=== PATIENT | male | born 1955 | race Caucasian/White ===

== ENCOUNTER 2017-07-28 18:31 | Emergency (ER) | payer MEDICAID, OTHER ==
[~2017-07-28] VITALS: Ht 174 cm; Wt 97.2 kg
[~2017-07-28 18:31] MED LIST: FERR325T28 PO; FOLI0.4T2 PO; FURO-150 PO; LACT10SO PO; MULT-933 PO; PANT40TA4 PO; SPIR25TA3 PO
[2017-07-28 21:56] LABS: ALANINE AMINOTRANSFERASE 31 U/L (12-78); ALBUMIN 1.7 G/DL (3.4-5.0); ALBUMIN/GLOBULIN RATIO 0.4 (1.1-1.5); ALKALINE PHOSPHATASE 235 IU/L (46-116); ANION GAP 11 (8-16); ASPARTATE AMINO TRANSFERASE 36 U/L (10-37); BILIRUBIN,TOTAL 0.7 MG/DL (0.1-1.0); BLOOD UREA NITROGEN 26 MG/DL (7-18); BUN/CREATININE RATIO 17.9 (5.4-32.0); CALCIUM 7.3 MG/DL (8.5-10.1); CHLORIDE 108 MMOL/L (99-107); CREATININE 1.45 MG/DL (0.60-1.10); GLUCOSE 114 MG/DL (70-104); POTASSIUM 3.1 MMOL/L (3.5-5.1); SODIUM 139 MMOL/L (135-145); TOTAL CARBON DIOXIDE 20.2 MMOL/L (24-32); TOTAL PROTEIN 6.5 G/DL (6.4-8.2); eGFR 49 ML/MIN
[2017-07-28 22:06] LABS: BASOPHILS % (AUTO) 0.3 % (0-1); EOSINOPHILS # (AUTO) 0.3 X10'3 (0-0.9); EOSINOPHILS % (AUTO) 3.7 % (0-6); HEMATOCRIT 24.4 % (42.0-52.0); HEMOGLOBIN 8.4 g/dl (14.0-17.9); LYMPHOCYTES # (AUTO) 0.7 X10'3 (1.1-4.8); LYMPHOCYTES % (AUTO) 7.2 % (21-51); MEAN CORPUSCULAR HEMOGLOBIN 30.6 PG (27.0-31.0); MEAN CORPUSCULAR HGB CONC 34.5 % (33.0-36.5); MEAN CORPUSCULAR VOLUME 88.5 FL (78-98); MEAN PLATELET VOLUME 6.6 FL (7.4-10.4); MONOCYTES # (AUTO) 0.8 X10'3 (0-0.9); MONOCYTES % (AUTO) 8.8 % (2-12); NEUTROPHILS # (AUTO) 7.2 X10'3 (1.8-7.7); PLATELET COUNT 120 X10'3 (140-440); RED BLOOD COUNT 2.76 X10'6 (4.70-6.10); RED CELL DISTRIBUTION WIDTH 19.5 % (11.5-14.5)
[2017-07-28 23:23] LABS: BFCOLOR RED
[2017-07-28 23:24] LABS: BF MESOTHELIAL CELLS FEW; BF RBC COUNT 51500 /CU MM; BF WBC COUNT 325 /CU MM (0-1000); BFVOLUME 7 ML; LYMPHOCYTES,BODY FLUID 10 %; MONOCYTES,BODY FLUID 8 %; NEUTROPHILS,BODY FLUID 82 %
[2017-07-28 23:25] LABS: BFAPPEAR BLOODY
[2017-07-29 00:10] VITALS: BP 138/77
== END 2017-07-28 23:58 | disposition home or self-care (01) ==
LOC: UNMERGE 18:32 → ER 18:32 → MERGE 18:32 → ER 23:58
DX: R18.8 Other ascites (principal); I50.9 Heart failure, unspecified; M06.9 Rheumatoid arthritis, unspecified; Z56.0 Unemployment, unspecified; Z60.2 Problems related to living alone; Z79.899 Other long term (current) drug therapy
CPT/HCPCS: 36415; 49082; 80053; 85025; 89051; 99285; A6257

== ENCOUNTER 2017-07-29 20:48 | Inpatient (IN) | payer MEDICAID, OTHER ==
[~2017-07-29] VITALS: Ht 175.3 cm; Wt 87.0 kg
[2017-07-29] MEDS ORDERED: normal saline 1000ML IV soln IVB ONE (22:15)
[2017-07-29 22:52] LABS: BASOPHILS % (AUTO) 0 % (0-1); EOSINOPHILS % (AUTO) 0.1 % (0-6); HEMATOCRIT 28.2 % (42.0-52.0); HEMOGLOBIN 9.5 g/dl (14.0-17.9); LYMPHOCYTES # (AUTO) 0.5 X10'3 (1.1-4.8); LYMPHOCYTES % (AUTO) 2.8 % (21-51); MEAN CORPUSCULAR HEMOGLOBIN 29.5 PG (27.0-31.0); MEAN CORPUSCULAR HGB CONC 33.7 % (33.0-36.5); MEAN CORPUSCULAR VOLUME 87.5 FL (78-98); MEAN PLATELET VOLUME 6.1 FL (7.4-10.4); MONOCYTES # (AUTO) 1.4 X10'3 (0-0.9); MONOCYTES % (AUTO) 7.1 % (2-12); NEUTROPHILS # (AUTO) 17.4 X10'3 (1.8-7.7); PLATELET COUNT 169 X10'3 (140-440); RED BLOOD COUNT 3.22 X10'6 (4.70-6.10); RED CELL DISTRIBUTION WIDTH 20.7 % (11.5-14.5); WHITE BLOOD COUNT 19.4 X10'3 (4.5-11.0)
[2017-07-29 23:03] LABS: INR 1.2 INR; PARTIAL THROMBOPLASTIN TIME 31 SECONDS (22-32)
[2017-07-29 23:11] LABS: LACTIC SEPSIS 1.4 MMOL/L (0.4-2.0)
[2017-07-29 23:18] LABS: ALANINE AMINOTRANSFERASE 35 U/L (12-78); ALBUMIN 1.8 G/DL (3.4-5.0); ALBUMIN/GLOBULIN RATIO 0.3 (1.1-1.5); ALKALINE PHOSPHATASE 255 IU/L (46-116); ANION GAP 11 (8-16); ASPARTATE AMINO TRANSFERASE 38 U/L (10-37); BILIRUBIN,TOTAL 0.8 MG/DL (0.1-1.0); BLOOD UREA NITROGEN 25 MG/DL (7-18); BUN/CREATININE RATIO 16.8 (5.4-32.0); CALCIUM 7.4 MG/DL (8.5-10.1); CHLORIDE 107 MMOL/L (99-107); CREATININE 1.49 MG/DL (0.60-1.10); ETHANOL < 0.010 GM/DL (0.0-0.010); GLUCOSE 119 MG/DL (70-104); SODIUM 138 MMOL/L (135-145); TOTAL CARBON DIOXIDE 19.9 MMOL/L (24-32); TOTAL PROTEIN 7.1 G/DL (6.4-8.2); eGFR 48 ML/MIN
[2017-07-30] MEDS ORDERED: lactulose 20gm/30ml cup PO ONE (00:05)
[2017-07-30] MEDS ORDERED: piperacillin/tazo 3.375gm/50ml 50 ML IV ONE ×2 (00:30→03:07)
[2017-07-30] MEDS ORDERED: magnesium 4gm in 100ml NS 100 ML IV PRN (00:45)
[2017-07-30] MEDS ORDERED: magnesium 2GM in 50ml NS 50 ML IV PRN (00:45)
[2017-07-30] MEDS ORDERED: ondansetron/PF 4mg/2ml inj IV PRN (00:45)
[2017-07-30] MEDS ORDERED: magnesium Cl slow-release 64mg tablet PO PRN (00:45)
[2017-07-30] MEDS ORDERED: potassium Cl 20 mEq SR tablet PO PRN (00:45)
[2017-07-30] MEDS ORDERED: mag hydrox/Alum hydrox/simeth 30ml oral suspension PO PRN (00:45)
[2017-07-30] MEDS ORDERED: albuterol 2.5 MG/3 ML nebule NEB PRN (00:45)
[2017-07-30] MEDS ORDERED: potassium Cl 40MEQ/NS 500ml 500 ML IV PRN ×2 (00:45)
[2017-07-30] MEDS ORDERED: HYDROmorphone inj. 0.5 MG/0.5 ML DISP.SYRIN IV PRN ×2 (00:45)
[2017-07-30] MEDS ORDERED: magnesium hydroxide 30ml (MOM) UD suspension PO PRN (00:45)
[2017-07-30 01:05] LABS: URINE AMPHETAMINE SCREEN POSITIVE (Neg); URINE BARBITUATE SCREEN NEGATIVE (Neg); URINE BENZODIAZEPINES SCREEN NEGATIVE (Neg); URINE CANNABINOID SCREEN NEGATIVE (Neg); URINE COCAINE SCREEN NEGATIVE (Neg); URINE METHADONE SCREEN NEGATIVE (Neg); URINE OPIATE SCREEN POSITIVE (Neg); URINE PHENCYCLIDINE SCREEN NEGATIVE (Neg)
[2017-07-30 02:15] VITALS: BP 115/81
[2017-07-30] MEDS: normal saline 1000ml 1,000 ML IV SCH ×2 (02:27→12:49)
[2017-07-30] MEDS: K and/or MAG REPLACEMENT MC SCH (08:00)
[2017-07-30] MEDS: piperacillin/tazo 4.5gm/100ml 100 ML IV SCH ×2 (08:37→14:50)
[2017-07-30] MEDS: heparin, porcine 5000 units/ml vial SQ SCH ×2 (08:41→20:42)
[2017-07-30 08:59] VITALS: BP 112/65
[2017-07-30 10:40] LABS: ALBUMIN 1.6 G/DL (3.4-5.0); ANION GAP 10 (8-16); BLOOD UREA NITROGEN 27 MG/DL (7-18); BUN/CREATININE RATIO 17.5 (5.4-32.0); CALCIUM 7.8 MG/DL (8.5-10.1); CHLORIDE 110 MMOL/L (99-107); CREATININE 1.54 MG/DL (0.60-1.10); GLUCOSE 74 MG/DL (70-104); POTASSIUM 4.1 MMOL/L (3.5-5.1); SODIUM 140 MMOL/L (135-145); eGFR 46 ML/MIN
[2017-07-30] MEDS ORDERED: PANT40TA4 PO (11:49)
[2017-07-30] MEDS ORDERED: MULT-933 PO (11:49)
[2017-07-30] MEDS ORDERED: FURO20TA4 PO (11:49)
[2017-07-30] MEDS ORDERED: POTA10TA15 PO (11:49)
[2017-07-30 15:12] VITALS: BP 114/68
[2017-07-30 16:00] VITALS: BP 95/69
[2017-07-30] MEDS ORDERED: ibuprofen 200mg tablet PO PRN (20:45)
[2017-07-30] MEDS ORDERED: temazepam 15mg capsule PO PRN (21:00)
[2017-07-30 22:00] VITALS: BP 99/64
[2017-07-30] MEDS ORDERED: furosemide 40mg/4ml inj IV ONE (23:20)
[2017-07-30] MEDS ORDERED: LORazepam 0.5 MG tablet PO PRN (23:20)
[2017-07-31] VITALS (9 sets, daily range): BP systolic 100–122; BP diastolic 62–76
[2017-07-31] MEDS: piperacillin/tazo 4.5gm/100ml 100 ML IV SCH ×4 (00:30→23:59)
[2017-07-31] MEDS: lactulose 20gm/30ml cup PO SCH ×4 (01:50→20:10)
[2017-07-31 05:56] LABS: BASOPHILS % (AUTO) 0.3 % (0-1); EOSINOPHILS # (AUTO) 0.3 X10'3 (0-0.9); EOSINOPHILS % (AUTO) 4.5 % (0-6); HEMOGLOBIN 7.3 g/dl (14.0-17.9); LYMPHOCYTES # (AUTO) 0.5 X10'3 (1.1-4.8); LYMPHOCYTES % (AUTO) 7.2 % (21-51); MEAN CORPUSCULAR HGB CONC 34.7 % (33.0-36.5); MEAN CORPUSCULAR VOLUME 86.6 FL (78-98); MEAN PLATELET VOLUME 6.6 FL (7.4-10.4); MONOCYTES # (AUTO) 0.6 X10'3 (0-0.9); MONOCYTES % (AUTO) 7.5 % (2-12); NEUTROPHILS # (AUTO) 6.1 X10'3 (1.8-7.7); NEUTROPHILS % (AUTO) 80.5 % (42-75); PLATELET COUNT 101 X10'3 (140-440); RED BLOOD COUNT 2.43 X10'6 (4.70-6.10); RED CELL DISTRIBUTION WIDTH 19.8 % (11.5-14.5); WHITE BLOOD COUNT 7.6 X10'3 (4.5-11.0)
[2017-07-31 06:07] LABS: HEMATOCRIT 21.1 % (42.0-52.0)
[2017-07-31 06:36] LABS: ALANINE AMINOTRANSFERASE 34 U/L (12-78); ALBUMIN 1.5 G/DL (3.4-5.0); ALBUMIN/GLOBULIN RATIO 0.3 (1.1-1.5); ALKALINE PHOSPHATASE 201 IU/L (46-116); ANION GAP 10 (8-16); ASPARTATE AMINO TRANSFERASE 40 U/L (10-37); BILIRUBIN,TOTAL 0.7 MG/DL (0.1-1.0); BLOOD UREA NITROGEN 28 MG/DL (7-18); BUN/CREATININE RATIO 16.5 (5.4-32.0); CHLORIDE 110 MMOL/L (99-107); GLUCOSE 103 MG/DL (70-104); MAGNESIUM 1.9 MG/DL (1.5-2.4); POTASSIUM 3.7 MMOL/L (3.5-5.1); SODIUM 139 MMOL/L (135-145); TOTAL CARBON DIOXIDE 19.4 MMOL/L (24-32); TOTAL PROTEIN 5.8 G/DL (6.4-8.2); eGFR 41 ML/MIN
[2017-07-31] MEDS: heparin, porcine 5000 units/ml vial SQ SCH ×2 (07:29→21:52)
[2017-07-31] MEDS: furosemide 40mg/4ml inj IV SCH (07:29)
[2017-07-31] MEDS: K and/or MAG REPLACEMENT MC SCH (08:00)
[2017-07-31] MEDS ORDERED: acetaminophen 325mg tablet PO ONE (10:15)
[2017-07-31] MEDS ORDERED: diphenhydrAMINE 50 mg/ml inj IV ONE (10:15)
[2017-07-31] MEDS ORDERED: furosemide 40mg/4ml inj IV ONE (12:15)
[2017-07-31] MEDS: lactobacillus rhamnosus 10,000 MMU CELLS/CAPSULE PO SCH (20:10)
[2017-08-01] VITALS (9 sets, daily range): BP systolic 99–117; BP diastolic 63–76
[2017-08-01] MEDS: lactulose 20gm/30ml cup PO SCH ×4 (02:00→19:21)
[2017-08-01 05:54] LABS: BASOPHILS % (AUTO) 0.5 % (0-1); EOSINOPHILS # (AUTO) 0.4 X10'3 (0-0.9); EOSINOPHILS % (AUTO) 5.8 % (0-6); HEMOGLOBIN 7.6 g/dl (14.0-17.9); LYMPHOCYTES # (AUTO) 0.5 X10'3 (1.1-4.8); LYMPHOCYTES % (AUTO) 7.7 % (21-51); MEAN CORPUSCULAR HEMOGLOBIN 29.8 PG (27.0-31.0); MEAN CORPUSCULAR HGB CONC 34.9 % (33.0-36.5); MEAN CORPUSCULAR VOLUME 85.5 FL (78-98); MEAN PLATELET VOLUME 6.1 FL (7.4-10.4); MONOCYTES # (AUTO) 0.6 X10'3 (0-0.9); MONOCYTES % (AUTO) 8.9 % (2-12); NEUTROPHILS # (AUTO) 5.2 X10'3 (1.8-7.7); NEUTROPHILS % (AUTO) 77.1 % (42-75); PLATELET COUNT 110 X10'3 (140-440); RED BLOOD COUNT 2.55 X10'6 (4.70-6.10); RED CELL DISTRIBUTION WIDTH 18.9 % (11.5-14.5); WHITE BLOOD COUNT 6.8 X10'3 (4.5-11.0)
[2017-08-01 06:10] LABS: ALANINE AMINOTRANSFERASE 33 U/L (12-78); ALBUMIN 1.4 G/DL (3.4-5.0); ALBUMIN/GLOBULIN RATIO 0.3 (1.1-1.5); ALKALINE PHOSPHATASE 189 IU/L (46-116); ANION GAP 11 (8-16); ASPARTATE AMINO TRANSFERASE 35 U/L (10-37); BLOOD UREA NITROGEN 23 MG/DL (7-18); BUN/CREATININE RATIO 13.9 (5.4-32.0); CHLORIDE 110 MMOL/L (99-107); CREATININE 1.66 MG/DL (0.60-1.10); GLUCOSE 94 MG/DL (70-104); MAGNESIUM 1.7 MG/DL (1.5-2.4); POTASSIUM 3.4 MMOL/L (3.5-5.1); SODIUM 140 MMOL/L (135-145); TOTAL CARBON DIOXIDE 19.2 MMOL/L (24-32); TOTAL PROTEIN 5.9 G/DL (6.4-8.2); eGFR 42 ML/MIN
[2017-08-01 06:15] LABS: HEMATOCRIT 21.8 % (42.0-52.0)
[2017-08-01] MEDS: K and/or MAG REPLACEMENT MC SCH (08:00)
[2017-08-01] MEDS: furosemide 40mg/4ml inj IV SCH (08:00)
[2017-08-01] MEDS: heparin, porcine 5000 units/ml vial SQ SCH ×2 (08:00→19:32)
[2017-08-01] MEDS: spironolactone 25 MG tablet PO SCH (08:30)
[2017-08-01] MEDS: lactobacillus rhamnosus 10,000 MMU CELLS/CAPSULE PO SCH ×2 (08:49→19:21)
[2017-08-01] MEDS: piperacillin/tazo 4.5gm/100ml 100 ML IV SCH ×3 (08:50→23:53)
[2017-08-01] MEDS: potassium Cl 20 mEq SR tablet PO PRN ×3 (08:50→19:21)
[2017-08-01] MEDS ORDERED: albumin (human) 25% 100 ML IV solution IV ONE (11:50)
[2017-08-01 12:52] LABS: LDH,BODY FLUID 44 U/L
[2017-08-01 12:54] LABS: BFAPPEAR BLOODY; BFCOLOR RED; BFVOLUME 48 ML
[2017-08-01 15:33] LABS: BF RBC COUNT 20325 /CU MM; BF WBC COUNT 158 /CU MM (0-1000)
[2017-08-01 15:38] LABS: LYMPHOCYTES,BODY FLUID 53 %; MONOCYTES,BODY FLUID 23 %; NEUTROPHILS,BODY FLUID 24 %
[2017-08-01] MEDS ORDERED: diphenhydrAMINE 50 mg/ml inj IV ONE (17:05)
[2017-08-01] MEDS ORDERED: acetaminophen 325mg tablet PO ONE (17:05)
[2017-08-01] MEDS ORDERED: furosemide 40mg/4ml inj IV ONE (19:05)
[2017-08-02] MEDS: lactulose 20gm/30ml cup PO SCH ×2 (02:00→08:00)
[2017-08-02] MEDS ORDERED: octreotide inj. 1,250 MCG in normal saline 250ml IV soln 243.75 ML IV SCH (04:05)
[2017-08-02] MEDS ORDERED: octreotide 200mcg/ml 5ml vial ONE (04:20)
[2017-08-02 06:00] VITALS: BP 106/69
[2017-08-02 06:07] LABS: BASOPHILS % (AUTO) 0.4 % (0-1); EOSINOPHILS # (AUTO) 0.3 X10'3 (0-0.9); EOSINOPHILS % (AUTO) 4.1 % (0-6); HEMATOCRIT 26.5 % (42.0-52.0); HEMOGLOBIN 9.3 g/dl (14.0-17.9); LYMPHOCYTES # (AUTO) 0.6 X10'3 (1.1-4.8); LYMPHOCYTES % (AUTO) 9.1 % (21-51); MEAN CORPUSCULAR HEMOGLOBIN 29.4 PG (27.0-31.0); MEAN CORPUSCULAR VOLUME 83.9 FL (78-98); MEAN PLATELET VOLUME 6.3 FL (7.4-10.4); MONOCYTES # (AUTO) 0.4 X10'3 (0-0.9); MONOCYTES % (AUTO) 6.7 % (2-12); NEUTROPHILS # (AUTO) 5.1 X10'3 (1.8-7.7); NEUTROPHILS % (AUTO) 79.7 % (42-75); PLATELET COUNT 113 X10'3 (140-440); RED BLOOD COUNT 3.16 X10'6 (4.70-6.10); RED CELL DISTRIBUTION WIDTH 19.8 % (11.5-14.5); WHITE BLOOD COUNT 6.4 X10'3 (4.5-11.0)
[2017-08-02 06:25] LABS: ALANINE AMINOTRANSFERASE 30 U/L (12-78); ALBUMIN/GLOBULIN RATIO 0.4 (1.1-1.5); ALKALINE PHOSPHATASE 174 IU/L (46-116); ANION GAP 13 (8-16); ASPARTATE AMINO TRANSFERASE 29 U/L (10-37); BILIRUBIN,TOTAL 1.8 MG/DL (0.1-1.0); BLOOD UREA NITROGEN 21 MG/DL (7-18); BUN/CREATININE RATIO 13.2 (5.4-32.0); CALCIUM 7.4 MG/DL (8.5-10.1); CHLORIDE 110 MMOL/L (99-107); CREATININE 1.59 MG/DL (0.60-1.10); GLUCOSE 81 MG/DL (70-104); MAGNESIUM 1.9 MG/DL (1.5-2.4); POTASSIUM 3.2 MMOL/L (3.5-5.1); SODIUM 142 MMOL/L (135-145); TOTAL CARBON DIOXIDE 18.8 MMOL/L (24-32); TOTAL PROTEIN 6.6 G/DL (6.4-8.2); eGFR 44 ML/MIN
[2017-08-02] MEDS: heparin, porcine 5000 units/ml vial SQ SCH (08:00)
[2017-08-02] MEDS: K and/or MAG REPLACEMENT MC SCH (08:00)
[2017-08-02] MEDS ORDERED: pantoprazole 40 MG vial IV SCH (08:00)
[2017-08-02] MEDS: spironolactone 25 MG tablet PO SCH (08:18)
[2017-08-02] MEDS: furosemide 40mg/4ml inj IV SCH (08:22)
[2017-08-02] MEDS: piperacillin/tazo 4.5gm/100ml 100 ML IV SCH (08:23)
[2017-08-02] MEDS: lactobacillus rhamnosus 10,000 MMU CELLS/CAPSULE PO SCH (08:30)
[2017-08-02] MEDS ORDERED: potassium Cl 20 mEq SR tablet PO STA (11:39)
[2017-08-02 13:24] LABS: HBSAG SCREEN Negative (Negative); HEP A AB, IGM Negative (Negative); HEPATITIS C ANTIBODY 0.1 s/co ratio (0.0-0.9)
[2017-08-02] MEDS ORDERED: piperacillin/tazobactam inj. 3.375 GM in normal saline 100ml IV SCH (14:00)
[2017-08-03] MEDS ORDERED: potassium Cl 20 mEq SR tablet PO SCH (08:00)
== END 2017-08-02 14:30 | disposition home or self-care (01) | DRG 279 ==
LOC: ER 20:48 → EDBD 20:48 → ED HOLD 07-30 00:41 → ORTHO 4S 07-30 01:50
PROVIDERS: ADMIT Internal Medicine; ATTEND Internal Medicine
PROC: 30233N1 Transfusion of Nonautologous Red Blood Cells into Peripheral Vein, Percutaneous Approach (ICD-10-PCS; 2017-07-31)
PROC: 0W9G3ZZ Drainage of Peritoneal Cavity, Percutaneous Approach (ICD-10-PCS; principal; 2017-08-01)
DX: K72.00 Acute and subacute hepatic failure without coma (principal); R65.11 Systemic inflammatory response syndrome (SIRS) of non-infectious origin with acute organ dysfunction; G93.41 Metabolic encephalopathy; N17.9 Acute kidney failure, unspecified; R18.8 Other ascites; K74.60 Unspecified cirrhosis of liver; E87.0 Hyperosmolality and hypernatremia; D69.59 Other secondary thrombocytopenia; K76.6 Portal hypertension; D63.8 Anemia in other chronic diseases classified elsewhere; F11.10 Opioid abuse, uncomplicated; F15.10 Other stimulant abuse, uncomplicated
CPT/HCPCS: 36415; 49083; 70450; 71045; 80048; 80053; 80305; 80320; 82140; 83605; 83615; 83735; 84443; 85025; 85610; 85730; 86709; 86803; 86885; 86900; 86901; 86920; 87040; 87070; 87075; 87340; 89051; 93005; 94760; 99285; C9113; J1200; J1644; J1940; J2354; J2543; J7030; P9016; P9047

== ENCOUNTER 2017-08-25 00:42 | Inpatient (IN) | payer MEDICAID ==
[2017-08-25] VITALS (11 sets, daily range): BP systolic 110–128; BP diastolic 67–85
[~2017-08-25] VITALS: Ht 175.3 cm; Wt 100.0 kg
[~2017-08-25 00:42] MED LIST changes: +FURO20TA4 PO; +MYCOL15CR TOP; +POTA10TA15 PO
[2017-08-25 02:19] LABS: BASOPHILS % (AUTO) 0 % (0-1); EOSINOPHILS # (AUTO) 0.2 X10'3 (0-0.9); EOSINOPHILS % (AUTO) 1.7 % (0-6); LYMPHOCYTES # (AUTO) 0.5 X10'3 (1.1-4.8); LYMPHOCYTES % (AUTO) 4.9 % (21-51); MEAN CORPUSCULAR HEMOGLOBIN 28.3 PG (27.0-31.0); MEAN CORPUSCULAR HGB CONC 33.8 % (33.0-36.5); MEAN CORPUSCULAR VOLUME 83.9 FL (78-98); MEAN PLATELET VOLUME 6.4 FL (7.4-10.4); MONOCYTES # (AUTO) 0.4 X10'3 (0-0.9); NEUTROPHILS # (AUTO) 8.5 X10'3 (1.8-7.7); NEUTROPHILS % (AUTO) 89.4 % (42-75); PLATELET COUNT 141 X10'3 (140-440); RED BLOOD COUNT 2.48 X10'6 (4.70-6.10); RED CELL DISTRIBUTION WIDTH 16.1 % (11.5-14.5); WHITE BLOOD COUNT 9.6 X10'3 (4.5-11.0)
[2017-08-25] MEDS ORDERED: morphine 4 MG/ML inj SYRINge IV ONE (02:20)
[2017-08-25 02:22] LABS: HEMATOCRIT 20.8 % (42.0-52.0)
[2017-08-25 02:23] LABS: INR 1.3 INR; PARTIAL THROMBOPLASTIN TIME 32 SECONDS (22-32); PROTHROMBIN TIME 13.4 SECONDS (9.0-12.0)
[2017-08-25 02:26] LABS: ALANINE AMINOTRANSFERASE 21 U/L (12-78); ALBUMIN 1.5 G/DL (3.4-5.0); ALBUMIN/GLOBULIN RATIO 0.3 (1.1-1.5); ALKALINE PHOSPHATASE 188 IU/L (46-116); ANION GAP 13 (8-16); ASPARTATE AMINO TRANSFERASE 23 U/L (10-37); BILIRUBIN,TOTAL 0.7 MG/DL (0.1-1.0); BLOOD UREA NITROGEN 25 MG/DL (7-18); BUN/CREATININE RATIO 12.6 (5.4-32.0); CALCIUM 7.5 MG/DL (8.5-10.1); CHLORIDE 109 MMOL/L (99-107); CREATINE KINASE 73 U/L (39-308); CREATININE 1.99 MG/DL (0.60-1.10); GLUCOSE 142 MG/DL (70-104); MAGNESIUM 1.7 MG/DL (1.5-2.4); SODIUM 141 MMOL/L (135-145); TOTAL CARBON DIOXIDE 19.2 MMOL/L (24-32); TOTAL PROTEIN 6.6 G/DL (6.4-8.2); eGFR 34 ML/MIN
[2017-08-25 02:32] LABS: POTASSIUM 2.9 MMOL/L (3.5-5.1)
[2017-08-25 02:33] LABS: ETHANOL < 0.010 GM/DL (0.0-0.010)
[2017-08-25] MEDS ORDERED: potassium chloride 10mEq CAPSULE.SA PO ONE (02:46)
[2017-08-25] MEDS ORDERED: potassium Cl 20 mEq/100mL bag IV ONE (02:50)
[2017-08-25 03:52] LABS: PLATELET ESTIMATE NORMAL; TOTAL CELLS COUNTED 100
[2017-08-25 03:53] LABS: ANISOCYTOSIS 1+; POIKILOCYTOSIS FEW
[2017-08-25 03:54] LABS: TOXIC GRANULATION 1+; TOXIC VACUOLATION 1+
[2017-08-25] MEDS ORDERED: potassium Cl 20 mEq SR tablet PO ONE (04:52)
[2017-08-25 05:33] LABS: CLARITY,URINE CLOUDY (Clear); COLOR,URINE YELLOW (Yellow); GLUCOSE, URINE NEGATIVE (Neg); KETONES,URINE NEGATIVE (Neg); LEUKOCYTE ESTERASE ,URINE SMALL (Neg); NITRITES, URINE NEGATIVE (Neg); OCCULT BLOOD,URINE LARGE (Neg); PROTEIN,URINE 30 mg/dl (Neg); UROBILINOGEN,URINE 0.2 E.U/dL (0.2-1.0)
[2017-08-25 05:44] LABS: UA COLLECTION TYPE CLN CATCH MIDSTREAM
[2017-08-25 05:51] LABS: URINE AMPHETAMINE SCREEN POSITIVE (Neg); URINE BARBITUATE SCREEN NEGATIVE (Neg); URINE BENZODIAZEPINES SCREEN NEGATIVE (Neg); URINE CANNABINOID SCREEN NEGATIVE (Neg); URINE COCAINE SCREEN NEGATIVE (Neg); URINE METHADONE SCREEN NEGATIVE (Neg); URINE OPIATE SCREEN POSITIVE (Neg); URINE PHENCYCLIDINE SCREEN NEGATIVE (Neg)
[2017-08-25 06:40] LABS: BACTERIA,URINE 4+ /HPF (Neg); MUCUS STRANDS FEW /LPF (Neg); RBC,URINE 20-50 /HPF (0-2); SQUAMOUS EPITHELIAL CELL,UR NONE SEEN /LPF (FEW); WBC,URINE 50-100 /HPF (0-4)
[2017-08-25 06:42] LABS: HYALINE CASTS 0-3 /LPF (NEGATIVE)
[2017-08-25] MEDS ORDERED: CefTRIAXone 2gm/D5W 50ml 50 ML IV ONE (07:25)
[2017-08-25] MEDS ORDERED: potassium Cl 40MEQ/NS 500ml 500 ML IV PRN ×2 (09:05)
[2017-08-25] MEDS ORDERED: ondansetron/PF 4mg/2ml inj IV PRN (09:05)
[2017-08-25] MEDS: K and/or MAG REPLACEMENT MC SCH (09:05)
[2017-08-25] MEDS ORDERED: HYDROcodone/acetaminophen 5mg/325mg tablet PO PRN (09:05)
[2017-08-25] MEDS ORDERED: mag hydrox/Alum hydrox/simeth 30ml oral suspension PO PRN (09:05)
[2017-08-25] MEDS ORDERED: magnesium 4gm in 100ml NS 100 ML IV PRN (09:05)
[2017-08-25] MEDS ORDERED: potassium Cl 20 mEq SR tablet PO PRN (09:05)
[2017-08-25] MEDS ORDERED: magnesium hydroxide 30ml (MOM) UD suspension PO PRN (09:05)
[2017-08-25] MEDS ORDERED: acetaminophen 650mg rectal suppository RC PRN (09:05)
[2017-08-25] MEDS ORDERED: morphine 4 MG/ML inj SYRINge IV PRN (09:05)
[2017-08-25] MEDS ORDERED: diphenhydrAMINE 50 mg/ml inj IV PRN (09:05)
[2017-08-25] MEDS ORDERED: magnesium 2GM in 50ml NS 50 ML IV PRN (09:05)
[2017-08-25] MEDS: CefTRIAXone/D5W-Rocephin 1gm 50 ML IV SCH (09:05)
[2017-08-25] MEDS ORDERED: acetaminophen 325mg tablet PO PRN ×2 (09:05)
[2017-08-25] MEDS ORDERED: LIDOcaine 2% 10ml TOPICAL JELLY (Urojet) MM ONE (10:30)
[2017-08-25] MEDS: octreotide inj. 1,250 MCG in normal saline 250ml IV soln 243.75 ML IV SCH (12:48)
[2017-08-25] MEDS: sodium bicarbonate 650mg tablet PO SCH ×2 (13:00→20:57)
[2017-08-25] MEDS ORDERED: LIDOcaine 1%/PF (10mg/ml) 5ml vial ONE (13:43)
[2017-08-25] MEDS: normal saline 1000ml 1,000 ML IV SCH (13:53)
[2017-08-25] MEDS: pantoprazole 40MG/NS 100ML BAG 100 ML IV SCH ×3 (13:53→20:58)
[2017-08-25 14:48] LABS: ALBUMIN,BODY FLUID < 0.6 G/DL
[2017-08-25 15:21] LABS: LYMPHOCYTES,BODY FLUID 36 %; MONOCYTES,BODY FLUID 31 %; NEUTROPHILS,BODY FLUID 33 %
[2017-08-25 15:27] LABS: BF RBC COUNT 195 /CU MM; BF WBC COUNT 110 /CU MM (0-1000); BFAPPEAR HAZY; BFCOLOR YELLOW; BFVOLUME 60 ML
[2017-08-25 15:28] LABS: BF MESOTHELIAL CELLS FEW
[2017-08-25] MEDS: vancomycin inj 1,250 MG in normal saline 250ml IV soln 250 ML IV SCH (16:09)
[2017-08-25] MEDS: lactulose 20gm/30ml cup PO SCH (16:51)
[2017-08-25] MEDS: furosemide 10 MG/1 ML 10ml inj IV SCH ×2 (16:51→20:57)
[2017-08-25] MEDS: lactobacillus rhamnosus 10,000 MMU CELLS/CAPSULE PO SCH (20:57)
[2017-08-25] MEDS: heparin, porcine 5000 units/ml vial SQ SCH (20:58)
[2017-08-25] MEDS: potassium Cl 20 mEq SR tablet PO PRN (21:57)
[2017-08-25] MEDS: HYDROcodone/acetaminophen 10/325mg tab PO PRN (22:24)
[2017-08-26] VITALS (17 sets, daily range): BP systolic 104–136; BP diastolic 67–88
[2017-08-26] MEDS: lactulose 20gm/30ml cup PO SCH ×3 (00:19→16:00)
[2017-08-26] MEDS: pantoprazole 40MG/NS 100ML BAG 100 ML IV SCH ×5 (01:29→20:53)
[2017-08-26 05:34] LABS: BASOPHILS % (AUTO) 0.1 % (0-1); EOSINOPHILS # (AUTO) 0.3 X10'3 (0-0.9); EOSINOPHILS % (AUTO) 4.1 % (0-6); HEMOGLOBIN 8.5 g/dl (14.0-17.9); LYMPHOCYTES # (AUTO) 0.5 X10'3 (1.1-4.8); LYMPHOCYTES % (AUTO) 7.6 % (21-51); MEAN CORPUSCULAR HEMOGLOBIN 28.4 PG (27.0-31.0); MEAN CORPUSCULAR VOLUME 83.5 FL (78-98); MEAN PLATELET VOLUME 5.9 FL (7.4-10.4); MONOCYTES # (AUTO) 0.3 X10'3 (0-0.9); MONOCYTES % (AUTO) 4.2 % (2-12); PLATELET COUNT 107 X10'3 (140-440); RED CELL DISTRIBUTION WIDTH 16.4 % (11.5-14.5); WHITE BLOOD COUNT 7.2 X10'3 (4.5-11.0)
[2017-08-26 06:07] LABS: ALANINE AMINOTRANSFERASE 20 U/L (12-78); ALBUMIN 1.3 G/DL (3.4-5.0); ALBUMIN/GLOBULIN RATIO 0.3 (1.1-1.5); ALKALINE PHOSPHATASE 143 IU/L (46-116); ANION GAP 11 (8-16); ASPARTATE AMINO TRANSFERASE 19 U/L (10-37); BILIRUBIN,TOTAL 0.9 MG/DL (0.1-1.0); BLOOD UREA NITROGEN 26 MG/DL (7-18); BUN/CREATININE RATIO 13.1 (5.4-32.0); CALCIUM 7.4 MG/DL (8.5-10.1); CHLORIDE 110 MMOL/L (99-107); CREATININE 1.98 MG/DL (0.60-1.10); GLUCOSE 91 MG/DL (70-104); MAGNESIUM 1.6 MG/DL (1.5-2.4); PHOSPHORUS 4.1 MG/DL (2.3-4.5); POTASSIUM 3.7 MMOL/L (3.5-5.1); SODIUM 142 MMOL/L (135-145); TOTAL CARBON DIOXIDE 21.3 MMOL/L (24-32); TOTAL PROTEIN 6.2 G/DL (6.4-8.2); eGFR 35 ML/MIN
[2017-08-26] MEDS: CefTRIAXone/D5W-Rocephin 1gm 50 ML IV SCH (07:16)
[2017-08-26] MEDS: heparin, porcine 5000 units/ml vial SQ SCH ×2 (08:00→20:56)
[2017-08-26] MEDS: K and/or MAG REPLACEMENT MC SCH (08:00)
[2017-08-26] MEDS: furosemide 10 MG/1 ML 10ml inj IV SCH ×2 (08:34→20:56)
[2017-08-26] MEDS: pantoprazole 40mg Tablet.DR PO SCH (08:35)
[2017-08-26] MEDS: ferrous sulfate 325mg tablet PO SCH (08:35)
[2017-08-26] MEDS: folic acid 0.4mg tablet PO SCH (08:35)
[2017-08-26] MEDS: lactobacillus rhamnosus 10,000 MMU CELLS/CAPSULE PO SCH ×2 (08:35→20:56)
[2017-08-26] MEDS: sodium bicarbonate 650mg tablet PO SCH ×3 (08:35→20:56)
[2017-08-26] MEDS: vancomycin inj 1,250 MG in normal saline 250ml IV soln 250 ML IV SCH (08:38)
[2017-08-26] MEDS: spironolactone 25 MG tablet PO SCH (09:29)
[2017-08-26] MEDS: rifaximin 550mg tablet PO SCH ×2 (10:33→20:56)
[2017-08-26] MEDS: HYDROcodone/acetaminophen 10/325mg tab PO PRN ×2 (10:47→21:12)
[2017-08-26] MEDS: octreotide inj. 1,250 MCG in normal saline 250ml IV soln 243.75 ML IV SCH (12:59)
[2017-08-26] MEDS ORDERED: MIDAZolam 5mg/5ml vial ONE (13:36)
[2017-08-26] MEDS ORDERED: fentaNYL/PF 50MCG/1 ML 2ML syringe ONE (13:36)
[2017-08-26] MEDS ORDERED: LIDOcaine Viscous 15ml cup ONE (13:37)
[2017-08-26] MEDS ORDERED: fluconazole 100mg tablet PO ONE (15:00)
[2017-08-26] MEDS: emollient combination-Eucerin 250 ML LOTION TP SCH (20:54)
[2017-08-27] MEDS: lactulose 20gm/30ml cup PO SCH ×5 (00:42→20:31)
[2017-08-27] MEDS: pantoprazole 40MG/NS 100ML BAG 100 ML IV SCH ×3 (00:42→13:13)
[2017-08-27 02:00] VITALS: BP 115/80
[2017-08-27 06:00] VITALS: BP 112/70
[2017-08-27 06:01] LABS: BASOPHILS % (AUTO) 0.3 % (0-1); EOSINOPHILS # (AUTO) 0.3 X10'3 (0-0.9); EOSINOPHILS % (AUTO) 3.5 % (0-6); HEMATOCRIT 26.4 % (42.0-52.0); LYMPHOCYTES # (AUTO) 0.5 X10'3 (1.1-4.8); LYMPHOCYTES % (AUTO) 6.3 % (21-51); MEAN CORPUSCULAR HEMOGLOBIN 28.4 PG (27.0-31.0); MEAN CORPUSCULAR VOLUME 83.6 FL (78-98); MONOCYTES # (AUTO) 0.5 X10'3 (0-0.9); MONOCYTES % (AUTO) 5.8 % (2-12); NEUTROPHILS % (AUTO) 84.1 % (42-75); PLATELET COUNT 116 X10'3 (140-440); RED BLOOD COUNT 3.17 X10'6 (4.70-6.10); RED CELL DISTRIBUTION WIDTH 16.8 % (11.5-14.5); WHITE BLOOD COUNT 8.3 X10'3 (4.5-11.0)
[2017-08-27 06:17] LABS: ALANINE AMINOTRANSFERASE 19 U/L (12-78); ALBUMIN 1.3 G/DL (3.4-5.0); ALBUMIN/GLOBULIN RATIO 0.3 (1.1-1.5); ALKALINE PHOSPHATASE 135 IU/L (46-116); ANION GAP 11 (8-16); ASPARTATE AMINO TRANSFERASE 19 U/L (10-37); BILIRUBIN,TOTAL 0.6 MG/DL (0.1-1.0); BLOOD UREA NITROGEN 26 MG/DL (7-18); BUN/CREATININE RATIO 12.3 (5.4-32.0); CALCIUM 7.4 MG/DL (8.5-10.1); CHLORIDE 109 MMOL/L (99-107); CREATININE 2.12 MG/DL (0.60-1.10); GLUCOSE 126 MG/DL (70-104); MAGNESIUM 1.4 MG/DL (1.5-2.4); PHOSPHORUS 4.5 MG/DL (2.3-4.5); POTASSIUM 3.4 MMOL/L (3.5-5.1); SODIUM 142 MMOL/L (135-145); TOTAL CARBON DIOXIDE 22.4 MMOL/L (24-32); TOTAL PROTEIN 6.3 G/DL (6.4-8.2); eGFR 32 ML/MIN
[2017-08-27] MEDS: K and/or MAG REPLACEMENT MC SCH (08:00)
[2017-08-27] MEDS ORDERED: atenolol 25mg tablet PO SCH (08:00)
[2017-08-27] MEDS: magnesium Cl slow-release 64mg tablet PO PRN ×2 (08:25→17:53)
[2017-08-27] MEDS: fluconazole 100mg tablet PO SCH (08:25)
[2017-08-27] MEDS: heparin, porcine 5000 units/ml vial SQ SCH (08:25)
[2017-08-27] MEDS: folic acid 0.4mg tablet PO SCH (08:26)
[2017-08-27] MEDS: rifaximin 550mg tablet PO SCH ×2 (08:26→20:32)
[2017-08-27] MEDS: potassium Cl 20 mEq SR tablet PO PRN ×3 (08:26→17:53)
[2017-08-27] MEDS: sodium bicarbonate 650mg tablet PO SCH ×3 (08:26→20:32)
[2017-08-27] MEDS: lactobacillus rhamnosus 10,000 MMU CELLS/CAPSULE PO SCH ×2 (08:26→20:32)
[2017-08-27] MEDS: spironolactone 25 MG tablet PO SCH (08:26)
[2017-08-27] MEDS: pantoprazole 40mg Tablet.DR PO SCH (08:26)
[2017-08-27] MEDS: emollient combination-Eucerin 250 ML LOTION TP SCH ×2 (08:26→20:33)
[2017-08-27] MEDS: ferrous sulfate 325mg tablet PO SCH (08:26)
[2017-08-27] MEDS: furosemide 10 MG/1 ML 10ml inj IV SCH ×2 (08:26→20:33)
[2017-08-27] MEDS: CefTRIAXone/D5W-Rocephin 1gm 50 ML IV SCH (08:27)
[2017-08-27] MEDS: HYDROcodone/acetaminophen 10/325mg tab PO PRN ×2 (10:02→19:27)
[2017-08-27] MEDS: vancomycin inj 1,250 MG in normal saline 250ml IV soln 250 ML IV SCH (10:03)
[2017-08-27] MEDS: normal saline 1000ml 1,000 ML IV SCH (10:03)
[2017-08-27 10:27] LABS: OCCULT BLOOD STOOL NEGATIVE (Neg)
[2017-08-27 11:00] VITALS: BP 109/71
[2017-08-27] MEDS: propranolol 10mg tablet PO SCH ×2 (13:12→20:33)
[2017-08-27] MEDS: octreotide inj. 1,250 MCG in normal saline 250ml IV soln 243.75 ML IV SCH (13:13)
[2017-08-27 19:00] VITALS: BP 98/71
[2017-08-27 23:00] VITALS: BP 110/66
[2017-08-28 03:00] VITALS: BP 105/63
[2017-08-28] MEDS: lactulose 20gm/30ml cup PO SCH ×4 (04:00→23:55)
[2017-08-28 06:25] LABS: BASOPHILS % (AUTO) 0.2 % (0-1); EOSINOPHILS # (AUTO) 0.4 X10'3 (0-0.9); EOSINOPHILS % (AUTO) 4.9 % (0-6); HEMATOCRIT 27.9 % (42.0-52.0); HEMOGLOBIN 9.5 g/dl (14.0-17.9); LYMPHOCYTES # (AUTO) 0.7 X10'3 (1.1-4.8); LYMPHOCYTES % (AUTO) 8.4 % (21-51); MEAN CORPUSCULAR HEMOGLOBIN 28.6 PG (27.0-31.0); MEAN CORPUSCULAR HGB CONC 34.1 % (33.0-36.5); MONOCYTES # (AUTO) 0.5 X10'3 (0-0.9); MONOCYTES % (AUTO) 6.1 % (2-12); NEUTROPHILS # (AUTO) 6.9 X10'3 (1.8-7.7); NEUTROPHILS % (AUTO) 80.4 % (42-75); PLATELET COUNT 106 X10'3 (140-440); RED BLOOD COUNT 3.33 X10'6 (4.70-6.10); RED CELL DISTRIBUTION WIDTH 16.4 % (11.5-14.5); WHITE BLOOD COUNT 8.6 X10'3 (4.5-11.0)
[2017-08-28 06:35] VITALS: BP 96/64
[2017-08-28 06:50] LABS: ALANINE AMINOTRANSFERASE 19 U/L (12-78); ALBUMIN 1.3 G/DL (3.4-5.0); ALBUMIN/GLOBULIN RATIO 0.3 (1.1-1.5); ALKALINE PHOSPHATASE 118 IU/L (46-116); ANION GAP 13 (8-16); ASPARTATE AMINO TRANSFERASE 16 U/L (10-37); BILIRUBIN,TOTAL 0.7 MG/DL (0.1-1.0); BLOOD UREA NITROGEN 29 MG/DL (7-18); BUN/CREATININE RATIO 13.1 (5.4-32.0); CALCIUM 7.6 MG/DL (8.5-10.1); CHLORIDE 109 MMOL/L (99-107); CREATININE 2.21 MG/DL (0.60-1.10); GLUCOSE 85 MG/DL (70-104); MAGNESIUM 1.5 MG/DL (1.5-2.4); PHOSPHORUS 4.3 MG/DL (2.3-4.5); POTASSIUM 3.4 MMOL/L (3.5-5.1); SODIUM 144 MMOL/L (135-145); TOTAL CARBON DIOXIDE 21.7 MMOL/L (24-32); TOTAL PROTEIN 6.1 G/DL (6.4-8.2); eGFR 30 ML/MIN
[2017-08-28] MEDS: pantoprazole 40mg Tablet.DR PO SCH (07:30)
[2017-08-28] MEDS: furosemide 10 MG/1 ML 10ml inj IV SCH ×2 (08:00→20:00)
[2017-08-28] MEDS: propranolol 10mg tablet PO SCH ×3 (08:00→21:30)
[2017-08-28] MEDS: spironolactone 25 MG tablet PO SCH (08:00)
[2017-08-28] MEDS: K and/or MAG REPLACEMENT MC SCH (08:38)
[2017-08-28] MEDS: CefTRIAXone/D5W-Rocephin 1gm 50 ML IV SCH (08:45)
[2017-08-28] MEDS: ferrous sulfate 325mg tablet PO SCH (08:54)
[2017-08-28] MEDS: folic acid 0.4mg tablet PO SCH (08:54)
[2017-08-28] MEDS: rifaximin 550mg tablet PO SCH ×2 (08:54→21:31)
[2017-08-28] MEDS: sodium bicarbonate 650mg tablet PO SCH ×3 (08:54→21:30)
[2017-08-28] MEDS: potassium Cl 20 mEq SR tablet PO PRN (08:54)
[2017-08-28] MEDS: fluconazole 100mg tablet PO SCH (08:55)
[2017-08-28] MEDS: emollient combination-Eucerin 250 ML LOTION TP SCH ×2 (08:55→21:31)
[2017-08-28] MEDS: lactobacillus rhamnosus 10,000 MMU CELLS/CAPSULE PO SCH ×2 (08:55→21:31)
[2017-08-28] MEDS ORDERED: vancomycin/NS 1 GM ADD-VANTAGE 250 ML IV SCH ×2 (09:00→12:00)
[2017-08-28 11:00] VITALS: BP 97/62
[2017-08-28] MEDS ORDERED: VANCOMYCIN LEVEL IV ONE (11:30)
[2017-08-28] MEDS: HYDROcodone/acetaminophen 10/325mg tab PO PRN ×2 (13:26→21:50)
[2017-08-28 15:00] VITALS: BP 107/69
[2017-08-28 19:00] VITALS: BP 100/66
[2017-08-28 23:00] VITALS: BP 96/61
[2017-08-29] MEDS: lactulose 20gm/30ml cup PO SCH ×4 (00:05→08:06)
[2017-08-29 03:00] VITALS: BP 108/68
[2017-08-29 05:11] LABS: BASOPHILS % (AUTO) 0.4 % (0-1); EOSINOPHILS # (AUTO) 0.5 X10'3 (0-0.9); HEMATOCRIT 28.8 % (42.0-52.0); HEMOGLOBIN 9.7 g/dl (14.0-17.9); LYMPHOCYTES % (AUTO) 10.9 % (21-51); MEAN CORPUSCULAR HEMOGLOBIN 28.4 PG (27.0-31.0); MEAN CORPUSCULAR HGB CONC 33.6 % (33.0-36.5); MEAN CORPUSCULAR VOLUME 84.5 FL (78-98); MEAN PLATELET VOLUME 6.3 FL (7.4-10.4); MONOCYTES # (AUTO) 0.7 X10'3 (0-0.9); MONOCYTES % (AUTO) 7.5 % (2-12); NEUTROPHILS % (AUTO) 76.2 % (42-75); PLATELET COUNT 110 X10'3 (140-440); RED BLOOD COUNT 3.41 X10'6 (4.70-6.10); RED CELL DISTRIBUTION WIDTH 16.5 % (11.5-14.5); WHITE BLOOD COUNT 9.2 X10'3 (4.5-11.0)
[2017-08-29 05:29] LABS: ALANINE AMINOTRANSFERASE 16 U/L (12-78); ALBUMIN 1.5 G/DL (3.4-5.0); ALBUMIN/GLOBULIN RATIO 0.3 (1.1-1.5); ALKALINE PHOSPHATASE 124 IU/L (46-116); ANION GAP 7 (8-16); ASPARTATE AMINO TRANSFERASE 18 U/L (10-37); BILIRUBIN,TOTAL 0.7 MG/DL (0.1-1.0); BLOOD UREA NITROGEN 30 MG/DL (7-18); BUN/CREATININE RATIO 14.2 (5.4-32.0); CALCIUM 7.7 MG/DL (8.5-10.1); CHLORIDE 109 MMOL/L (99-107); CREATININE 2.12 MG/DL (0.60-1.10); MAGNESIUM 1.7 MG/DL (1.5-2.4); POTASSIUM 3.7 MMOL/L (3.5-5.1); SODIUM 141 MMOL/L (135-145); TOTAL CARBON DIOXIDE 24.8 MMOL/L (24-32); TOTAL PROTEIN 6.5 G/DL (6.4-8.2); eGFR 32 ML/MIN
[2017-08-29 05:30] LABS: GLUCOSE 106 MG/DL (70-104)
[2017-08-29 07:00] VITALS: BP 121/68
[2017-08-29] MEDS: K and/or MAG REPLACEMENT MC SCH (08:00)
[2017-08-29] MEDS: rifaximin 550mg tablet PO SCH (08:03)
[2017-08-29] MEDS: folic acid 0.4mg tablet PO SCH (08:03)
[2017-08-29] MEDS: spironolactone 25 MG tablet PO SCH (08:03)
[2017-08-29] MEDS: ferrous sulfate 325mg tablet PO SCH (08:03)
[2017-08-29] MEDS: fluconazole 100mg tablet PO SCH (08:03)
[2017-08-29] MEDS: pantoprazole 40mg Tablet.DR PO SCH (08:03)
[2017-08-29] MEDS: lactobacillus rhamnosus 10,000 MMU CELLS/CAPSULE PO SCH (08:03)
[2017-08-29] MEDS: sodium bicarbonate 650mg tablet PO SCH (08:03)
[2017-08-29] MEDS: propranolol 10mg tablet PO SCH (08:03)
[2017-08-29] MEDS: CefTRIAXone/D5W-Rocephin 1gm 50 ML IV SCH (08:04)
[2017-08-29] MEDS: furosemide 10 MG/1 ML 10ml inj IV SCH (08:05)
[2017-08-29] MEDS: emollient combination-Eucerin 250 ML LOTION TP SCH (08:06)
[2017-08-29 11:00] VITALS: BP 105/60
[2017-08-29] MEDS ORDERED: PROP10TA10 PO (11:29)
[2017-08-29] MEDS ORDERED: EMOL200L TP (11:29)
[2017-08-29] MEDS ORDERED: FLUC100T9 PO (11:29)
[2017-08-29] MEDS ORDERED: RIFA550T PO (11:29)
[2017-08-29] MEDS ORDERED: LACT1CAP26 PO (11:29)
[2017-08-29] MEDS ORDERED: SODI650T29 PO (11:29)
[2017-08-29] MEDS ORDERED: THI100T PO (11:29)
[2017-08-29] MEDS ORDERED: CEPH500C5 PO (11:29)
[2017-08-31] MEDS ORDERED: VANCOMYCIN LEVEL IV ONE (11:30)
== END 2017-08-29 12:40 | disposition home or self-care (01) | DRG 280 ==
LOC: ER 00:43 → ED HOLD 09:03 → EDBEDREQ 17:19 → PCU 3S 18:40
PROVIDERS: ADMIT Family Medicine; ATTEND Family Medicine
PROC: 0W9G3ZZ Drainage of Peritoneal Cavity, Percutaneous Approach (ICD-10-PCS; 2017-08-25)
PROC: 30233N1 Transfusion of Nonautologous Red Blood Cells into Peripheral Vein, Percutaneous Approach (ICD-10-PCS; 2017-08-25)
PROC: 06L38CZ Occlusion of Esophageal Vein with Extraluminal Device, Via Natural or Artificial Opening Endoscopic (ICD-10-PCS; principal; 2017-08-26)
DX: K70.31 Alcoholic cirrhosis of liver with ascites (principal); K70.40 Alcoholic hepatic failure without coma; R65.11 Systemic inflammatory response syndrome (SIRS) of non-infectious origin with acute organ dysfunction; K76.7 Hepatorenal syndrome; E43 Unspecified severe protein-calorie malnutrition; R64 Cachexia; B37.81 Candidal esophagitis; E72.20 Disorder of urea cycle metabolism, unspecified; I85.00 Esophageal varices without bleeding; E87.2 Acidosis; K76.6 Portal hypertension; I50.9 Heart failure, unspecified; L03.115 Cellulitis of right lower limb; L03.116 Cellulitis of left lower limb; D64.9 Anemia, unspecified; N50.89 Other specified disorders of the male genital organs; E87.6 Hypokalemia; N39.0 Urinary tract infection, site not specified; E83.42 Hypomagnesemia; I87.2 Venous insufficiency (chronic) (peripheral); B96.20 Unspecified Escherichia coli [E. coli] as the cause of diseases classified elsewhere; K31.89 Other diseases of stomach and duodenum; K92.2 Gastrointestinal hemorrhage, unspecified; N49.2 Inflammatory disorders of scrotum; F11.10 Opioid abuse, uncomplicated; F15.10 Other stimulant abuse, uncomplicated; Z51.5 Encounter for palliative care; Z59.0 Homelessness; Z91.14 Patient's other noncompliance with medication regimen; Z79.899 Other long term (current) drug therapy; Z68.32 Body mass index [BMI] 32.0-32.9, adult
CPT/HCPCS: 36415; 43244; 49083; 71045; 76870; 80053; 80202; 80305; 80320; 81001; 82042; 82140; 82272; 82550; 83605; 83735; 84100; 84132; 84484; 85025; 85610; 85730; 86885; 86900; 86901; 86920; 87040; 87070; 87077; 87088; 87186; 89051; 93005; 96374; 96375; 97116; 97162; 97530; 99285; A4315; A4620; A6212; A6258; C9113; G0500; J0696; J1644; J1940; J2001; J2250; J2270; J2354; J3010; J3370; J3480; J7030; P9016

== ENCOUNTER 2017-09-23 09:12 | Emergency (ER) | payer MEDICAID ==
[~2017-09-23] VITALS: Ht 175.3 cm; Wt 105.6 kg
[~2017-09-23 09:12] MED LIST changes: +CEPH500C5 PO; +EMOL200L TP; +FLUC100T9 PO; -FURO20TA4 PO; +LACT1CAP26 PO; -MULT-933 PO; -MYCOL15CR TOP; +PROP10TA10 PO; +RIFA550T PO; +SODI650T29 PO; +THI100T PO
[2017-09-23] MEDS ORDERED: LIDOcaine 1%/PF (10mg/ml) 5ml vial ONE (11:30)
[2017-09-23 11:35] VITALS: BP 120/77
[2017-09-23] MEDS ORDERED: albumin (human) 25% 100 ML IV solution IV ONE (11:35)
[2017-09-23 12:03] VITALS: BP 121/72
== END 2017-09-23 13:30 | disposition home or self-care (01) ==
LOC: ER 09:12
DX: K74.60 Unspecified cirrhosis of liver (principal); R18.8 Other ascites; F15.10 Other stimulant abuse, uncomplicated; F11.10 Opioid abuse, uncomplicated; Z95.1 Presence of aortocoronary bypass graft; Z59.0 Homelessness; Z79.899 Other long term (current) drug therapy
CPT/HCPCS: 49083; 93005; 96374; 99285; A6257; A6449; J2001; P9047

== ENCOUNTER 2017-10-12 07:16 | Emergency (ER) | payer MEDICAID, OTHER ==
[~2017-10-12] VITALS: Ht 175.3 cm; Wt 93.0 kg
[~2017-10-12 07:16] MED LIST changes: -SPIR25TA3 PO; +SPIR25TA5 PO
[2017-10-12 07:48] LABS: BASOPHILS % (AUTO) 0.5 % (0-1); EOSINOPHILS # (AUTO) 0.3 X10'3 (0-0.9); EOSINOPHILS % (AUTO) 6.2 % (0-6); HEMATOCRIT 27.5 % (42.0-52.0); HEMOGLOBIN 9.2 g/dl (14.0-17.9); LYMPHOCYTES # (AUTO) 0.4 X10'3 (1.1-4.8); LYMPHOCYTES % (AUTO) 8.8 % (21-51); MEAN CORPUSCULAR HEMOGLOBIN 29.3 PG (27.0-31.0); MEAN CORPUSCULAR HGB CONC 33.4 % (33.0-36.5); MEAN CORPUSCULAR VOLUME 87.6 FL (78-98); MEAN PLATELET VOLUME 6.5 FL (7.4-10.4); MONOCYTES # (AUTO) 0.4 X10'3 (0-0.9); NEUTROPHILS # (AUTO) 3.8 X10'3 (1.8-7.7); NEUTROPHILS % (AUTO) 75.5 % (42-75); PLATELET COUNT 123 X10'3 (140-440); RED BLOOD COUNT 3.14 X10'6 (4.70-6.10); RED CELL DISTRIBUTION WIDTH 17.6 % (11.5-14.5)
[2017-10-12 08:02] LABS: ALANINE AMINOTRANSFERASE 26 U/L (12-78); ALBUMIN/GLOBULIN RATIO 0.4 (1.1-1.5); ALKALINE PHOSPHATASE 270 IU/L (46-116); ANION GAP 9 (8-16); ASPARTATE AMINO TRANSFERASE 31 U/L (10-37); BILIRUBIN,TOTAL 0.7 MG/DL (0.1-1.0); BLOOD UREA NITROGEN 16 MG/DL (7-18); BUN/CREATININE RATIO 11.9 (5.4-32.0); CALCIUM 8.2 MG/DL (8.5-10.1); CHLORIDE 111 MMOL/L (99-107); CREATININE 1.34 MG/DL (0.60-1.10); GLUCOSE 93 MG/DL (70-104); POTASSIUM 3.9 MMOL/L (3.5-5.1); SODIUM 143 MMOL/L (135-145); TOTAL CARBON DIOXIDE 22.8 MMOL/L (24-32); TOTAL PROTEIN 7.5 G/DL (6.4-8.2); eGFR 54 ML/MIN
[2017-10-12 08:12] LABS: INR 1.2 INR; PARTIAL THROMBOPLASTIN TIME 31 SECONDS (22-32)
[2017-10-12 08:23] LABS: COLOR,URINE YELLOW (Yellow); GLUCOSE, URINE NEGATIVE (Neg); KETONES,URINE NEGATIVE (Neg); LEUKOCYTE ESTERASE ,URINE NEGATIVE (Neg); NITRITES, URINE NEGATIVE (Neg); OCCULT BLOOD,URINE LARGE (Neg); PH,URINE 6.5 (4.8-8.0); PROTEIN,URINE NEGATIVE (Neg); UROBILINOGEN,URINE 0.2 E.U/dL (0.2-1.0)
[2017-10-12 08:31] LABS: UA COLLECTION TYPE VOIDED
[2017-10-12 08:32] LABS: CLARITY,URINE SLIGHTLY CLOUDY (Clear)
[2017-10-12 08:36] LABS: WBC,URINE 0-4 /HPF (0-4)
[2017-10-12 08:37] LABS: BACTERIA,URINE NONE SEEN /HPF (Neg); RBC,URINE 20-50 /HPF (0-2); SQUAMOUS EPITHELIAL CELL,UR FEW /LPF (FEW)
[2017-10-12 10:18] VITALS: BP 110/71
[2017-10-12 11:10] VITALS: BP 102/65
[2017-10-12] MEDS ORDERED: albumin (Human) 5% 250 ML IV solution IV STA (11:13)
[2017-10-12 14:22] VITALS: BP 123/59
== END 2017-10-12 14:24 | disposition home or self-care (01) ==
LOC: ER 07:17
DX: R18.8 Other ascites (principal); K74.60 Unspecified cirrhosis of liver; F11.90 Opioid use, unspecified, uncomplicated; F15.90 Other stimulant use, unspecified, uncomplicated; Z59.0 Homelessness; Z79.899 Other long term (current) drug therapy; Z79.2 Long term (current) use of antibiotics
CPT/HCPCS: 36415; 49083; 80053; 81001; 85025; 85610; 85730; 99285; P9045

== ENCOUNTER 2017-10-28 12:59 | Emergency (ER) | payer MEDICAID, OTHER ==
[~2017-10-28] VITALS: Ht 175.3 cm; Wt 96.0 kg
[2017-10-28 14:30] LABS: BASOPHILS % (AUTO) 0.1 % (0-1); EOSINOPHILS # (AUTO) 0.2 X10'3 (0-0.9); EOSINOPHILS % (AUTO) 4.5 % (0-6); HEMATOCRIT 26.9 % (42.0-52.0); HEMOGLOBIN 9.2 g/dl (14.0-17.9); LYMPHOCYTES # (AUTO) 0.4 X10'3 (1.1-4.8); LYMPHOCYTES % (AUTO) 8.7 % (21-51); MEAN CORPUSCULAR HEMOGLOBIN 29.5 PG (27.0-31.0); MEAN CORPUSCULAR HGB CONC 34.1 % (33.0-36.5); MEAN CORPUSCULAR VOLUME 86.4 FL (78-98); MEAN PLATELET VOLUME 5.9 FL (7.4-10.4); MONOCYTES # (AUTO) 0.4 X10'3 (0-0.9); MONOCYTES % (AUTO) 8.1 % (2-12); NEUTROPHILS # (AUTO) 3.6 X10'3 (1.8-7.7); NEUTROPHILS % (AUTO) 78.6 % (42-75); PLATELET COUNT 79 X10'3 (140-440); RED BLOOD COUNT 3.11 X10'6 (4.70-6.10); RED CELL DISTRIBUTION WIDTH 15.7 % (11.5-14.5); WHITE BLOOD COUNT 4.5 X10'3 (4.5-11.0)
[2017-10-28 14:45] LABS: ALANINE AMINOTRANSFERASE 28 U/L (12-78); ALBUMIN/GLOBULIN RATIO 0.4 (1.1-1.5); ALKALINE PHOSPHATASE 286 IU/L (46-116); ANION GAP 8 (8-16); ASPARTATE AMINO TRANSFERASE 34 U/L (10-37); BILIRUBIN,TOTAL 0.8 MG/DL (0.1-1.0); BLOOD UREA NITROGEN 14 MG/DL (7-18); BUN/CREATININE RATIO 12.7 (5.4-32.0); CALCIUM 7.6 MG/DL (8.5-10.1); CHLORIDE 107 MMOL/L (99-107); LIPASE 139 U/L (73-393); POTASSIUM 3.5 MMOL/L (3.5-5.1); SODIUM 141 MMOL/L (135-145); TOTAL CARBON DIOXIDE 26.5 MMOL/L (24-32); TOTAL PROTEIN 6.9 G/DL (6.4-8.2); eGFR 68 ML/MIN
[2017-10-28 14:46] LABS: GLUCOSE 86 MG/DL (70-104)
[2017-10-28 15:51] VITALS: BP 123/78
== END 2017-10-28 16:04 | disposition home or self-care (01) ==
LOC: ER 12:59
DX: R18.8 Other ascites (principal); F15.90 Other stimulant use, unspecified, uncomplicated; F11.90 Opioid use, unspecified, uncomplicated; Z59.0 Homelessness; Z79.899 Other long term (current) drug therapy
CPT/HCPCS: 36415; 49083; 80053; 83690; 85025; 99285; A6449

== ENCOUNTER 2017-10-30 16:27 | Emergency (ER) | payer MEDICAID, OTHER ==
[~2017-10-30] VITALS: Ht 175.3 cm; Wt 91.0 kg
[2017-10-30 16:32] VITALS: BP 134/88
[2017-10-30] MEDS ORDERED: glycopyrrolate 0.2mg/ml inj IV ONE (16:55)
[2017-10-30] MEDS ORDERED: normal saline 1000ML IV soln IVB ONE (16:55)
[2017-10-30 17:53] LABS: BASOPHILS % (AUTO) 0.2 % (0-1); EOSINOPHILS # (AUTO) 0.1 X10'3 (0-0.9); EOSINOPHILS % (AUTO) 1.5 % (0-6); HEMATOCRIT 29.2 % (42.0-52.0); LYMPHOCYTES # (AUTO) 0.3 X10'3 (1.1-4.8); LYMPHOCYTES % (AUTO) 3.8 % (21-51); MEAN CORPUSCULAR HEMOGLOBIN 29.6 PG (27.0-31.0); MEAN CORPUSCULAR HGB CONC 34.1 % (33.0-36.5); MEAN CORPUSCULAR VOLUME 86.7 FL (78-98); MEAN PLATELET VOLUME 6.3 FL (7.4-10.4); MONOCYTES # (AUTO) 0.4 X10'3 (0-0.9); MONOCYTES % (AUTO) 5.5 % (2-12); NEUTROPHILS # (AUTO) 6.8 X10'3 (1.8-7.7); PLATELET COUNT 90 X10'3 (140-440); RED BLOOD COUNT 3.37 X10'6 (4.70-6.10); RED CELL DISTRIBUTION WIDTH 15.6 % (11.5-14.5); WHITE BLOOD COUNT 7.6 X10'3 (4.5-11.0)
[2017-10-30 18:06] LABS: ALANINE AMINOTRANSFERASE 31 U/L (12-78); ALBUMIN/GLOBULIN RATIO 0.4 (1.1-1.5); ALKALINE PHOSPHATASE 302 IU/L (46-116); ANION GAP 6 (8-16); ASPARTATE AMINO TRANSFERASE 40 U/L (10-37); BILIRUBIN,TOTAL 1.1 MG/DL (0.1-1.0); BLOOD UREA NITROGEN 13 MG/DL (7-18); BUN/CREATININE RATIO 10.2 (5.4-32.0); CALCIUM 8.2 MG/DL (8.5-10.1); CHLORIDE 104 MMOL/L (99-107); CREATININE 1.27 MG/DL (0.60-1.10); GLUCOSE 100 MG/DL (70-104); LIPASE 177 U/L (73-393); POTASSIUM 3.5 MMOL/L (3.5-5.1); SODIUM 135 MMOL/L (135-145); TOTAL CARBON DIOXIDE 24.6 MMOL/L (24-32); TOTAL PROTEIN 7.3 G/DL (6.4-8.2); eGFR 58 ML/MIN
[2017-10-30] MEDS ORDERED: DICY10CA88 PO (18:16)
== END 2017-10-30 18:58 | disposition home or self-care (01) ==
LOC: ER 16:28
DX: R10.33 Periumbilical pain (principal); R19.7 Diarrhea, unspecified; F15.90 Other stimulant use, unspecified, uncomplicated; F11.90 Opioid use, unspecified, uncomplicated; Z59.0 Homelessness; Z79.899 Other long term (current) drug therapy
CPT/HCPCS: 36415; 80053; 83690; 85025; 96361; 96374; 99284; J3490; J7030

== ENCOUNTER 2017-12-08 17:55 | Emergency (ER) | payer OTHER ==
[~2017-12-08] VITALS: Ht 167.6 cm; Wt 104.1 kg
[2017-12-08 18:44] LABS: BASOPHILS % (AUTO) 0.4 % (0-1); EOSINOPHILS # (AUTO) 0.2 X10'3 (0-0.9); EOSINOPHILS % (AUTO) 5.1 % (0-6); HEMOGLOBIN 8.2 g/dl (14.0-17.9); LYMPHOCYTES # (AUTO) 0.4 X10'3 (1.1-4.8); LYMPHOCYTES % (AUTO) 10.9 % (21-51); MEAN CORPUSCULAR HEMOGLOBIN 29.1 PG (27.0-31.0); MEAN CORPUSCULAR HGB CONC 34.1 % (33.0-36.5); MEAN CORPUSCULAR VOLUME 85.5 FL (78-98); MEAN PLATELET VOLUME 6.2 FL (7.4-10.4); MONOCYTES # (AUTO) 0.4 X10'3 (0-0.9); MONOCYTES % (AUTO) 9.2 % (2-12); NEUTROPHILS # (AUTO) 2.9 X10'3 (1.8-7.7); NEUTROPHILS % (AUTO) 74.4 % (42-75); PLATELET COUNT 94 X10'3 (140-440); RED BLOOD COUNT 2.81 X10'6 (4.70-6.10); WHITE BLOOD COUNT 3.9 X10'3 (4.5-11.0)
[2017-12-08 18:51] LABS: INR 1.2 INR; PARTIAL THROMBOPLASTIN TIME 33 SECONDS (22-32); PROTHROMBIN TIME 12.5 SECONDS (9.0-12.0)
[2017-12-08 18:56] LABS: ALANINE AMINOTRANSFERASE 28 U/L (12-78); ALBUMIN 1.7 G/DL (3.4-5.0); ALBUMIN/GLOBULIN RATIO 0.3 (1.1-1.5); ALKALINE PHOSPHATASE 190 IU/L (46-116); ANION GAP 8 (8-16); ASPARTATE AMINO TRANSFERASE 30 U/L (10-37); BILIRUBIN,TOTAL 0.7 MG/DL (0.1-1.0); BLOOD UREA NITROGEN 12 MG/DL (7-18); CALCIUM 7.7 MG/DL (8.5-10.1); CHLORIDE 110 MMOL/L (99-107); GLUCOSE 111 MG/DL (70-104); POTASSIUM 3.3 MMOL/L (3.5-5.1); SODIUM 141 MMOL/L (135-145); TOTAL CARBON DIOXIDE 22.6 MMOL/L (24-32); TOTAL PROTEIN 6.6 G/DL (6.4-8.2); eGFR 61 ML/MIN
[2017-12-08] MEDS ORDERED: albumin (human) 25% 100 ML IV solution IV ONE (20:25)
[2017-12-08 23:02] VITALS: BP 126/77
== END 2017-12-08 23:04 | disposition home or self-care (01) ==
LOC: ER 17:55
DX: R18.8 Other ascites (principal); F15.90 Other stimulant use, unspecified, uncomplicated; F11.90 Opioid use, unspecified, uncomplicated; Z79.899 Other long term (current) drug therapy; Z59.0 Homelessness; Z60.2 Problems related to living alone
CPT/HCPCS: 36415; 49082; 71045; 80053; 84484; 85025; 85610; 85730; 93005; 96365; 99285; P9047; 96374

== ENCOUNTER 2017-12-27 13:18 | Inpatient (IN) | payer OTHER ==
[~2017-12-27] VITALS: Ht 175.3 cm; Wt 91.8 kg
[2017-12-27] MEDS ORDERED: morphine 4 MG/ML inj SYRINge IV ONE (15:15)
[2017-12-27 15:24] LABS: BASOPHILS % (AUTO) 0.1 % (0-1); EOSINOPHILS # (AUTO) 0.1 X10'3 (0-0.9); EOSINOPHILS % (AUTO) 1.9 % (0-6); LYMPHOCYTES # (AUTO) 0.4 X10'3 (1.1-4.8); LYMPHOCYTES % (AUTO) 5.2 % (21-51); MEAN CORPUSCULAR HEMOGLOBIN 28.9 PG (27.0-31.0); MEAN CORPUSCULAR HGB CONC 33.9 % (33.0-36.5); MEAN CORPUSCULAR VOLUME 85.4 FL (78-98); MEAN PLATELET VOLUME 6.1 FL (7.4-10.4); MONOCYTES # (AUTO) 0.5 X10'3 (0-0.9); MONOCYTES % (AUTO) 6.1 % (2-12); NEUTROPHILS # (AUTO) 6.4 X10'3 (1.8-7.7); NEUTROPHILS % (AUTO) 86.7 % (42-75); PLATELET COUNT 93 X10'3 (140-440); RED BLOOD COUNT 2.43 X10'6 (4.70-6.10); RED CELL DISTRIBUTION WIDTH 15.3 % (11.5-14.5); WHITE BLOOD COUNT 7.4 X10'3 (4.5-11.0)
[2017-12-27 15:31] LABS: HEMATOCRIT 20.8 % (42.0-52.0)
[2017-12-27 15:34] LABS: INR 1.3 INR; PARTIAL THROMBOPLASTIN TIME 33 SECONDS (22-32); PROTHROMBIN TIME 13.3 SECONDS (9.0-12.0)
[2017-12-27 15:49] LABS: ALANINE AMINOTRANSFERASE 22 U/L (12-78); ALBUMIN 1.5 G/DL (3.4-5.0); ALBUMIN/GLOBULIN RATIO 0.4 (1.1-1.5); ALKALINE PHOSPHATASE 133 IU/L (46-116); ANION GAP 8 (8-16); ASPARTATE AMINO TRANSFERASE 28 U/L (10-37); BILIRUBIN,TOTAL 1.1 MG/DL (0.1-1.0); BLOOD UREA NITROGEN 12 MG/DL (7-18); BUN/CREATININE RATIO 9.4 (5.4-32.0); CALCIUM 7.4 MG/DL (8.5-10.1); CHLORIDE 109 MMOL/L (99-107); CREATININE 1.27 MG/DL (0.60-1.10); GLUCOSE 123 MG/DL (70-104); POTASSIUM 3.2 MMOL/L (3.5-5.1); SODIUM 138 MMOL/L (135-145); TOTAL CARBON DIOXIDE 20.8 MMOL/L (24-32); TOTAL PROTEIN 5.5 G/DL (6.4-8.2); eGFR 57 ML/MIN
[2017-12-27] MEDS ORDERED: piperacillin/tazo 3.375gm/50ml 50 ML IV ONE (16:20)
[2017-12-27] MEDS ORDERED: lactulose 20gm/30ml cup PO ONE (16:20)
[2017-12-27 17:10] LABS: BFAPPEAR CLEAR
[2017-12-27 17:21] LABS: BFCOLOR STRAW
[2017-12-27 17:22] LABS: BFVOLUME 18 ML
[2017-12-27 17:24] LABS: BF RBC COUNT 405 /CU MM; BF WBC COUNT 69 /CU MM (0-1000)
[2017-12-27 17:27] LABS: LYMPHOCYTES,BODY FLUID 26 %; MONOCYTES,BODY FLUID 11 %; NEUTROPHILS,BODY FLUID 63 %
[2017-12-27] MEDS ORDERED: ondansetron/PF 4mg/2ml inj IV PRN (17:35)
[2017-12-27] MEDS ORDERED: magnesium hydroxide 30ml (MOM) UD suspension PO PRN (17:35)
[2017-12-27] MEDS ORDERED: acetaminophen 325mg tablet PO PRN (17:35)
[2017-12-27] MEDS ORDERED: mag hydrox/Alum hydrox/simeth 30ml oral suspension PO PRN (17:35)
[2017-12-27 17:44] LABS: OTHER CELLS,BODY FLUID MACROPHAGES
[2017-12-27 18:40] VITALS: BP 122/74
[2017-12-27] MEDS ORDERED: furosemide 20 MG/2 ML vial IV ONE ×2 (18:40)
[2017-12-27 18:59] VITALS: BP 144/99
[2017-12-27 20:00] VITALS: BP 119/81
[2017-12-27] MEDS: lactulose 20gm/30ml cup PO SCH (20:12)
[2017-12-27] MEDS: rifaximin 550mg tablet PO SCH (20:17)
[2017-12-27 20:55] LABS: CLARITY,URINE CLEAR (Clear); COLOR,URINE STRAW (Yellow); GLUCOSE, URINE NEGATIVE (Neg); KETONES,URINE NEGATIVE (Neg); OCCULT BLOOD,URINE MODERATE (Neg); PROTEIN,URINE NEGATIVE (Neg); UA COLLECTION TYPE CLN CATCH MIDSTREAM
[2017-12-27 20:56] LABS: LEUKOCYTE ESTERASE ,URINE NEGATIVE (Neg); NITRITES, URINE NEGATIVE (Neg); UROBILINOGEN,URINE 0.2 E.U/dL (0.2-1.0)
[2017-12-27 20:57] LABS: BACTERIA,URINE NONE SEEN /HPF (Neg); SQUAMOUS EPITHELIAL CELL,UR NONE SEEN /LPF (FEW); WBC,URINE NONE SEEN /HPF (0-4)
[2017-12-27 21:15] VITALS: BP 126/83
[2017-12-27] MEDS: pantoprazole 40MG/NS 100ML BAG 100 ML IV SCH (23:00)
[2017-12-28] VITALS: BP 112/82
[2017-12-28] MEDS: lactulose 20gm/30ml cup PO SCH ×4 (03:05→20:33)
[2017-12-28] MEDS: pantoprazole 40MG/NS 100ML BAG 100 ML IV SCH ×5 (03:06→20:33)
[2017-12-28 05:15] LABS: BASOPHILS % (AUTO) 0.3 % (0-1); EOSINOPHILS # (AUTO) 0.3 X10'3 (0-0.9); EOSINOPHILS % (AUTO) 4.3 % (0-6); HEMATOCRIT 23.9 % (42.0-52.0); HEMOGLOBIN 8.1 g/dl (14.0-17.9); LYMPHOCYTES # (AUTO) 0.6 X10'3 (1.1-4.8); LYMPHOCYTES % (AUTO) 8.1 % (21-51); MEAN CORPUSCULAR HEMOGLOBIN 29.1 PG (27.0-31.0); MEAN CORPUSCULAR HGB CONC 33.9 % (33.0-36.5); MEAN PLATELET VOLUME 6.1 FL (7.4-10.4); MONOCYTES # (AUTO) 0.5 X10'3 (0-0.9); MONOCYTES % (AUTO) 6.9 % (2-12); NEUTROPHILS # (AUTO) 5.8 X10'3 (1.8-7.7); NEUTROPHILS % (AUTO) 80.4 % (42-75); PLATELET COUNT 98 X10'3 (140-440); RED BLOOD COUNT 2.78 X10'6 (4.70-6.10); RED CELL DISTRIBUTION WIDTH 15.6 % (11.5-14.5); WHITE BLOOD COUNT 7.2 X10'3 (4.5-11.0)
[2017-12-28 05:21] LABS: INR 1.3 INR; PROTHROMBIN TIME 13.2 SECONDS (9.0-12.0)
[2017-12-28 05:33] LABS: ALANINE AMINOTRANSFERASE 19 U/L (12-78); ALBUMIN 1.6 G/DL (3.4-5.0); ALBUMIN/GLOBULIN RATIO 0.4 (1.1-1.5); ALKALINE PHOSPHATASE 129 IU/L (46-116); ANION GAP 8 (8-16); ASPARTATE AMINO TRANSFERASE 27 U/L (10-37); BILIRUBIN,TOTAL 1.9 MG/DL (0.1-1.0); BLOOD UREA NITROGEN 13 MG/DL (7-18); BUN/CREATININE RATIO 11.1 (5.4-32.0); CALCIUM 7.6 MG/DL (8.5-10.1); CHLORIDE 110 MMOL/L (99-107); CREATININE 1.17 MG/DL (0.60-1.10); GLUCOSE 86 MG/DL (70-104); POTASSIUM 3.1 MMOL/L (3.5-5.1); SODIUM 140 MMOL/L (135-145); TOTAL CARBON DIOXIDE 22.3 MMOL/L (24-32); TOTAL PROTEIN 5.8 G/DL (6.4-8.2); eGFR 63 ML/MIN
[2017-12-28 06:31] LABS: PLATELET ESTIMATE DECREASED
[2017-12-28 06:32] LABS: SCHISTOCYTES 1+
[2017-12-28 07:27] VITALS: BP 137/65
[2017-12-28] MEDS: furosemide 40mg/4ml inj IV SCH (08:05)
[2017-12-28] MEDS: rifaximin 550mg tablet PO SCH ×2 (08:05→20:33)
[2017-12-28] MEDS: spironolactone 25 MG tablet PO SCH (08:06)
[2017-12-28] MEDS: CefTRIAXone 2gm/D5W 50ml 50 ML IV SCH (08:07)
[2017-12-28 08:57] LABS: OCCULT BLOOD STOOL NEGATIVE (Neg)
[2017-12-28] MEDS ORDERED: LIDOcaine 1%/PF 5ML 10 MG/ML VIAL ONE (10:22)
[2017-12-28 11:32] VITALS: BP 110/81
[2017-12-28 11:53] VITALS: BP 130/82
[2017-12-28 12:03] VITALS: BP 103/68
[2017-12-28] MEDS ORDERED: albumin (human) 25% 100 ML IV solution IV ONE ×2 (12:15→13:00)
[2017-12-28] MEDS ORDERED: potassium Cl 20 mEq SR tablet PO SCH (13:30)
[2017-12-28] MEDS ORDERED: ASCO500T20 PO (14:36)
[2017-12-28] MEDS ORDERED: LACT1CAP65 PO (14:39)
[2017-12-28] MEDS ORDERED: THI100T PO (14:39)
[2017-12-28] MEDS ORDERED: LACT10SO PO (14:39)
[2017-12-28] MEDS ORDERED: SPIR25TA5 PO (14:39)
[2017-12-28 19:00] VITALS: BP 108/68
[2017-12-29 00:07] VITALS: BP 115/76
[2017-12-29] MEDS: pantoprazole 40MG/NS 100ML BAG 100 ML IV SCH ×3 (01:47→11:00)
[2017-12-29] MEDS: lactulose 20gm/30ml cup PO SCH ×2 (01:47→07:58)
[2017-12-29 05:39] LABS: BASOPHILS % (AUTO) 0.3 % (0-1); EOSINOPHILS # (AUTO) 0.2 X10'3 (0-0.9); EOSINOPHILS % (AUTO) 3.4 % (0-6); HEMATOCRIT 24.5 % (42.0-52.0); HEMOGLOBIN 8.3 g/dl (14.0-17.9); LYMPHOCYTES # (AUTO) 0.4 X10'3 (1.1-4.8); LYMPHOCYTES % (AUTO) 5.6 % (21-51); MEAN CORPUSCULAR HEMOGLOBIN 29.2 PG (27.0-31.0); MEAN CORPUSCULAR HGB CONC 33.7 % (33.0-36.5); MEAN CORPUSCULAR VOLUME 86.6 FL (78-98); MEAN PLATELET VOLUME 6.3 FL (7.4-10.4); MONOCYTES # (AUTO) 0.4 X10'3 (0-0.9); MONOCYTES % (AUTO) 6.5 % (2-12); NEUTROPHILS # (AUTO) 5.6 X10'3 (1.8-7.7); NEUTROPHILS % (AUTO) 84.2 % (42-75); PLATELET COUNT 85 X10'3 (140-440); RED BLOOD COUNT 2.83 X10'6 (4.70-6.10); RED CELL DISTRIBUTION WIDTH 15.6 % (11.5-14.5); WHITE BLOOD COUNT 6.7 X10'3 (4.5-11.0)
[2017-12-29 05:48] LABS: INR 1.4 INR; PROTHROMBIN TIME 13.9 SECONDS (9.0-12.0)
[2017-12-29 06:02] LABS: ALANINE AMINOTRANSFERASE 12 U/L (12-78); ALBUMIN 2.3 G/DL (3.4-5.0); ALBUMIN/GLOBULIN RATIO 0.7 (1.1-1.5); ALKALINE PHOSPHATASE 118 IU/L (46-116); ANION GAP 11 (8-16); ASPARTATE AMINO TRANSFERASE 17 U/L (10-37); BILIRUBIN,TOTAL 1.1 MG/DL (0.1-1.0); BLOOD UREA NITROGEN 13 MG/DL (7-18); BUN/CREATININE RATIO 10.7 (5.4-32.0); CALCIUM 7.3 MG/DL (8.5-10.1); CHLORIDE 109 MMOL/L (99-107); CREATININE 1.22 MG/DL (0.60-1.10); GLUCOSE 120 MG/DL (70-104); SODIUM 140 MMOL/L (135-145); TOTAL CARBON DIOXIDE 20.4 MMOL/L (24-32); TOTAL PROTEIN 5.6 G/DL (6.4-8.2); eGFR 60 ML/MIN
[2017-12-29] MEDS ORDERED: potassium Cl oral solution 20 MEQ/15 ML PO SCH (06:54)
[2017-12-29 07:08] VITALS: BP 106/61
[2017-12-29] MEDS: rifaximin 550mg tablet PO SCH (07:58)
[2017-12-29] MEDS: spironolactone 25 MG tablet PO SCH (07:58)
[2017-12-29] MEDS: CefTRIAXone 2gm/D5W 50ml 50 ML IV SCH (07:58)
[2017-12-29] MEDS: furosemide 40mg/4ml inj IV SCH (08:00)
[2017-12-29] MEDS ORDERED: potassium Cl 20 mEq SR tablet PO STA (11:05)
[2017-12-29 11:40] VITALS: BP 120/76
== END 2017-12-29 14:08 | disposition home or self-care (01) | DRG 433 ==
LOC: ER 13:18 → CANBEDREQ 16:31 → ED HOLD 17:31 → EDBEDREQ 20:58 → SUR 3N 21:36
PROVIDERS: ADMIT Family Medicine; ATTEND Family Medicine
PROC: 0W9G3ZZ Drainage of Peritoneal Cavity, Percutaneous Approach (ICD-10-PCS; principal; 2017-12-27)
PROC: 30233N1 Transfusion of Nonautologous Red Blood Cells into Peripheral Vein, Percutaneous Approach (ICD-10-PCS; 2017-12-27)
PROC: 0W9G3ZZ Drainage of Peritoneal Cavity, Percutaneous Approach (ICD-10-PCS; 2017-12-28)
DX: K70.40 Alcoholic hepatic failure without coma (principal); K76.6 Portal hypertension; L03.116 Cellulitis of left lower limb; L03.115 Cellulitis of right lower limb; D64.9 Anemia, unspecified; F10.20 Alcohol dependence, uncomplicated; I87.2 Venous insufficiency (chronic) (peripheral); K70.31 Alcoholic cirrhosis of liver with ascites; Z91.14 Patient's other noncompliance with medication regimen; F11.10 Opioid abuse, uncomplicated; Z59.0 Homelessness; Z82.49 Family history of ischemic heart disease and other diseases of the circulatory system; E87.6 Hypokalemia
CPT/HCPCS: 36415; 49083; 71045; 80053; 81001; 82140; 82272; 83605; 84145; 84484; 85025; 85610; 85730; 86885; 86900; 86901; 86920; 87040; 87070; 89051; 93005; 99291; 99292; A6212; A6213; C9113; J0696; J1940; J2001; J2270; J2543; J7030; P9016; P9047

== ENCOUNTER 2018-01-01 21:49 | Emergency (ER) | payer OTHER ==
[~2018-01-01] VITALS: Ht 175.3 cm; Wt 98.0 kg
[~2018-01-01 21:49] MED LIST changes: +ASCO500T20 PO; -CEPH500C5 PO; -EMOL200L TP; -FLUC100T9 PO; -LACT1CAP26 PO; +LACT1CAP65 PO; -PROP10TA10 PO; -RIFA550T PO; -SODI650T29 PO
[2018-01-01 23:35] LABS: BASOPHILS % (AUTO) 0 % (0-1); EOSINOPHILS # (AUTO) 0.4 X10'3 (0-0.9); EOSINOPHILS % (AUTO) 5.9 % (0-6); HEMATOCRIT 23.7 % (42.0-52.0); HEMOGLOBIN 8.1 g/dl (14.0-17.9); LYMPHOCYTES # (AUTO) 0.5 X10'3 (1.1-4.8); LYMPHOCYTES % (AUTO) 7.6 % (21-51); MEAN CORPUSCULAR HEMOGLOBIN 29.4 PG (27.0-31.0); MEAN CORPUSCULAR VOLUME 86.6 FL (78-98); MONOCYTES # (AUTO) 0.4 X10'3 (0-0.9); MONOCYTES % (AUTO) 7.1 % (2-12); NEUTROPHILS % (AUTO) 79.4 % (42-75); PLATELET COUNT 100 X10'3 (140-440); RED BLOOD COUNT 2.74 X10'6 (4.70-6.10); RED CELL DISTRIBUTION WIDTH 17.2 % (11.5-14.5); WHITE BLOOD COUNT 6.3 X10'3 (4.5-11.0)
[2018-01-01 23:47] LABS: INR 1.3 INR; PARTIAL THROMBOPLASTIN TIME 31 SECONDS (22-32)
[2018-01-01 23:50] LABS: ALANINE AMINOTRANSFERASE 22 U/L (12-78); ALBUMIN 2.1 G/DL (3.4-5.0); ALBUMIN/GLOBULIN RATIO 0.6 (1.1-1.5); ALKALINE PHOSPHATASE 153 IU/L (46-116); ANION GAP 9 (8-16); ASPARTATE AMINO TRANSFERASE 28 U/L (10-37); BILIRUBIN,TOTAL 0.7 MG/DL (0.1-1.0); BLOOD UREA NITROGEN 13 MG/DL (7-18); BUN/CREATININE RATIO 10.3 (5.4-32.0); CALCIUM 7.2 MG/DL (8.5-10.1); CHLORIDE 110 MMOL/L (99-107); CREATININE 1.26 MG/DL (0.60-1.10); GLUCOSE 118 MG/DL (70-104); POTASSIUM 3.4 MMOL/L (3.5-5.1); SODIUM 139 MMOL/L (135-145); TOTAL CARBON DIOXIDE 19.7 MMOL/L (24-32); TOTAL PROTEIN 5.8 G/DL (6.4-8.2); eGFR 58 ML/MIN
[2018-01-02 00:46] VITALS: BP 120/85
[2018-01-02 01:08] LABS: CLARITY,URINE CLEAR (Clear); COLOR,URINE YELLOW (Yellow); GLUCOSE, URINE NEGATIVE (Neg); KETONES,URINE NEGATIVE (Neg); LEUKOCYTE ESTERASE ,URINE NEGATIVE (Neg); NITRITES, URINE NEGATIVE (Neg); OCCULT BLOOD,URINE LARGE (Neg); PROTEIN,URINE 30 mg/dl (Neg); UROBILINOGEN,URINE 0.2 E.U/dL (0.2-1.0)
[2018-01-02 01:21] LABS: UA COLLECTION TYPE CLN CATCH MIDSTREAM
[2018-01-02 01:31] LABS: WBC,URINE 0-4 /HPF (0-4)
[2018-01-02 01:32] LABS: BACTERIA,URINE NONE SEEN /HPF (Neg); MUCUS STRANDS NONE SEEN /LPF (Neg); SQUAMOUS EPITHELIAL CELL,UR FEW /LPF (FEW)
[2018-01-02 08:20] LABS: OCCULT BLOOD STOOL POSITIVE (Neg)
== END 2018-01-02 00:47 | disposition home or self-care (01) ==
LOC: ER 21:51
DX: S30.812A Abrasion of penis, initial encounter (principal); K62.5 Hemorrhage of anus and rectum; D64.9 Anemia, unspecified; R18.8 Other ascites; N18.9 Chronic kidney disease, unspecified; F15.90 Other stimulant use, unspecified, uncomplicated; F11.90 Opioid use, unspecified, uncomplicated; Z79.899 Other long term (current) drug therapy; Z59.0 Homelessness; Z60.2 Problems related to living alone; X58.XXXA Exposure to other specified factors, initial encounter; Y93.89 Activity, other specified; Y92.89 Other specified places as the place of occurrence of the external cause; Y99.8 Other external cause status
CPT/HCPCS: 36415; 71045; 80053; 81001; 81003; 82140; 82272; 85025; 85610; 85730; 86885; 86900; 86901; 93005; 99285

== ENCOUNTER 2018-01-30 16:42 | Inpatient (IN) | payer MEDICAID ==
[~2018-01-30] VITALS: Ht 175.3 cm; Wt 113.0 kg
[2018-01-30] MEDS ORDERED: morphine 4 MG/ML inj SYRINge IV ONE (17:00)
[2018-01-30 18:51] LABS: BASOPHILS % (AUTO) 0.2 % (0-1); EOSINOPHILS # (AUTO) 0.1 X10'3 (0-0.9); EOSINOPHILS % (AUTO) 1.5 % (0-6); HEMATOCRIT 23.2 % (42.0-52.0); HEMOGLOBIN 7.6 g/dl (14.0-17.9); LYMPHOCYTES # (AUTO) 0.5 X10'3 (1.1-4.8); LYMPHOCYTES % (AUTO) 5.6 % (21-51); MEAN CORPUSCULAR HEMOGLOBIN 27.7 PG (27.0-31.0); MEAN CORPUSCULAR HGB CONC 32.7 % (33.0-36.5); MEAN CORPUSCULAR VOLUME 84.7 FL (78-98); MEAN PLATELET VOLUME 6.2 FL (7.4-10.4); MONOCYTES # (AUTO) 0.6 X10'3 (0-0.9); MONOCYTES % (AUTO) 6.2 % (2-12); NEUTROPHILS # (AUTO) 7.9 X10'3 (1.8-7.7); NEUTROPHILS % (AUTO) 86.5 % (42-75); PLATELET COUNT 98 X10'3 (140-440); RED BLOOD COUNT 2.74 X10'6 (4.70-6.10); RED CELL DISTRIBUTION WIDTH 17.3 % (11.5-14.5); WHITE BLOOD COUNT 9.1 X10'3 (4.5-11.0)
[2018-01-30 19:08] LABS: ALANINE AMINOTRANSFERASE 28 U/L (12-78); ALBUMIN 1.8 G/DL (3.4-5.0); ALBUMIN/GLOBULIN RATIO 0.4 (1.1-1.5); ALKALINE PHOSPHATASE 130 IU/L (46-116); ANION GAP 9 (8-16); ASPARTATE AMINO TRANSFERASE 40 U/L (10-37); BILIRUBIN,TOTAL 2.1 MG/DL (0.1-1.0); BLOOD UREA NITROGEN 18 MG/DL (7-18); BUN/CREATININE RATIO 15.4 (5.4-32.0); CALCIUM 7.8 MG/DL (8.5-10.1); CHLORIDE 109 MMOL/L (99-107); CREATININE 1.17 MG/DL (0.60-1.10); GLUCOSE 99 MG/DL (70-104); POTASSIUM 3.5 MMOL/L (3.5-5.1); SODIUM 139 MMOL/L (135-145); TOTAL CARBON DIOXIDE 21.3 MMOL/L (24-32); TOTAL PROTEIN 6.2 G/DL (6.4-8.2); eGFR 63 ML/MIN
[2018-01-30] MEDS ORDERED: lactulose 20gm/30ml cup PO ONE (19:10)
[2018-01-30] MEDS ORDERED: temazepam 15mg capsule PO PRN (21:00)
[2018-01-30] MEDS: K and/or MAG REPLACEMENT MC SCH (21:10)
[2018-01-30] MEDS ORDERED: ondansetron/PF 4mg/2ml inj IV PRN (21:10)
[2018-01-30] MEDS ORDERED: diphenhydrAMINE 25mg capsule PO PRN (21:10)
[2018-01-30] MEDS ORDERED: HYDROcodone/acetaminophen 5mg/325mg tablet PO PRN (21:10)
[2018-01-30] MEDS ORDERED: mag hydrox/Alum hydrox/simeth 30ml oral suspension PO PRN (21:10)
[2018-01-30] MEDS ORDERED: bisacodyl 10mg suppository rectal RC PRN (21:10)
[2018-01-30] MEDS ORDERED: potassium Cl 20 mEq SR tablet PO PRN (21:10)
[2018-01-30] MEDS ORDERED: acetaminophen 650mg rectal suppository RC PRN (21:10)
[2018-01-30] MEDS ORDERED: magnesium hydroxide 30ml (MOM) UD suspension PO PRN (21:10)
[2018-01-30] MEDS ORDERED: potassium Cl 40MEQ/NS 500ml 500 ML IV PRN ×2 (21:10)
[2018-01-30] MEDS ORDERED: acetaminophen 325mg tablet PO PRN (21:10)
[2018-01-30] MEDS ORDERED: morphine 2 MG/ML inj. syringe IV PRN ×2 (21:10)
[2018-01-30] MEDS ORDERED: hydrALAZINE 20mg/ml inj. IV PRN (21:15)
[2018-01-30 22:13] LABS: INR 1.5 INR; MAGNESIUM 2.1 MG/DL (1.5-2.4); PARTIAL THROMBOPLASTIN TIME 39 SECONDS (22-32); PHOSPHORUS 3.3 MG/DL (2.3-4.5); PROTHROMBIN TIME 15.2 SECONDS (9.0-12.0)
[2018-01-31] VITALS: BP 124/83
[2018-01-31 05:38] LABS: BASOPHILS % (AUTO) 0.5 % (0-1); EOSINOPHILS # (AUTO) 0.4 X10'3 (0-0.9); EOSINOPHILS % (AUTO) 4.3 % (0-6); HEMATOCRIT 22.8 % (42.0-52.0); HEMOGLOBIN 7.6 g/dl (14.0-17.9); LYMPHOCYTES # (AUTO) 0.8 X10'3 (1.1-4.8); MEAN CORPUSCULAR HEMOGLOBIN 28.2 PG (27.0-31.0); MEAN CORPUSCULAR HGB CONC 33.4 % (33.0-36.5); MEAN CORPUSCULAR VOLUME 84.5 FL (78-98); MONOCYTES # (AUTO) 0.8 X10'3 (0-0.9); MONOCYTES % (AUTO) 7.9 % (2-12); NEUTROPHILS # (AUTO) 7.8 X10'3 (1.8-7.7); NEUTROPHILS % (AUTO) 79.3 % (42-75); PLATELET COUNT 110 X10'3 (140-440); RED CELL DISTRIBUTION WIDTH 17.1 % (11.5-14.5); WHITE BLOOD COUNT 9.8 X10'3 (4.5-11.0)
[2018-01-31 06:00] VITALS: BP 110/77
[2018-01-31 06:18] LABS: ALANINE AMINOTRANSFERASE 28 U/L (12-78); ALBUMIN 1.7 G/DL (3.4-5.0); ALBUMIN/GLOBULIN RATIO 0.4 (1.1-1.5); ALKALINE PHOSPHATASE 125 IU/L (46-116); ANION GAP 11 (8-16); ASPARTATE AMINO TRANSFERASE 33 U/L (10-37); BILIRUBIN,TOTAL 1.8 MG/DL (0.1-1.0); BLOOD UREA NITROGEN 18 MG/DL (7-18); BUN/CREATININE RATIO 15.4 (5.4-32.0); CALCIUM 7.7 MG/DL (8.5-10.1); CHLORIDE 109 MMOL/L (99-107); CREATININE 1.17 MG/DL (0.60-1.10); GLUCOSE 84 MG/DL (70-104); POTASSIUM 3.4 MMOL/L (3.5-5.1); SODIUM 141 MMOL/L (135-145); TOTAL CARBON DIOXIDE 21.1 MMOL/L (24-32); TOTAL PROTEIN 6.2 G/DL (6.4-8.2); eGFR 63 ML/MIN
[2018-01-31] MEDS: pantoprazole 40 MG vial IV SCH (07:40)
[2018-01-31] MEDS: potassium Cl 20 mEq SR tablet PO PRN ×2 (07:41→13:24)
[2018-01-31] MEDS: HYDROcodone/acetaminophen 10/325mg tab PO PRN ×3 (07:41→20:40)
[2018-01-31] MEDS: docusate sod 100mg capsule PO SCH ×2 (08:00→20:00)
[2018-01-31] MEDS ORDERED: furosemide 10 MG/1 ML 10ml inj IV SCH (08:00)
[2018-01-31] MEDS: K and/or MAG REPLACEMENT MC SCH (08:00)
[2018-01-31] MEDS: rifaximin 550mg tablet PO SCH ×2 (08:24→20:37)
[2018-01-31 10:00] VITALS: BP 114/75
[2018-01-31] MEDS: potassium Cl 20 mEq SR tablet PO SCH (17:37)
[2018-01-31] MEDS: spironolactone 25 MG tablet PO SCH (17:37)
[2018-01-31 17:50] VITALS: BP 128/79
[2018-01-31] MEDS: emollient combination-Eucerin 250 ML LOTION TP SCH (20:37)
[2018-01-31] MEDS: lactulose 20gm/30ml cup PO SCH (20:39)
[2018-01-31 22:00] VITALS: BP 109/76
[2018-02-01] VITALS (8 sets, daily range): BP systolic 107–120; BP diastolic 65–77
[2018-02-01] MEDS: furosemide 10 MG/1 ML 10ml inj IV SCH ×2 (00:08→07:36)
[2018-02-01] MEDS: lactulose 20gm/30ml cup PO SCH ×4 (02:00→20:14)
[2018-02-01 06:14] LABS: BASOPHILS % (AUTO) 0.6 % (0-1); EOSINOPHILS # (AUTO) 0.5 X10'3 (0-0.9); EOSINOPHILS % (AUTO) 6.3 % (0-6); HEMATOCRIT 23.2 % (42.0-52.0); HEMOGLOBIN 7.6 g/dl (14.0-17.9); LYMPHOCYTES # (AUTO) 0.7 X10'3 (1.1-4.8); LYMPHOCYTES % (AUTO) 9.7 % (21-51); MEAN CORPUSCULAR HGB CONC 32.7 % (33.0-36.5); MEAN CORPUSCULAR VOLUME 85.8 FL (78-98); MEAN PLATELET VOLUME 6.1 FL (7.4-10.4); MONOCYTES # (AUTO) 0.6 X10'3 (0-0.9); MONOCYTES % (AUTO) 8.2 % (2-12); NEUTROPHILS # (AUTO) 5.5 X10'3 (1.8-7.7); NEUTROPHILS % (AUTO) 75.2 % (42-75); PLATELET COUNT 96 X10'3 (140-440); RED CELL DISTRIBUTION WIDTH 16.6 % (11.5-14.5); WHITE BLOOD COUNT 7.3 X10'3 (4.5-11.0)
[2018-02-01 06:37] LABS: ALANINE AMINOTRANSFERASE 26 U/L (12-78); ALBUMIN 1.7 G/DL (3.4-5.0); ALBUMIN/GLOBULIN RATIO 0.4 (1.1-1.5); ALKALINE PHOSPHATASE 131 IU/L (46-116); ANION GAP 11 (8-16); ASPARTATE AMINO TRANSFERASE 34 U/L (10-37); BILIRUBIN,TOTAL 1.3 MG/DL (0.1-1.0); BLOOD UREA NITROGEN 19 MG/DL (7-18); BUN/CREATININE RATIO 13.6 (5.4-32.0); CALCIUM 7.5 MG/DL (8.5-10.1); CHLORIDE 108 MMOL/L (99-107); GLUCOSE 115 MG/DL (70-104); POTASSIUM 3.2 MMOL/L (3.5-5.1); SODIUM 141 MMOL/L (135-145); TOTAL CARBON DIOXIDE 22.2 MMOL/L (24-32); TOTAL PROTEIN 6.5 G/DL (6.4-8.2); eGFR 51 ML/MIN
[2018-02-01] MEDS: docusate sod 100mg capsule PO SCH ×2 (07:21→20:00)
[2018-02-01] MEDS: potassium Cl 20 mEq SR tablet PO SCH ×3 (07:36→20:14)
[2018-02-01] MEDS: rifaximin 550mg tablet PO SCH ×2 (07:36→20:15)
[2018-02-01] MEDS: pantoprazole 40 MG vial IV SCH (07:36)
[2018-02-01] MEDS: spironolactone 25 MG tablet PO SCH ×2 (07:36→20:15)
[2018-02-01] MEDS: emollient combination-Eucerin 250 ML LOTION TP SCH ×2 (07:42→20:15)
[2018-02-01] MEDS ORDERED: LIDOcaine 0.5% (5mg/ml) 50ml vial ONE (09:20)
[2018-02-01] MEDS ORDERED: albumin (human) 25% 100 ML IV solution IV ONE (09:35)
[2018-02-01] MEDS: furosemide 20 MG/2 ML vial IV SCH ×2 (16:33→23:36)
[2018-02-01] MEDS: HYDROcodone/acetaminophen 10/325mg tab PO PRN ×2 (16:39→23:36)
[2018-02-02] VITALS (11 sets, daily range): BP systolic 117–140; BP diastolic 75–85
[2018-02-02] MEDS: lactulose 20gm/30ml cup PO SCH ×4 (02:00→20:00)
[2018-02-02] MEDS: HYDROcodone/acetaminophen 10/325mg tab PO PRN ×2 (05:22→10:57)
[2018-02-02 06:27] LABS: BASOPHILS % (AUTO) 0.1 % (0-1); EOSINOPHILS # (AUTO) 0.2 X10'3 (0-0.9); EOSINOPHILS % (AUTO) 2.7 % (0-6); HEMATOCRIT 25.7 % (42.0-52.0); HEMOGLOBIN 8.4 g/dl (14.0-17.9); LYMPHOCYTES # (AUTO) 0.6 X10'3 (1.1-4.8); LYMPHOCYTES % (AUTO) 7.9 % (21-51); MEAN CORPUSCULAR HGB CONC 32.6 % (33.0-36.5); MEAN PLATELET VOLUME 5.9 FL (7.4-10.4); MONOCYTES # (AUTO) 0.5 X10'3 (0-0.9); MONOCYTES % (AUTO) 6.8 % (2-12); NEUTROPHILS % (AUTO) 82.5 % (42-75); PLATELET COUNT 103 X10'3 (140-440); RED BLOOD COUNT 2.98 X10'6 (4.70-6.10); RED CELL DISTRIBUTION WIDTH 16.5 % (11.5-14.5); WHITE BLOOD COUNT 7.3 X10'3 (4.5-11.0)
[2018-02-02 06:51] LABS: ALANINE AMINOTRANSFERASE 28 U/L (12-78); ALBUMIN 2.3 G/DL (3.4-5.0); ALBUMIN/GLOBULIN RATIO 0.6 (1.1-1.5); ALKALINE PHOSPHATASE 108 IU/L (46-116); ANION GAP 8 (8-16); ASPARTATE AMINO TRANSFERASE 24 U/L (10-37); BILIRUBIN,TOTAL 1.6 MG/DL (0.1-1.0); BLOOD UREA NITROGEN 16 MG/DL (7-18); BUN/CREATININE RATIO 10.6 (5.4-32.0); CALCIUM 7.8 MG/DL (8.5-10.1); CHLORIDE 106 MMOL/L (99-107); CREATININE 1.51 MG/DL (0.60-1.10); GLUCOSE 102 MG/DL (70-104); POTASSIUM 3.2 MMOL/L (3.5-5.1); SODIUM 140 MMOL/L (135-145); TOTAL CARBON DIOXIDE 25.9 MMOL/L (24-32); TOTAL PROTEIN 6.3 G/DL (6.4-8.2); eGFR 47 ML/MIN
[2018-02-02] MEDS: potassium Cl 20 mEq SR tablet PO SCH ×3 (07:42→20:32)
[2018-02-02] MEDS: pantoprazole 40mg Tablet.DR PO SCH (07:43)
[2018-02-02] MEDS: spironolactone 25 MG tablet PO SCH ×2 (07:44→20:00)
[2018-02-02] MEDS: docusate sod 100mg capsule PO SCH ×2 (07:45→20:00)
[2018-02-02] MEDS: rifaximin 550mg tablet PO SCH ×2 (07:45→20:00)
[2018-02-02] MEDS: furosemide 20 MG/2 ML vial IV SCH ×2 (07:46→15:46)
[2018-02-02] MEDS: emollient combination-Eucerin 250 ML LOTION TP SCH ×2 (08:00→20:00)
[2018-02-02] MEDS: metoclopramide 5 mg/ml inj IV PRN ×2 (11:00→23:49)
[2018-02-02] MEDS ORDERED: potassium Cl 20 mEq SR tablet PO PRN ×2 (11:35)
[2018-02-02] MEDS ORDERED: potassium Cl 40MEQ/250ML bag 250 ML IV PRN ×2 (11:35)
[2018-02-02] MEDS ORDERED: magnesium Cl slow-release 64mg tablet PO PRN (11:35)
[2018-02-02] MEDS ORDERED: potassium Cl 40MEQ/NS 500ml 500 ML IV PRN ×2 (11:35)
[2018-02-02] MEDS ORDERED: LIDOcaine 1% 30ml vial 5 ML in potassium Cl 40MEQ/NS 500ml 500 ML IV ONE (12:05)
[2018-02-02] MEDS ORDERED: aspirin 81mg tab.chew PO ONE (23:20)
[2018-02-02 23:49] LABS: BASOPHILS % (AUTO) 0 % (0-1); EOSINOPHILS # (AUTO) 0.3 X10'3 (0-0.9); EOSINOPHILS % (AUTO) 1.2 % (0-6); HEMATOCRIT 29.3 % (42.0-52.0); HEMOGLOBIN 9.6 g/dl (14.0-17.9); LYMPHOCYTES # (AUTO) 0.3 X10'3 (1.1-4.8); LYMPHOCYTES % (AUTO) 1.5 % (21-51); MEAN CORPUSCULAR HEMOGLOBIN 28.3 PG (27.0-31.0); MEAN CORPUSCULAR HGB CONC 32.8 % (33.0-36.5); MEAN CORPUSCULAR VOLUME 86.1 FL (78-98); MEAN PLATELET VOLUME 6.2 FL (7.4-10.4); MONOCYTES # (AUTO) 0.6 X10'3 (0-0.9); MONOCYTES % (AUTO) 2.5 % (2-12); NEUTROPHILS # (AUTO) 20.7 X10'3 (1.8-7.7); NEUTROPHILS % (AUTO) 94.8 % (42-75); PLATELET COUNT 108 X10'3 (140-440); RED CELL DISTRIBUTION WIDTH 16.5 % (11.5-14.5); WHITE BLOOD COUNT 21.9 X10'3 (4.5-11.0)
[2018-02-03] VITALS (9 sets, daily range): BP systolic 109–146; BP diastolic 51–91
[2018-02-03 00:13] LABS: ALBUMIN 2.3 G/DL (3.4-5.0); ANION GAP 12 (8-16); BLOOD UREA NITROGEN 19 MG/DL (7-18); BUN/CREATININE RATIO 11.7 (5.4-32.0); CHLORIDE 106 MMOL/L (99-107); CREATININE 1.62 MG/DL (0.60-1.10); GLUCOSE 102 MG/DL (70-104); MAGNESIUM 1.7 MG/DL (1.5-2.4); POTASSIUM 3.9 MMOL/L (3.5-5.1); SODIUM 142 MMOL/L (135-145); TOTAL CARBON DIOXIDE 24.5 MMOL/L (24-32); TROPONIN I < 0.04 NG/ML (0.0-0.05); eGFR 43 ML/MIN
[2018-02-03 00:34] LABS: TOTAL CELLS COUNTED 100
[2018-02-03 00:35] LABS: ANISOCYTOSIS 1+; PLATELET ESTIMATE DECREASED; POIKILOCYTOSIS FEW; POLYCHROMASIA FEW
[2018-02-03 00:45] LABS: PARTIAL THROMBOPLASTIN TIME 35 SECONDS (22-32)
[2018-02-03] MEDS: lactulose 20gm/30ml cup PO SCH ×4 (02:00→22:03)
[2018-02-03 06:07] LABS: BASOPHILS % (AUTO) 0 % (0-1); EOSINOPHILS # (AUTO) 0.2 X10'3 (0-0.9); EOSINOPHILS % (AUTO) 0.8 % (0-6); HEMATOCRIT 28.7 % (42.0-52.0); HEMOGLOBIN 9.4 g/dl (14.0-17.9); LYMPHOCYTES # (AUTO) 0.5 X10'3 (1.1-4.8); LYMPHOCYTES % (AUTO) 2.7 % (21-51); MEAN CORPUSCULAR HEMOGLOBIN 28.2 PG (27.0-31.0); MEAN CORPUSCULAR HGB CONC 32.7 % (33.0-36.5); MEAN CORPUSCULAR VOLUME 86.1 FL (78-98); MEAN PLATELET VOLUME 6.3 FL (7.4-10.4); MONOCYTES # (AUTO) 0.7 X10'3 (0-0.9); MONOCYTES % (AUTO) 3.4 % (2-12); NEUTROPHILS # (AUTO) 19.1 X10'3 (1.8-7.7); NEUTROPHILS % (AUTO) 93.1 % (42-75); PLATELET COUNT 104 X10'3 (140-440); RED BLOOD COUNT 3.34 X10'6 (4.70-6.10); RED CELL DISTRIBUTION WIDTH 17.1 % (11.5-14.5); WHITE BLOOD COUNT 20.5 X10'3 (4.5-11.0)
[2018-02-03 06:39] LABS: ALANINE AMINOTRANSFERASE 24 U/L (12-78); ALBUMIN 2.1 G/DL (3.4-5.0); ALBUMIN/GLOBULIN RATIO 0.5 (1.1-1.5); ALKALINE PHOSPHATASE 106 IU/L (46-116); ANION GAP 10 (8-16); ASPARTATE AMINO TRANSFERASE 23 U/L (10-37); BLOOD UREA NITROGEN 20 MG/DL (7-18); BUN/CREATININE RATIO 11.9 (5.4-32.0); CALCIUM 7.8 MG/DL (8.5-10.1); CHLORIDE 106 MMOL/L (99-107); CREATININE 1.68 MG/DL (0.60-1.10); GLUCOSE 103 MG/DL (70-104); MAGNESIUM 1.7 MG/DL (1.5-2.4); POTASSIUM 4.2 MMOL/L (3.5-5.1); SODIUM 141 MMOL/L (135-145); TOTAL CARBON DIOXIDE 24.7 MMOL/L (24-32); TOTAL PROTEIN 6.2 G/DL (6.4-8.2); eGFR 42 ML/MIN
[2018-02-03] MEDS: potassium Cl 20 mEq SR tablet PO SCH ×4 (08:00→22:03)
[2018-02-03] MEDS: K and/or MAG REPLACEMENT MC SCH (08:00)
[2018-02-03] MEDS: emollient combination-Eucerin 250 ML LOTION TP SCH ×2 (09:00→20:00)
[2018-02-03] MEDS: docusate sod 100mg capsule PO SCH ×2 (09:04→20:00)
[2018-02-03] MEDS: furosemide 20 MG/2 ML vial IV SCH ×3 (09:04→16:53)
[2018-02-03] MEDS: spironolactone 25 MG tablet PO SCH ×2 (09:05→22:03)
[2018-02-03] MEDS: pantoprazole 40mg Tablet.DR PO SCH (09:05)
[2018-02-03] MEDS: rifaximin 550mg tablet PO SCH ×2 (09:06→22:03)
[2018-02-03] MEDS: HYDROcodone/acetaminophen 10/325mg tab PO PRN ×3 (09:17→22:03)
[2018-02-03] MEDS: metoclopramide 5 mg/ml inj IV PRN (09:18)
[2018-02-03] MEDS: CefTRIAXone 2gm/D5W 50ml 50 ML IV SCH (13:20)
[2018-02-04] MEDS: furosemide 20 MG/2 ML vial IV SCH ×2 (00:37→07:36)
[2018-02-04] MEDS: lactulose 20gm/30ml cup PO SCH ×4 (03:05→21:15)
[2018-02-04] MEDS: HYDROcodone/acetaminophen 10/325mg tab PO PRN ×3 (03:06→21:16)
[2018-02-04 06:21] LABS: BASOPHILS % (AUTO) 0.2 % (0-1); EOSINOPHILS % (AUTO) 0.2 % (0-6); HEMATOCRIT 27.9 % (42.0-52.0); HEMOGLOBIN 9.1 g/dl (14.0-17.9); LYMPHOCYTES # (AUTO) 0.6 X10'3 (1.1-4.8); LYMPHOCYTES % (AUTO) 5.3 % (21-51); MEAN CORPUSCULAR HEMOGLOBIN 28.4 PG (27.0-31.0); MEAN CORPUSCULAR HGB CONC 32.8 % (33.0-36.5); MEAN CORPUSCULAR VOLUME 86.6 FL (78-98); MEAN PLATELET VOLUME 6.3 FL (7.4-10.4); MONOCYTES # (AUTO) 0.7 X10'3 (0-0.9); MONOCYTES % (AUTO) 6.4 % (2-12); NEUTROPHILS # (AUTO) 9.5 X10'3 (1.8-7.7); NEUTROPHILS % (AUTO) 87.9 % (42-75); PLATELET COUNT 96 X10'3 (140-440); RED BLOOD COUNT 3.22 X10'6 (4.70-6.10); RED CELL DISTRIBUTION WIDTH 18.4 % (11.5-14.5); WHITE BLOOD COUNT 10.8 X10'3 (4.5-11.0)
[2018-02-04 06:46] VITALS: BP 118/72
[2018-02-04 07:10] LABS: ALANINE AMINOTRANSFERASE 17 U/L (12-78); ALBUMIN/GLOBULIN RATIO 0.5 (1.1-1.5); ALKALINE PHOSPHATASE 107 IU/L (46-116); ANION GAP 12 (8-16); ASPARTATE AMINO TRANSFERASE 21 U/L (10-37); BILIRUBIN,TOTAL 1.3 MG/DL (0.1-1.0); BLOOD UREA NITROGEN 31 MG/DL (7-18); BUN/CREATININE RATIO 16.8 (5.4-32.0); CALCIUM 7.8 MG/DL (8.5-10.1); CHLORIDE 105 MMOL/L (99-107); CREATININE 1.84 MG/DL (0.60-1.10); GLUCOSE 98 MG/DL (70-104); MAGNESIUM 1.9 MG/DL (1.5-2.4); POTASSIUM 4.3 MMOL/L (3.5-5.1); SODIUM 140 MMOL/L (135-145); TOTAL CARBON DIOXIDE 23.3 MMOL/L (24-32); TOTAL PROTEIN 6.3 G/DL (6.4-8.2); eGFR 37 ML/MIN
[2018-02-04] MEDS: pantoprazole 40mg Tablet.DR PO SCH (07:30)
[2018-02-04] MEDS: CefTRIAXone 2gm/D5W 50ml 50 ML IV SCH (07:36)
[2018-02-04] MEDS: spironolactone 25 MG tablet PO SCH ×2 (07:36→21:16)
[2018-02-04] MEDS: rifaximin 550mg tablet PO SCH ×2 (07:37→21:16)
[2018-02-04] MEDS: potassium Cl 20 mEq SR tablet PO SCH ×3 (07:38→21:20)
[2018-02-04] MEDS: lactobacillus rhamnosus 10,000 MMU CELLS/CAPSULE PO SCH ×2 (07:41→21:16)
[2018-02-04] MEDS: docusate sod 100mg capsule PO SCH (08:00)
[2018-02-04] MEDS: emollient combination-Eucerin 250 ML LOTION TP SCH ×2 (08:00→20:00)
[2018-02-04] MEDS: K and/or MAG REPLACEMENT MC SCH (08:00)
[2018-02-04 09:55] VITALS: BP 122/72
[2018-02-04] MEDS: metoclopramide 5 mg/ml inj IV PRN (12:20)
[2018-02-04] MEDS: metoclopramide 5 mg/ml inj IV SCH (17:45)
[2018-02-04 18:00] VITALS: BP 105/69
[2018-02-04] MEDS: diatr meglu/diatrizoate 30ml oral sol.-(3 dose) bottle PO SCH (21:18)
[2018-02-04 22:00] VITALS: BP 116/77
[2018-02-05] MEDS: lactulose 20gm/30ml cup PO SCH ×3 (03:29→13:48)
[2018-02-05] MEDS: HYDROcodone/acetaminophen 10/325mg tab PO PRN (03:29)
[2018-02-05 04:40] LABS: ALANINE AMINOTRANSFERASE 16 U/L (12-78); ALBUMIN/GLOBULIN RATIO 0.5 (1.1-1.5); ALKALINE PHOSPHATASE 117 IU/L (46-116); ANION GAP 8 (8-16); ASPARTATE AMINO TRANSFERASE 19 U/L (10-37); BILIRUBIN,TOTAL 1.3 MG/DL (0.1-1.0); BLOOD UREA NITROGEN 36 MG/DL (7-18); BUN/CREATININE RATIO 21.2 (5.4-32.0); CALCIUM 7.5 MG/DL (8.5-10.1); CHLORIDE 105 MMOL/L (99-107); GLUCOSE 90 MG/DL (70-104); MAGNESIUM 1.9 MG/DL (1.5-2.4); POTASSIUM 3.6 MMOL/L (3.5-5.1); SODIUM 141 MMOL/L (135-145); TOTAL CARBON DIOXIDE 27.7 MMOL/L (24-32); TOTAL PROTEIN 6.4 G/DL (6.4-8.2); eGFR 41 ML/MIN
[2018-02-05 05:16] LABS: BASOPHILS % (AUTO) 0 % (0-1); EOSINOPHILS # (AUTO) 0.2 X10'3 (0-0.9); EOSINOPHILS % (AUTO) 2.1 % (0-6); HEMOGLOBIN 9.2 g/dl (14.0-17.9); LYMPHOCYTES # (AUTO) 0.5 X10'3 (1.1-4.8); MEAN CORPUSCULAR HEMOGLOBIN 28.6 PG (27.0-31.0); MEAN CORPUSCULAR HGB CONC 32.7 % (33.0-36.5); MEAN CORPUSCULAR VOLUME 87.3 FL (78-98); MEAN PLATELET VOLUME 6.3 FL (7.4-10.4); MONOCYTES # (AUTO) 0.4 X10'3 (0-0.9); MONOCYTES % (AUTO) 4.8 % (2-12); NEUTROPHILS # (AUTO) 7.9 X10'3 (1.8-7.7); NEUTROPHILS % (AUTO) 87.1 % (42-75); PLATELET COUNT 95 X10'3 (140-440); RED BLOOD COUNT 3.21 X10'6 (4.70-6.10); RED CELL DISTRIBUTION WIDTH 18.2 % (11.5-14.5); WHITE BLOOD COUNT 9.1 X10'3 (4.5-11.0)
[2018-02-05] MEDS: lactobacillus rhamnosus 10,000 MMU CELLS/CAPSULE PO SCH (08:00)
[2018-02-05] MEDS: potassium Cl 20 mEq SR tablet PO SCH ×2 (08:00→13:00)
[2018-02-05] MEDS: K and/or MAG REPLACEMENT MC SCH (08:00)
[2018-02-05] MEDS: emollient combination-Eucerin 250 ML LOTION TP SCH (08:00)
[2018-02-05] MEDS: diatr meglu/diatrizoate 30ml oral sol.-(3 dose) bottle PO SCH ×2 (08:04→09:36)
[2018-02-05] MEDS: spironolactone 25 MG tablet PO SCH (08:05)
[2018-02-05] MEDS: pantoprazole 40mg Tablet.DR PO SCH (08:05)
[2018-02-05] MEDS: rifaximin 550mg tablet PO SCH (08:06)
[2018-02-05] MEDS: metoclopramide 5 mg/ml inj IV SCH ×3 (08:06→17:00)
[2018-02-05] MEDS: CefTRIAXone 2gm/D5W 50ml 50 ML IV SCH (08:12)
[2018-02-05 10:00] VITALS: BP 116/73
== END 2018-02-05 17:30 | disposition left against medical advice (07) | DRG 342 ==
LOC: ER 16:42 → ED HOLD 21:07 → ORTHO 4S 23:36
PROVIDERS: ADMIT Family Medicine; ATTEND Internal Medicine
PROC: 0W9G3ZZ Drainage of Peritoneal Cavity, Percutaneous Approach (ICD-10-PCS; principal; 2018-02-01)
PROC: 0D9670Z Drainage of Stomach with Drainage Device, Via Natural or Artificial Opening (ICD-10-PCS; 2018-02-05)
DX: S42.211A Unspecified displaced fracture of surgical neck of right humerus, initial encounter for closed fracture (principal); N17.9 Acute kidney failure, unspecified; K56.600 Partial intestinal obstruction, unspecified as to cause; D69.6 Thrombocytopenia, unspecified; E88.09 Other disorders of plasma-protein metabolism, not elsewhere classified; K70.31 Alcoholic cirrhosis of liver with ascites; K72.90 Hepatic failure, unspecified without coma; D64.9 Anemia, unspecified; N18.9 Chronic kidney disease, unspecified; W01.0XXA Fall on same level from slipping, tripping and stumbling without subsequent striking against object, initial encounter; I87.2 Venous insufficiency (chronic) (peripheral); K42.9 Umbilical hernia without obstruction or gangrene; I12.9 Hypertensive chronic kidney disease with stage 1 through stage 4 chronic kidney disease, or unspecified chronic kidney disease; Z53.21 Procedure and treatment not carried out due to patient leaving prior to being seen by health care provider; F15.10 Other stimulant abuse, uncomplicated; F11.90 Opioid use, unspecified, uncomplicated; M19.019 Primary osteoarthritis, unspecified shoulder; E87.6 Hypokalemia; D72.829 Elevated white blood cell count, unspecified; R11.14 Bilious vomiting; Y93.89 Activity, other specified; Y92.098 Other place in other non-institutional residence as the place of occurrence of the external cause; Z71.51 Drug abuse counseling and surveillance of drug abuser; Y99.8 Other external cause status; Z82.49 Family history of ischemic heart disease and other diseases of the circulatory system; Z59.0 Homelessness; Z87.891 Personal history of nicotine dependence; Z95.1 Presence of aortocoronary bypass graft
CPT/HCPCS: 36415; 49083; 71045; 73030; 73200; 74176; 80048; 80053; 82140; 82948; 83605; 83735; 83880; 84100; 84484; 85025; 85610; 85730; 86885; 86900; 86901; 87040; 87070; 93005; 96374; 97110; 97116; 97162; 99285; A4315; A4565; A4649; A6212; A6250; A6258; C9113; J0696; J1940; J2001; J2270; J2405; J2765; J3480; J3490; J7030; P9047; Q9963

== ENCOUNTER 2018-02-11 00:06 | Emergency (ER) | payer MEDICAID ==
[~2018-02-11] VITALS: Ht 175.3 cm; Wt 113.0 kg
[2018-02-11] MEDS ORDERED: TRAM50TA2 PO (00:39)
[2018-02-11] MEDS ORDERED: traMADol 50MG tablet PO ONE (00:40)
[2018-02-11 01:38] VITALS: BP 158/88
== END 2018-02-11 02:18 | disposition home or self-care (01) ==
LOC: ER 00:06
DX: S42.291A Other displaced fracture of upper end of right humerus, initial encounter for closed fracture (principal); S42.391A Other fracture of shaft of right humerus, initial encounter for closed fracture; S50.01XA Contusion of right elbow, initial encounter; K70.31 Alcoholic cirrhosis of liver with ascites; N18.9 Chronic kidney disease, unspecified; F15.90 Other stimulant use, unspecified, uncomplicated; F11.90 Opioid use, unspecified, uncomplicated; Z60.2 Problems related to living alone; Z59.0 Homelessness; W01.0XXA Fall on same level from slipping, tripping and stumbling without subsequent striking against object, initial encounter; Y93.89 Activity, other specified; Y92.89 Other specified places as the place of occurrence of the external cause; Y99.8 Other external cause status
CPT/HCPCS: 99284; A4565

== ENCOUNTER 2018-02-20 10:50 | Inpatient (IN) | payer MEDICAID ==
[~2018-02-20] VITALS: Ht 175.3 cm; Wt 102.0 kg
[~2018-02-20 10:50] MED LIST changes: +TRAM50TA2 PO
[2018-02-20 11:29] LABS: BASOPHILS % (AUTO) 0.8 % (0-1); EOSINOPHILS # (AUTO) 0.2 X10'3 (0-0.9); EOSINOPHILS % (AUTO) 3.9 % (0-6); HEMATOCRIT 22.8 % (42.0-52.0); HEMOGLOBIN 7.7 g/dl (14.0-17.9); LYMPHOCYTES # (AUTO) 0.4 X10'3 (1.1-4.8); MEAN CORPUSCULAR HEMOGLOBIN 29.8 PG (27.0-31.0); MEAN CORPUSCULAR HGB CONC 33.7 % (33.0-36.5); MEAN CORPUSCULAR VOLUME 88.6 FL (78-98); MEAN PLATELET VOLUME 6.3 FL (7.4-10.4); MONOCYTES # (AUTO) 0.3 X10'3 (0-0.9); MONOCYTES % (AUTO) 8.8 % (2-12); NEUTROPHILS % (AUTO) 77.5 % (42-75); PLATELET COUNT 88 X10'3 (140-440); RED BLOOD COUNT 2.57 X10'6 (4.70-6.10); WHITE BLOOD COUNT 3.9 X10'3 (4.5-11.0)
[2018-02-20] MEDS ORDERED: dextrose ORAL solution 15 GM/59 ML bottle PO ONE (11:35)
[2018-02-20] MEDS ORDERED: ipratropium/albuterol 3ml nebule NEB ONE (11:35)
[2018-02-20 11:38] LABS: INR 1.3 INR; PARTIAL THROMBOPLASTIN TIME 35 SECONDS (22-32); PROTHROMBIN TIME 13.4 SECONDS (9.0-12.0)
[2018-02-20 11:42] LABS: ALANINE AMINOTRANSFERASE 29 U/L (12-78); ALBUMIN 1.7 G/DL (3.4-5.0); ALBUMIN/GLOBULIN RATIO 0.3 (1.1-1.5); ALKALINE PHOSPHATASE 172 IU/L (46-116); ANION GAP 10 (8-16); ASPARTATE AMINO TRANSFERASE 34 U/L (10-37); BILIRUBIN,TOTAL 1.1 MG/DL (0.1-1.0); BLOOD UREA NITROGEN 15 MG/DL (7-18); BUN/CREATININE RATIO 14.9 (5.4-32.0); CALCIUM 7.5 MG/DL (8.5-10.1); CHLORIDE 108 MMOL/L (99-107); CREATININE 1.01 MG/DL (0.60-1.10); GLUCOSE 89 MG/DL (70-104); POTASSIUM 3.6 MMOL/L (3.5-5.1); SODIUM 139 MMOL/L (135-145); TOTAL CARBON DIOXIDE 21.2 MMOL/L (24-32); TOTAL PROTEIN 6.7 G/DL (6.4-8.2); eGFR 75 ML/MIN
[2018-02-20 11:47] LABS: ETHANOL < 0.010 GM/DL (0.0-0.010); MAGNESIUM 1.6 MG/DL (1.5-2.4); PHOSPHORUS 3.2 MG/DL (2.3-4.5)
[2018-02-20 11:49] LABS: LACTIC SEPSIS 0.8 MMOL/L (0.4-2.0)
[2018-02-20] MEDS ORDERED: normal saline 1000ml 1,000 ML IV ONE (12:55)
[2018-02-20 14:42] LABS: CLARITY,URINE SLIGHTLY CLOUDY (Clear); COLOR,URINE YELLOW (Yellow); GLUCOSE, URINE NEGATIVE (Neg); KETONES,URINE NEGATIVE (Neg); LEUKOCYTE ESTERASE ,URINE NEGATIVE (Neg); NITRITES, URINE NEGATIVE (Neg); OCCULT BLOOD,URINE MODERATE (Neg); PROTEIN,URINE 30 mg/dl (Neg); URINE AMPHETAMINE SCREEN POSITIVE (Neg); URINE BARBITUATE SCREEN NEGATIVE (Neg); URINE BENZODIAZEPINES SCREEN POSITIVE (Neg); URINE CANNABINOID SCREEN NEGATIVE (Neg); URINE COCAINE SCREEN NEGATIVE (Neg); URINE METHADONE SCREEN NEGATIVE (Neg); URINE OPIATE SCREEN NEGATIVE (Neg); URINE PHENCYCLIDINE SCREEN NEGATIVE (Neg); UROBILINOGEN,URINE 0.2 E.U/dL (0.2-1.0)
[2018-02-20 14:59] LABS: BACTERIA,URINE FEW /HPF (Neg); CELLULAR CAST 0-4 /LPF (NEGATIVE); COARSE GRANULAR CAST 0-3 /LPF (NEGATIVE); MUCUS STRANDS FEW /LPF (Neg); SQUAMOUS EPITHELIAL CELL,UR FEW /LPF (FEW); UA COLLECTION TYPE CLN CATCH MIDSTREAM
[2018-02-20] MEDS ORDERED: ondansetron/PF 4mg/2ml inj IV PRN (15:00)
[2018-02-20] MEDS ORDERED: bisacodyl 10mg suppository rectal RC PRN (15:00)
[2018-02-20] MEDS ORDERED: potassium Cl 40MEQ/NS 500ml 500 ML IV PRN ×2 (15:00)
[2018-02-20] MEDS ORDERED: magnesium 1gm/100ml D5W IVPB 100 ML IV PRN (15:00)
[2018-02-20] MEDS ORDERED: magnesium 4gm in 100ml NS 100 ML IV PRN (15:00)
[2018-02-20] MEDS ORDERED: mag hydrox/Alum hydrox/simeth 30ml oral suspension PO PRN (15:00)
[2018-02-20] MEDS ORDERED: acetaminophen 325mg tablet PO PRN (15:00)
[2018-02-20] MEDS ORDERED: potassium Cl 20 mEq SR tablet PO PRN ×2 (15:00)
[2018-02-20] MEDS ORDERED: TRAM50TA2 PO (15:21)
[2018-02-20] MEDS: normal saline 1000ml 1,000 ML IV SCH ×2 (15:59→17:25)
[2018-02-20 17:06] VITALS: BP 125/90
[2018-02-20] MEDS: lactulose 20gm/30ml cup PO SCH ×3 (17:23→23:06)
[2018-02-20] MEDS ORDERED: pneumococcal 23-VAL P-sac vacc 25 mcg/0.5ml vial IMVAC ONE (17:50)
[2018-02-20 20:00] VITALS: BP 127/80
[2018-02-21] VITALS (19 sets, daily range): BP systolic 100–141; BP diastolic 61–107
[2018-02-21] MEDS: normal saline 1000ml 1,000 ML IV SCH (03:47)
[2018-02-21 05:45] LABS: BASOPHILS % (AUTO) 0.5 % (0-1); EOSINOPHILS # (AUTO) 0.1 X10'3 (0-0.9); EOSINOPHILS % (AUTO) 3.2 % (0-6); LYMPHOCYTES # (AUTO) 0.3 X10'3 (1.1-4.8); LYMPHOCYTES % (AUTO) 7.2 % (21-51); MEAN CORPUSCULAR HEMOGLOBIN 30.1 PG (27.0-31.0); MEAN CORPUSCULAR HGB CONC 33.8 % (33.0-36.5); MEAN PLATELET VOLUME 6.5 FL (7.4-10.4); MONOCYTES # (AUTO) 0.4 X10'3 (0-0.9); NEUTROPHILS # (AUTO) 3.7 X10'3 (1.8-7.7); NEUTROPHILS % (AUTO) 81.1 % (42-75); PLATELET COUNT 81 X10'3 (140-440); RED BLOOD COUNT 2.32 X10'6 (4.70-6.10); RED CELL DISTRIBUTION WIDTH 18.1 % (11.5-14.5); WHITE BLOOD COUNT 4.5 X10'3 (4.5-11.0)
[2018-02-21 05:56] LABS: HEMATOCRIT 20.7 % (42.0-52.0)
[2018-02-21 06:17] LABS: ALANINE AMINOTRANSFERASE 27 U/L (12-78); ALBUMIN 1.5 G/DL (3.4-5.0); ALBUMIN/GLOBULIN RATIO 0.3 (1.1-1.5); ALKALINE PHOSPHATASE 156 IU/L (46-116); ANION GAP 9 (8-16); ASPARTATE AMINO TRANSFERASE 30 U/L (10-37); BLOOD UREA NITROGEN 13 MG/DL (7-18); BUN/CREATININE RATIO 12.9 (5.4-32.0); CHLORIDE 109 MMOL/L (99-107); CREATININE 1.01 MG/DL (0.60-1.10); GLUCOSE 94 MG/DL (70-104); MAGNESIUM 1.6 MG/DL (1.5-2.4); POTASSIUM 3.7 MMOL/L (3.5-5.1); SODIUM 139 MMOL/L (135-145); TOTAL CARBON DIOXIDE 20.7 MMOL/L (24-32); TOTAL PROTEIN 6.1 G/DL (6.4-8.2); eGFR 75 ML/MIN
[2018-02-21] MEDS: K and/or MAG REPLACEMENT MC SCH (07:58)
[2018-02-21] MEDS: lactulose 20gm/30ml cup PO SCH ×4 (08:01→19:57)
[2018-02-21] MEDS ORDERED: fentaNYL/PF 50MCG/1 ML 2ML syringe ONE (08:17)
[2018-02-21] MEDS ORDERED: LIDOcaine Viscous 15ml cup ONE (08:17)
[2018-02-21] MEDS ORDERED: MIDAZolam 5mg/5ml vial ONE (08:17)
[2018-02-21] MEDS ORDERED: octreotide inj. 1,250 MCG in normal saline 250ml IV soln 243.75 ML IV SCH (10:20)
[2018-02-21] MEDS ORDERED: octreotide 100mcg/1 ml ampule IV ONE (10:20)
[2018-02-21] MEDS ORDERED: acetaminophen 325mg tablet PO PRN (10:41)
[2018-02-21] MEDS ORDERED: pantoprazole 40MG/NS 100ML BAG 100 ML IV SCH (11:00)
[2018-02-21] MEDS: pantoprazole 40 MG vial IV SCH ×2 (11:27→19:56)
[2018-02-21] MEDS ORDERED: HYDROcodone/acetaminophen 5mg/325mg tablet PO PRN (15:50)
[2018-02-21] MEDS: furosemide 40mg/4ml inj IV SCH ×2 (17:04→19:55)
[2018-02-21] MEDS: lactobacillus rhamnosus 10,000 MMU CELLS/CAPSULE PO SCH (19:55)
[2018-02-21] MEDS: rifaximin 550mg tablet PO SCH (19:55)
[2018-02-21] MEDS: HYDROcodone/acetaminophen 10/325mg tab PO PRN (19:56)
[2018-02-22] VITALS (12 sets, daily range): BP systolic 106–172; BP diastolic 60–85
[2018-02-22] MEDS: lactulose 20gm/30ml cup PO SCH ×6 (00:17→21:38)
[2018-02-22] MEDS: HYDROcodone/acetaminophen 10/325mg tab PO PRN ×3 (00:36→21:38)
[2018-02-22 06:24] LABS: BASOPHILS % (AUTO) 0.4 % (0-1); EOSINOPHILS # (AUTO) 0.2 X10'3 (0-0.9); EOSINOPHILS % (AUTO) 3.2 % (0-6); HEMATOCRIT 26.6 % (42.0-52.0); LYMPHOCYTES # (AUTO) 0.4 X10'3 (1.1-4.8); MEAN CORPUSCULAR HEMOGLOBIN 29.8 PG (27.0-31.0); MEAN CORPUSCULAR HGB CONC 33.9 % (33.0-36.5); MEAN CORPUSCULAR VOLUME 87.9 FL (78-98); MEAN PLATELET VOLUME 6.4 FL (7.4-10.4); MONOCYTES # (AUTO) 0.5 X10'3 (0-0.9); MONOCYTES % (AUTO) 6.6 % (2-12); NEUTROPHILS # (AUTO) 5.8 X10'3 (1.8-7.7); NEUTROPHILS % (AUTO) 83.8 % (42-75); PLATELET COUNT 81 X10'3 (140-440); RED BLOOD COUNT 3.03 X10'6 (4.70-6.10); RED CELL DISTRIBUTION WIDTH 17.4 % (11.5-14.5); WHITE BLOOD COUNT 6.9 X10'3 (4.5-11.0)
[2018-02-22 06:47] LABS: ALANINE AMINOTRANSFERASE 23 U/L (12-78); ALBUMIN 1.5 G/DL (3.4-5.0); ALBUMIN/GLOBULIN RATIO 0.3 (1.1-1.5); ALKALINE PHOSPHATASE 153 IU/L (46-116); ANION GAP 7 (8-16); ASPARTATE AMINO TRANSFERASE 23 U/L (10-37); BILIRUBIN,TOTAL 1.9 MG/DL (0.1-1.0); BLOOD UREA NITROGEN 13 MG/DL (7-18); BUN/CREATININE RATIO 11.2 (5.4-32.0); CALCIUM 7.2 MG/DL (8.5-10.1); CHLORIDE 109 MMOL/L (99-107); CREATININE 1.16 MG/DL (0.60-1.10); GLUCOSE 93 MG/DL (70-104); MAGNESIUM 1.5 MG/DL (1.5-2.4); PHOSPHORUS 2.9 MG/DL (2.3-4.5); POTASSIUM 3.5 MMOL/L (3.5-5.1); SODIUM 139 MMOL/L (135-145); TOTAL CARBON DIOXIDE 23.5 MMOL/L (24-32); TOTAL PROTEIN 6.5 G/DL (6.4-8.2); eGFR 64 ML/MIN
[2018-02-22] MEDS ORDERED: furosemide 20MG tablet PO SCH (08:00)
[2018-02-22] MEDS: K and/or MAG REPLACEMENT MC SCH (08:00)
[2018-02-22] MEDS ORDERED: pantoprazole 40mg Tablet.DR PO SCH (08:00)
[2018-02-22] MEDS: pantoprazole 40 MG vial IV SCH ×2 (08:03→21:37)
[2018-02-22] MEDS: furosemide 40mg/4ml inj IV SCH ×2 (08:03→21:47)
[2018-02-22] MEDS: folic acid 0.4mg tablet PO SCH (08:05)
[2018-02-22] MEDS: lactobacillus rhamnosus 10,000 MMU CELLS/CAPSULE PO SCH ×2 (08:05→21:38)
[2018-02-22] MEDS: spironolactone 25 MG tablet PO SCH (08:05)
[2018-02-22] MEDS: ferrous sulfate 325mg tablet PO SCH (08:05)
[2018-02-22] MEDS: ascorbic acid 500mg tablet PO SCH (08:06)
[2018-02-22] MEDS: thiamine 100mg tablet PO SCH (08:06)
[2018-02-22] MEDS: rifaximin 550mg tablet PO SCH ×2 (08:06→21:37)
[2018-02-22] MEDS ORDERED: albumin (human) 25% 100ml IV 100 ML IV ONE ×2 (12:45)
[2018-02-22 15:00] LABS: BFAPPEAR CLEAR; BFCOLOR YELLOW; BFVOLUME 48 ML
[2018-02-22 15:22] LABS: BF RBC COUNT 830 /CU MM; BF WBC COUNT 255 /CU MM (0-1000); LYMPHOCYTES,BODY FLUID 67 %; MONOCYTES,BODY FLUID 27 %; NEUTROPHILS,BODY FLUID 6 %
[2018-02-23] VITALS: BP 105/73
[2018-02-23] MEDS: lactulose 20gm/30ml cup PO SCH ×6 (00:29→20:22)
[2018-02-23 06:28] LABS: BASOPHILS % (AUTO) 0.2 % (0-1); EOSINOPHILS # (AUTO) 0.3 X10'3 (0-0.9); EOSINOPHILS % (AUTO) 4.3 % (0-6); HEMATOCRIT 28.6 % (42.0-52.0); HEMOGLOBIN 9.8 g/dl (14.0-17.9); LYMPHOCYTES # (AUTO) 0.3 X10'3 (1.1-4.8); LYMPHOCYTES % (AUTO) 4.9 % (21-51); MEAN CORPUSCULAR HEMOGLOBIN 29.9 PG (27.0-31.0); MEAN CORPUSCULAR HGB CONC 34.3 % (33.0-36.5); MEAN CORPUSCULAR VOLUME 87.1 FL (78-98); MEAN PLATELET VOLUME 6.3 FL (7.4-10.4); MONOCYTES # (AUTO) 0.4 X10'3 (0-0.9); MONOCYTES % (AUTO) 5.4 % (2-12); NEUTROPHILS # (AUTO) 5.9 X10'3 (1.8-7.7); NEUTROPHILS % (AUTO) 85.2 % (42-75); PLATELET COUNT 76 X10'3 (140-440); RED BLOOD COUNT 3.28 X10'6 (4.70-6.10); WHITE BLOOD COUNT 6.9 X10'3 (4.5-11.0)
[2018-02-23 06:39] LABS: ALANINE AMINOTRANSFERASE 14 U/L (12-78); ALBUMIN 1.9 G/DL (3.4-5.0); ALBUMIN/GLOBULIN RATIO 0.4 (1.1-1.5); ALKALINE PHOSPHATASE 149 IU/L (46-116); ANION GAP 8 (8-16); ASPARTATE AMINO TRANSFERASE 18 U/L (10-37); BILIRUBIN,TOTAL 1.5 MG/DL (0.1-1.0); BLOOD UREA NITROGEN 13 MG/DL (7-18); BUN/CREATININE RATIO 10.2 (5.4-32.0); CALCIUM 7.3 MG/DL (8.5-10.1); CHLORIDE 106 MMOL/L (99-107); CREATININE 1.27 MG/DL (0.60-1.10); GLUCOSE 107 MG/DL (70-104); MAGNESIUM 1.4 MG/DL (1.5-2.4); PHOSPHORUS 2.7 MG/DL (2.3-4.5); POTASSIUM 3.1 MMOL/L (3.5-5.1); SODIUM 140 MMOL/L (135-145); TOTAL CARBON DIOXIDE 26.5 MMOL/L (24-32); TOTAL PROTEIN 6.6 G/DL (6.4-8.2); eGFR 57 ML/MIN
[2018-02-23 07:28] VITALS: BP 111/70
[2018-02-23] MEDS: furosemide 40mg/4ml inj IV SCH ×2 (08:00→19:47)
[2018-02-23] MEDS: K and/or MAG REPLACEMENT MC SCH (08:00)
[2018-02-23] MEDS: pantoprazole 40 MG vial IV SCH ×2 (09:49→20:21)
[2018-02-23] MEDS: folic acid 0.4mg tablet PO SCH (09:50)
[2018-02-23] MEDS: ferrous sulfate 325mg tablet PO SCH (09:51)
[2018-02-23] MEDS: spironolactone 25 MG tablet PO SCH (09:51)
[2018-02-23] MEDS: lactobacillus rhamnosus 10,000 MMU CELLS/CAPSULE PO SCH ×2 (09:51→20:21)
[2018-02-23] MEDS: thiamine 100mg tablet PO SCH (09:51)
[2018-02-23] MEDS: HYDROcodone/acetaminophen 10/325mg tab PO PRN ×3 (09:51→21:26)
[2018-02-23] MEDS: rifaximin 550mg tablet PO SCH ×2 (09:51→21:25)
[2018-02-23] MEDS: ascorbic acid 500mg tablet PO SCH (09:52)
[2018-02-23] MEDS ORDERED: magnesium Cl slow-release 64mg tablet PO PRN ×2 (10:45→15:10)
[2018-02-23 11:43] VITALS: BP 101/65
[2018-02-23] MEDS ORDERED: potassium Cl 20 mEq SR tablet PO PRN (15:10)
[2018-02-23] MEDS ORDERED: potassium Cl 40MEQ/NS 500ml 500 ML IV PRN ×2 (15:10)
[2018-02-23] MEDS ORDERED: magnesium 4gm in 100ml NS 100 ML IV PRN (15:10)
[2018-02-23] MEDS: potassium Cl 20 mEq SR tablet PO PRN ×2 (15:10→20:21)
[2018-02-23 18:00] VITALS: BP 101/66
[2018-02-24] VITALS: BP 101/64
[2018-02-24] MEDS: lactulose 20gm/30ml cup PO SCH ×6 (00:06→20:17)
[2018-02-24] MEDS: potassium Cl 20 mEq SR tablet PO PRN (00:35)
[2018-02-24 06:52] LABS: BASOPHILS % (AUTO) 0.5 % (0-1); EOSINOPHILS # (AUTO) 0.3 X10'3 (0-0.9); EOSINOPHILS % (AUTO) 6.3 % (0-6); HEMATOCRIT 25.5 % (42.0-52.0); HEMOGLOBIN 8.9 g/dl (14.0-17.9); LYMPHOCYTES # (AUTO) 0.5 X10'3 (1.1-4.8); LYMPHOCYTES % (AUTO) 10.6 % (21-51); MEAN CORPUSCULAR HEMOGLOBIN 30.9 PG (27.0-31.0); MEAN CORPUSCULAR HGB CONC 34.7 % (33.0-36.5); MEAN CORPUSCULAR VOLUME 88.9 FL (78-98); MEAN PLATELET VOLUME 6.6 FL (7.4-10.4); MONOCYTES # (AUTO) 0.4 X10'3 (0-0.9); MONOCYTES % (AUTO) 9.2 % (2-12); NEUTROPHILS # (AUTO) 3.7 X10'3 (1.8-7.7); NEUTROPHILS % (AUTO) 73.4 % (42-75); PLATELET COUNT 72 X10'3 (140-440); RED BLOOD COUNT 2.87 X10'6 (4.70-6.10); RED CELL DISTRIBUTION WIDTH 16.9 % (11.5-14.5); WHITE BLOOD COUNT 4.9 X10'3 (4.5-11.0)
[2018-02-24 07:43] VITALS: BP 100/67
[2018-02-24] MEDS: pantoprazole 40 MG vial IV SCH ×2 (08:00→20:17)
[2018-02-24] MEDS: folic acid 0.4mg tablet PO SCH (08:00)
[2018-02-24] MEDS: K and/or MAG REPLACEMENT MC SCH (08:00)
[2018-02-24] MEDS: spironolactone 25 MG tablet PO SCH (08:00)
[2018-02-24] MEDS: ascorbic acid 500mg tablet PO SCH (08:00)
[2018-02-24] MEDS: thiamine 100mg tablet PO SCH (08:00)
[2018-02-24] MEDS: ferrous sulfate 325mg tablet PO SCH (08:00)
[2018-02-24] MEDS: HYDROcodone/acetaminophen 10/325mg tab PO PRN (08:01)
[2018-02-24] MEDS: lactobacillus rhamnosus 10,000 MMU CELLS/CAPSULE PO SCH ×2 (08:01→20:17)
[2018-02-24] MEDS: furosemide 40mg/4ml inj IV SCH ×2 (08:01→20:00)
[2018-02-24] MEDS: rifaximin 550mg tablet PO SCH ×2 (08:01→20:17)
[2018-02-24 11:38] LABS: ALANINE AMINOTRANSFERASE 16 U/L (12-78); ALBUMIN 1.8 G/DL (3.4-5.0); ALBUMIN/GLOBULIN RATIO 0.4 (1.1-1.5); ALKALINE PHOSPHATASE 156 IU/L (46-116); ANION GAP 6 (8-16); ASPARTATE AMINO TRANSFERASE 19 U/L (10-37); BILIRUBIN,TOTAL 1.1 MG/DL (0.1-1.0); BLOOD UREA NITROGEN 12 MG/DL (7-18); BUN/CREATININE RATIO 9.7 (5.4-32.0); CALCIUM 7.3 MG/DL (8.5-10.1); CHLORIDE 105 MMOL/L (99-107); CREATININE 1.24 MG/DL (0.60-1.10); GLUCOSE 142 MG/DL (70-104); MAGNESIUM 1.5 MG/DL (1.5-2.4); PHOSPHORUS 2.4 MG/DL (2.3-4.5); SODIUM 137 MMOL/L (135-145); TOTAL CARBON DIOXIDE 25.9 MMOL/L (24-32); TOTAL PROTEIN 6.5 G/DL (6.4-8.2); eGFR 59 ML/MIN
[2018-02-24 12:06] VITALS: BP 107/70
[2018-02-24 18:00] VITALS: BP 113/70
[2018-02-25] VITALS: BP 115/69
[2018-02-25] MEDS: lactulose 20gm/30ml cup PO SCH ×6 (00:13→20:00)
[2018-02-25] MEDS: HYDROcodone/acetaminophen 10/325mg tab PO PRN ×2 (02:22→19:06)
[2018-02-25 06:30] LABS: BASOPHILS % (AUTO) 0.4 % (0-1); EOSINOPHILS # (AUTO) 0.4 X10'3 (0-0.9); EOSINOPHILS % (AUTO) 6.4 % (0-6); LYMPHOCYTES # (AUTO) 0.4 X10'3 (1.1-4.8); LYMPHOCYTES % (AUTO) 7.3 % (21-51); MEAN CORPUSCULAR HEMOGLOBIN 30.4 PG (27.0-31.0); MEAN CORPUSCULAR HGB CONC 34.4 % (33.0-36.5); MEAN CORPUSCULAR VOLUME 88.2 FL (78-98); MEAN PLATELET VOLUME 6.4 FL (7.4-10.4); MONOCYTES # (AUTO) 0.4 X10'3 (0-0.9); MONOCYTES % (AUTO) 6.9 % (2-12); NEUTROPHILS # (AUTO) 4.8 X10'3 (1.8-7.7); PLATELET COUNT 93 X10'3 (140-440); RED BLOOD COUNT 3.29 X10'6 (4.70-6.10); RED CELL DISTRIBUTION WIDTH 16.9 % (11.5-14.5)
[2018-02-25 07:00] LABS: ALANINE AMINOTRANSFERASE 17 U/L (12-78); ALBUMIN 1.9 G/DL (3.4-5.0); ALBUMIN/GLOBULIN RATIO 0.4 (1.1-1.5); ALKALINE PHOSPHATASE 172 IU/L (46-116); ANION GAP 7 (8-16); ASPARTATE AMINO TRANSFERASE 20 U/L (10-37); BLOOD UREA NITROGEN 12 MG/DL (7-18); CALCIUM 7.7 MG/DL (8.5-10.1); CHLORIDE 104 MMOL/L (99-107); CREATININE 1.33 MG/DL (0.60-1.10); GLUCOSE 104 MG/DL (70-104); MAGNESIUM 1.7 MG/DL (1.5-2.4); PHOSPHORUS 2.7 MG/DL (2.3-4.5); POTASSIUM 3.7 MMOL/L (3.5-5.1); SODIUM 137 MMOL/L (135-145); TOTAL CARBON DIOXIDE 26.5 MMOL/L (24-32); eGFR 54 ML/MIN
[2018-02-25 07:30] VITALS: BP 106/74
[2018-02-25] MEDS: K and/or MAG REPLACEMENT MC SCH (08:00)
[2018-02-25] MEDS: furosemide 40mg/4ml inj IV SCH ×2 (08:00→20:00)
[2018-02-25] MEDS: spironolactone 25 MG tablet PO SCH (08:28)
[2018-02-25] MEDS: folic acid 0.4mg tablet PO SCH (08:28)
[2018-02-25] MEDS: thiamine 100mg tablet PO SCH (08:28)
[2018-02-25] MEDS: ferrous sulfate 325mg tablet PO SCH (08:28)
[2018-02-25] MEDS: lactobacillus rhamnosus 10,000 MMU CELLS/CAPSULE PO SCH ×2 (08:29→20:09)
[2018-02-25] MEDS: rifaximin 550mg tablet PO SCH ×2 (08:29→20:09)
[2018-02-25] MEDS: pantoprazole 40 MG vial IV SCH (08:30)
[2018-02-25 12:07] VITALS: BP 113/75
[2018-02-25 18:00] VITALS: BP 129/66
[2018-02-25] MEDS: pantoprazole 40mg Tablet.DR PO SCH (20:09)
[2018-02-26] VITALS: BP 122/73
[2018-02-26] MEDS: lactulose 20gm/30ml cup PO SCH ×6 (00:01→20:00)
[2018-02-26] MEDS: HYDROcodone/acetaminophen 10/325mg tab PO PRN ×3 (01:13→20:07)
[2018-02-26 06:18] LABS: MAGNESIUM 1.7 MG/DL (1.5-2.4); PHOSPHORUS 2.4 MG/DL (2.3-4.5); POTASSIUM 3.5 MMOL/L (3.5-5.1)
[2018-02-26 07:59] VITALS: BP 91/55
[2018-02-26] MEDS: furosemide 40mg/4ml inj IV SCH (08:00)
[2018-02-26] MEDS: spironolactone 25 MG tablet PO SCH (08:00)
[2018-02-26] MEDS: K and/or MAG REPLACEMENT MC SCH (08:00)
[2018-02-26] MEDS: folic acid 0.4mg tablet PO SCH (08:07)
[2018-02-26] MEDS: pantoprazole 40mg Tablet.DR PO SCH ×2 (08:07→20:01)
[2018-02-26] MEDS: ferrous sulfate 325mg tablet PO SCH (08:07)
[2018-02-26] MEDS: lactobacillus rhamnosus 10,000 MMU CELLS/CAPSULE PO SCH ×2 (08:07→20:01)
[2018-02-26] MEDS: thiamine 100mg tablet PO SCH (08:07)
[2018-02-26] MEDS: rifaximin 550mg tablet PO SCH ×2 (08:08→20:01)
[2018-02-26] MEDS ORDERED: furosemide 40mg/4ml inj IV SCH ×2 (14:49→15:00)
[2018-02-26 15:09] VITALS: BP 112/80
[2018-02-26 20:00] VITALS: BP 107/66
[2018-02-26] MEDS: furosemide 40mg tablet PO SCH (20:00)
[2018-02-27] VITALS: BP 94/64
[2018-02-27] MEDS: lactulose 20gm/30ml cup PO SCH ×9 (00:33→22:26)
[2018-02-27 00:45] VITALS: BP 105/70
[2018-02-27] MEDS: HYDROcodone/acetaminophen 10/325mg tab PO PRN ×3 (00:52→19:28)
[2018-02-27] MEDS: K and/or MAG REPLACEMENT MC SCH (06:39)
[2018-02-27] MEDS: pantoprazole 40mg Tablet.DR PO SCH ×2 (07:30→19:29)
[2018-02-27] MEDS: furosemide 40mg tablet PO SCH ×2 (07:33→19:29)
[2018-02-27] MEDS: ascorbic acid 500mg tablet PO SCH (07:34)
[2018-02-27] MEDS: folic acid 0.4mg tablet PO SCH (07:35)
[2018-02-27] MEDS: thiamine 100mg tablet PO SCH (07:35)
[2018-02-27] MEDS: lactobacillus rhamnosus 10,000 MMU CELLS/CAPSULE PO SCH ×2 (07:35→19:28)
[2018-02-27] MEDS: spironolactone 25 MG tablet PO SCH (07:36)
[2018-02-27] MEDS: ferrous sulfate 325mg tablet PO SCH (07:37)
[2018-02-27] MEDS: rifaximin 550mg tablet PO SCH ×2 (07:37→19:28)
[2018-02-27 08:35] VITALS: BP 106/63
[2018-02-27 11:16] VITALS: BP 113/63
[2018-02-27 20:00] VITALS: BP 109/66
[2018-02-28] VITALS: BP 143/86
[2018-02-28] MEDS: lactulose 20gm/30ml cup PO SCH ×8 (00:03→14:32)
[2018-02-28] MEDS: HYDROcodone/acetaminophen 10/325mg tab PO PRN ×2 (01:18→05:30)
[2018-02-28 05:39] LABS: BASOPHILS % (AUTO) 0.5 % (0-1); EOSINOPHILS # (AUTO) 0.3 X10'3 (0-0.9); EOSINOPHILS % (AUTO) 6.3 % (0-6); HEMATOCRIT 26.8 % (42.0-52.0); HEMOGLOBIN 8.8 g/dl (14.0-17.9); LYMPHOCYTES # (AUTO) 0.3 X10'3 (1.1-4.8); MEAN CORPUSCULAR HGB CONC 32.8 % (33.0-36.5); MEAN CORPUSCULAR VOLUME 88.3 FL (78-98); MEAN PLATELET VOLUME 6.1 FL (7.4-10.4); MONOCYTES # (AUTO) 0.5 X10'3 (0-0.9); MONOCYTES % (AUTO) 10.6 % (2-12); NEUTROPHILS # (AUTO) 3.3 X10'3 (1.8-7.7); NEUTROPHILS % (AUTO) 75.6 % (42-75); PLATELET COUNT 98 X10'3 (140-440); RED BLOOD COUNT 3.04 X10'6 (4.70-6.10); WHITE BLOOD COUNT 4.4 X10'3 (4.5-11.0)
[2018-02-28 06:00] LABS: ALANINE AMINOTRANSFERASE 19 U/L (12-78); ALBUMIN 1.7 G/DL (3.4-5.0); ALBUMIN/GLOBULIN RATIO 0.4 (1.1-1.5); ALKALINE PHOSPHATASE 211 IU/L (46-116); ANION GAP 6 (8-16); ASPARTATE AMINO TRANSFERASE 30 U/L (10-37); BILIRUBIN,TOTAL 0.7 MG/DL (0.1-1.0); BLOOD UREA NITROGEN 15 MG/DL (7-18); BUN/CREATININE RATIO 10.7 (5.4-32.0); CALCIUM 7.4 MG/DL (8.5-10.1); CHLORIDE 102 MMOL/L (99-107); GLUCOSE 102 MG/DL (70-104); MAGNESIUM 1.6 MG/DL (1.5-2.4); PHOSPHORUS 3.6 MG/DL (2.3-4.5); POTASSIUM 3.4 MMOL/L (3.5-5.1); SODIUM 136 MMOL/L (135-145); TOTAL CARBON DIOXIDE 27.7 MMOL/L (24-32); TOTAL PROTEIN 6.5 G/DL (6.4-8.2); eGFR 51 ML/MIN
[2018-02-28 06:34] LABS: ANISOCYTOSIS 2+; PLATELET ESTIMATE DECREASED
[2018-02-28] MEDS: K and/or MAG REPLACEMENT MC SCH (07:14)
[2018-02-28] MEDS: lactobacillus rhamnosus 10,000 MMU CELLS/CAPSULE PO SCH (07:21)
[2018-02-28] MEDS: spironolactone 25 MG tablet PO SCH (07:21)
[2018-02-28] MEDS: ferrous sulfate 325mg tablet PO SCH (07:22)
[2018-02-28] MEDS: rifaximin 550mg tablet PO SCH (07:23)
[2018-02-28] MEDS: furosemide 40mg tablet PO SCH (07:23)
[2018-02-28] MEDS: folic acid 0.4mg tablet PO SCH (07:23)
[2018-02-28] MEDS: thiamine 100mg tablet PO SCH (07:23)
[2018-02-28] MEDS: pantoprazole 40mg Tablet.DR PO SCH (07:23)
[2018-02-28 07:32] VITALS: BP 141/72
[2018-02-28] MEDS ORDERED: RIFA550T PO (11:01)
[2018-02-28 11:18] VITALS: BP 89/50
[2018-02-28] MEDS ORDERED: potassium Cl 20 mEq SR tablet PO STA (13:50)
== END 2018-02-28 15:42 | disposition home health service (06) | DRG 280 ==
LOC: ER 10:51 → ED HOLD 14:58 → SUR 3N 16:59
PROVIDERS: ADMIT Family Medicine; ATTEND Family Medicine
PROC: 3E02340 Introduction of Influenza Vaccine into Muscle, Percutaneous Approach (ICD-10-PCS; 2018-02-20)
PROC: 0DJ08ZZ Inspection of Upper Intestinal Tract, Via Natural or Artificial Opening Endoscopic (ICD-10-PCS; principal; 2018-02-21)
PROC: 30233N1 Transfusion of Nonautologous Red Blood Cells into Peripheral Vein, Percutaneous Approach (ICD-10-PCS; 2018-02-21)
PROC: 0W9G3ZZ Drainage of Peritoneal Cavity, Percutaneous Approach (ICD-10-PCS; 2018-02-22)
DX: K70.40 Alcoholic hepatic failure without coma (principal); K70.31 Alcoholic cirrhosis of liver with ascites; E43 Unspecified severe protein-calorie malnutrition; I85.00 Esophageal varices without bleeding; K76.6 Portal hypertension; F10.20 Alcohol dependence, uncomplicated; D50.0 Iron deficiency anemia secondary to blood loss (chronic); E87.6 Hypokalemia; F15.10 Other stimulant abuse, uncomplicated; K42.9 Umbilical hernia without obstruction or gangrene; Z66 Do not resuscitate; F17.200 Nicotine dependence, unspecified, uncomplicated; K22.8 Other specified diseases of esophagus; K29.70 Gastritis, unspecified, without bleeding; Z60.2 Problems related to living alone; F11.90 Opioid use, unspecified, uncomplicated; N18.9 Chronic kidney disease, unspecified; Z82.49 Family history of ischemic heart disease and other diseases of the circulatory system; Z91.19 Patient's noncompliance with other medical treatment and regimen; Z59.0 Homelessness; Z23 Encounter for immunization; Z79.899 Other long term (current) drug therapy; Z68.33 Body mass index [BMI] 33.0-33.9, adult; Z71.41 Alcohol abuse counseling and surveillance of alcoholic; Z71.51 Drug abuse counseling and surveillance of drug abuser
CPT/HCPCS: 36415; 49083; 71045; 80053; 80305; 80320; 81001; 82140; 82948; 83605; 83735; 84100; 84132; 84484; 85025; 85610; 85730; 86885; 86900; 86901; 86920; 87040; 87070; 87088; 89051; 93005; 94640; 94760; 96360; 97116; 97162; 99152; 99285; A4620; C9113; J1940; J2250; J2354; J3010; J7030; P9016; P9047; Q2037

== ENCOUNTER 2018-03-10 18:40 | Emergency (ER) | payer MEDICAID ==
[~2018-03-10] VITALS: Ht 175.3 cm; Wt 95.1 kg
[~2018-03-10 18:40] MED LIST changes: +RIFA550T PO
[2018-03-10 19:46] LABS: CLARITY,URINE CLEAR (Clear); COLOR,URINE YELLOW (Yellow); GLUCOSE, URINE NEGATIVE (Neg); KETONES,URINE NEGATIVE (Neg); LEUKOCYTE ESTERASE ,URINE NEGATIVE (Neg); NITRITES, URINE NEGATIVE (Neg); OCCULT BLOOD,URINE MODERATE (Neg); PROTEIN,URINE 30 mg/dl (Neg); UROBILINOGEN,URINE 0.2 E.U/dL (0.2-1.0)
[2018-03-10 19:55] LABS: UA COLLECTION TYPE CLN CATCH MIDSTREAM
[2018-03-10 19:56] LABS: BACTERIA,URINE FEW /HPF (Neg); HYALINE CASTS 0-3 /LPF (NEGATIVE); RBC,URINE 0-2 /HPF (0-2); SQUAMOUS EPITHELIAL CELL,UR FEW /LPF (FEW); WBC,URINE 0-4 /HPF (0-4)
[2018-03-10 20:16] LABS: ALANINE AMINOTRANSFERASE 41 U/L (12-78); ALBUMIN 1.9 G/DL (3.4-5.0); ALBUMIN/GLOBULIN RATIO 0.4 (1.1-1.5); ALKALINE PHOSPHATASE 320 IU/L (46-116); ANION GAP 11 (8-16); ASPARTATE AMINO TRANSFERASE 37 U/L (10-37); BILIRUBIN,TOTAL 0.9 MG/DL (0.1-1.0); BLOOD UREA NITROGEN 11 MG/DL (7-18); BUN/CREATININE RATIO 10.6 (5.4-32.0); CALCIUM 7.4 MG/DL (8.5-10.1); CHLORIDE 109 MMOL/L (99-107); CREATININE 1.04 MG/DL (0.60-1.10); ETHANOL < 0.010 GM/DL (0.0-0.010); MAGNESIUM 1.8 MG/DL (1.5-2.4); PHOSPHORUS 2.6 MG/DL (2.3-4.5); POTASSIUM 3.1 MMOL/L (3.5-5.1); SODIUM 140 MMOL/L (135-145); TOTAL CARBON DIOXIDE 20.3 MMOL/L (24-32); TOTAL PROTEIN 7.1 G/DL (6.4-8.2); eGFR 72 ML/MIN
[2018-03-10 20:20] LABS: GLUCOSE 90 MG/DL (70-104)
[2018-03-10 20:24] LABS: BASOPHILS % (AUTO) 0.4 % (0-1); EOSINOPHILS # (AUTO) 0.3 X10'3 (0-0.9); EOSINOPHILS % (AUTO) 4.8 % (0-6); HEMOGLOBIN 9.2 g/dl (14.0-17.9); LYMPHOCYTES # (AUTO) 0.4 X10'3 (1.1-4.8); MEAN CORPUSCULAR HGB CONC 32.8 % (33.0-36.5); MEAN CORPUSCULAR VOLUME 88.6 FL (78-98); MONOCYTES # (AUTO) 0.5 X10'3 (0-0.9); MONOCYTES % (AUTO) 7.9 % (2-12); NEUTROPHILS # (AUTO) 5.1 X10'3 (1.8-7.7); NEUTROPHILS % (AUTO) 80.9 % (42-75); PLATELET COUNT 143 X10'3 (140-440); RED BLOOD COUNT 3.17 X10'6 (4.70-6.10); RED CELL DISTRIBUTION WIDTH 18.4 % (11.5-14.5); WHITE BLOOD COUNT 6.3 X10'3 (4.5-11.0)
[2018-03-10 20:26] LABS: URINE AMPHETAMINE SCREEN POSITIVE (Neg); URINE BARBITUATE SCREEN NEGATIVE (Neg); URINE BENZODIAZEPINES SCREEN NEGATIVE (Neg); URINE CANNABINOID SCREEN NEGATIVE (Neg); URINE COCAINE SCREEN NEGATIVE (Neg); URINE METHADONE SCREEN NEGATIVE (Neg); URINE OPIATE SCREEN NEGATIVE (Neg); URINE PHENCYCLIDINE SCREEN NEGATIVE (Neg)
[2018-03-10 21:04] LABS: INR 1.2 INR; PARTIAL THROMBOPLASTIN TIME 31 SECONDS (22-32); PROTHROMBIN TIME 12.4 SECONDS (9.0-12.0)
[2018-03-10 21:39] VITALS: BP 124/76
== END 2018-03-10 21:41 | disposition home or self-care (01) ==
LOC: ER 18:41
DX: K72.90 Hepatic failure, unspecified without coma (principal); R18.8 Other ascites; R41.0 Disorientation, unspecified; F15.10 Other stimulant abuse, uncomplicated; F11.10 Opioid abuse, uncomplicated; N18.9 Chronic kidney disease, unspecified; Z59.0 Homelessness; Z79.899 Other long term (current) drug therapy
CPT/HCPCS: 36415; 80053; 80305; 80320; 81001; 82140; 83735; 84100; 85025; 85610; 85730; 99284

== ENCOUNTER 2018-04-02 15:03 | Emergency (ER) | payer MEDICAID ==
[~2018-04-02] VITALS: Ht 175.3 cm; Wt 95.1 kg
[2018-04-02 15:04] VITALS: BP 130/81
[2018-04-02] MEDS ORDERED: LIDOcaine 1.5% w/epinephrine 1:200,000 5ml ampul IJ ONE (15:35)
[2018-04-02] MEDS ORDERED: LIDOcaine 1% w/epiNEPHrine 1:200,000 30ml vial IJ ONE (15:40)
[2018-04-02 15:44] LABS: BASOPHILS % (AUTO) 0 % (0-1); EOSINOPHILS % (AUTO) 0.1 % (0-6); HEMATOCRIT 23.5 % (42.0-52.0); HEMOGLOBIN 7.7 g/dl (14.0-17.9); LYMPHOCYTES # (AUTO) 0.3 X10'3 (1.1-4.8); LYMPHOCYTES % (AUTO) 2.5 % (21-51); MEAN CORPUSCULAR HEMOGLOBIN 29.2 PG (27.0-31.0); MEAN CORPUSCULAR HGB CONC 32.6 % (33.0-36.5); MEAN CORPUSCULAR VOLUME 89.6 FL (78-98); MEAN PLATELET VOLUME 6.2 FL (7.4-10.4); MONOCYTES # (AUTO) 0.8 X10'3 (0-0.9); MONOCYTES % (AUTO) 6.8 % (2-12); NEUTROPHILS # (AUTO) 10.2 X10'3 (1.8-7.7); NEUTROPHILS % (AUTO) 90.6 % (42-75); PLATELET COUNT 104 X10'3 (140-440); RED BLOOD COUNT 2.63 X10'6 (4.70-6.10); RED CELL DISTRIBUTION WIDTH 18.5 % (11.5-14.5); WHITE BLOOD COUNT 11.3 X10'3 (4.5-11.0)
[2018-04-02 15:57] LABS: INR 1.4 INR; PARTIAL THROMBOPLASTIN TIME 38 SECONDS (22-32); PROTHROMBIN TIME 14.3 SECONDS (9.0-12.0)
[2018-04-02 16:01] LABS: ALANINE AMINOTRANSFERASE 21 U/L (12-78); ALBUMIN 1.6 G/DL (3.4-5.0); ALBUMIN/GLOBULIN RATIO 0.3 (1.1-1.5); ALKALINE PHOSPHATASE 151 IU/L (46-116); ANION GAP 11 (8-16); ASPARTATE AMINO TRANSFERASE 28 U/L (10-37); BLOOD UREA NITROGEN 22 MG/DL (7-18); BUN/CREATININE RATIO 17.1 (5.4-32.0); CALCIUM 7.4 MG/DL (8.5-10.1); CHLORIDE 107 MMOL/L (99-107); CREATININE 1.29 MG/DL (0.60-1.10); GLUCOSE 106 MG/DL (70-104); POTASSIUM 3.4 MMOL/L (3.5-5.1); SODIUM 137 MMOL/L (135-145); TOTAL CARBON DIOXIDE 19.4 MMOL/L (24-32); TOTAL PROTEIN 6.4 G/DL (6.4-8.2); eGFR 56 ML/MIN
[2018-04-02] MEDS ORDERED: albuterol 2.5 MG/3 ML nebule NEB ONE (16:10)
== END 2018-04-02 18:57 | disposition home or self-care (01) ==
LOC: ER 15:03
DX: K70.31 Alcoholic cirrhosis of liver with ascites (principal); R06.02 Shortness of breath; R16.1 Splenomegaly, not elsewhere classified; N18.9 Chronic kidney disease, unspecified; F15.90 Other stimulant use, unspecified, uncomplicated; F11.90 Opioid use, unspecified, uncomplicated; Z79.899 Other long term (current) drug therapy; Z60.2 Problems related to living alone; Z59.0 Homelessness
CPT/HCPCS: 36415; 49083; 71045; 80053; 83605; 83880; 84145; 84484; 85025; 85610; 85730; 87040; 87077; 87186; 93005; 94640; 94760; 99285; J3490

== ENCOUNTER 2018-04-04 19:04 | Inpatient (IN) | payer MEDICAID, MEDICARE ==
[~2018-04-04] VITALS: Ht 175.3 cm; Wt 95.0 kg
[2018-04-04] MEDS ORDERED: morphine 4 MG/ML inj SYRINge IV ONE (20:15)
[2018-04-04 20:27] LABS: BASOPHILS % (AUTO) 0 % (0-1); EOSINOPHILS # (AUTO) 0.1 X10'3 (0-0.9); EOSINOPHILS % (AUTO) 0.9 % (0-6); HEMATOCRIT 26.6 % (42.0-52.0); HEMOGLOBIN 8.6 g/dl (14.0-17.9); LYMPHOCYTES # (AUTO) 0.4 X10'3 (1.1-4.8); LYMPHOCYTES % (AUTO) 2.7 % (21-51); MEAN CORPUSCULAR HEMOGLOBIN 29.1 PG (27.0-31.0); MEAN CORPUSCULAR HGB CONC 32.2 % (33.0-36.5); MEAN CORPUSCULAR VOLUME 90.5 FL (78-98); MEAN PLATELET VOLUME 6.7 FL (7.4-10.4); MONOCYTES # (AUTO) 1.1 X10'3 (0-0.9); MONOCYTES % (AUTO) 7.1 % (2-12); NEUTROPHILS # (AUTO) 13.7 X10'3 (1.8-7.7); NEUTROPHILS % (AUTO) 89.3 % (42-75); PLATELET COUNT 153 X10'3 (140-440); RED BLOOD COUNT 2.94 X10'6 (4.70-6.10); RED CELL DISTRIBUTION WIDTH 18.8 % (11.5-14.5); WHITE BLOOD COUNT 15.4 X10'3 (4.5-11.0)
[2018-04-04 20:43] LABS: ALANINE AMINOTRANSFERASE 17 U/L (12-78); ALBUMIN 1.5 G/DL (3.4-5.0); ALBUMIN/GLOBULIN RATIO 0.3 (1.1-1.5); ALKALINE PHOSPHATASE 143 IU/L (46-116); ANION GAP 10 (8-16); ASPARTATE AMINO TRANSFERASE 22 U/L (10-37); BILIRUBIN,TOTAL 1.4 MG/DL (0.1-1.0); BLOOD UREA NITROGEN 26 MG/DL (7-18); BUN/CREATININE RATIO 19.1 (5.4-32.0); CALCIUM 7.7 MG/DL (8.5-10.1); CHLORIDE 106 MMOL/L (99-107); CREATININE 1.36 MG/DL (0.60-1.10); GLUCOSE 116 MG/DL (70-104); POTASSIUM 3.9 MMOL/L (3.5-5.1); SODIUM 136 MMOL/L (135-145); TOTAL CARBON DIOXIDE 20.5 MMOL/L (24-32); TOTAL PROTEIN 6.3 G/DL (6.4-8.2); eGFR 53 ML/MIN
[2018-04-04 20:51] LABS: INR 1.5 INR; PARTIAL THROMBOPLASTIN TIME 41 SECONDS (22-32); PROTHROMBIN TIME 14.8 SECONDS (9.0-12.0)
[2018-04-04] MEDS ORDERED: temazepam 15mg capsule PO PRN (21:00)
[2018-04-04] MEDS ORDERED: furosemide 10 MG/1 ML 10ml inj IV ONE (21:00)
[2018-04-04] MEDS ORDERED: albumin (human) 25% 100ml IV 100 ML IV ONE (21:05)
[2018-04-04] MEDS ORDERED: CefTRIAXone 2gm/D5W 50ml 50 ML IV ONE (21:40)
[2018-04-04] MEDS ORDERED: LIDOcaine 1% w/EPI 1:100,000 30ml vial (MDV) IJ ONE (21:50)
[2018-04-04] MEDS ORDERED: mag hydrox/Alum hydrox/simeth 30ml oral suspension PO PRN (22:05)
[2018-04-04] MEDS ORDERED: HYDROmorphone 1 mg/ml syringe IV PRN (22:05)
[2018-04-04] MEDS ORDERED: magnesium hydroxide 30ml (MOM) UD suspension PO PRN (22:05)
[2018-04-04] MEDS ORDERED: diphenhydrAMINE 25mg capsule PO PRN (22:05)
[2018-04-04] MEDS ORDERED: acetaminophen 650mg rectal suppository RC PRN (22:05)
[2018-04-04] MEDS ORDERED: acetaminophen 325mg tablet PO PRN ×2 (22:05)
[2018-04-04] MEDS ORDERED: metoclopramide 5 mg/ml inj IV PRN (22:05)
[2018-04-04] MEDS ORDERED: bisacodyl 10mg suppository rectal RC PRN (22:05)
[2018-04-04] MEDS ORDERED: diphenhydrAMINE 50 mg/ml inj IV PRN (22:05)
--- NOTE | 2018-04-04 22:30 | NUR ---
Bedside paracentesis performed by Dr. Muse. 10L of fluid removed from abdomen. Patient reports improvement of pain and SOB. Fluid samples sent to lab.
[2018-04-04 22:44] LABS: PHOSPHORUS 3.7 MG/DL (2.3-4.5)
[2018-04-04 22:50] LABS: LDH,BODY FLUID 93 U/L
[2018-04-04 22:58] LABS: ALBUMIN,BODY FLUID < 0.6 G/DL
[2018-04-04 23:05] LABS: TOTAL PROTEIN,BODY FLUID < 2.0 G/DL
[2018-04-04 23:06] LABS: CLARITY,URINE CLEAR (Clear); COLOR,URINE YELLOW (Yellow); GLUCOSE, URINE NEGATIVE (Neg); KETONES,URINE NEGATIVE (Neg); LEUKOCYTE ESTERASE ,URINE NEGATIVE (Neg); NITRITES, URINE NEGATIVE (Neg); OCCULT BLOOD,URINE SMALL (Neg); PROTEIN,URINE NEGATIVE (Neg)
[2018-04-04 23:14] LABS: URINE AMPHETAMINE SCREEN POSITIVE (Neg); URINE BARBITUATE SCREEN NEGATIVE (Neg); URINE BENZODIAZEPINES SCREEN NEGATIVE (Neg); URINE CANNABINOID SCREEN NEGATIVE (Neg); URINE COCAINE SCREEN NEGATIVE (Neg); URINE METHADONE SCREEN NEGATIVE (Neg); URINE OPIATE SCREEN POSITIVE (Neg); URINE PHENCYCLIDINE SCREEN NEGATIVE (Neg)
[2018-04-04 23:40] LABS: UA COLLECTION TYPE CLN CATCH MIDSTREAM
[2018-04-04 23:45] LABS: BACTERIA,URINE FEW /HPF (Neg); HYALINE CASTS 0-3 /LPF (NEGATIVE); RBC,URINE NONE SEEN /HPF (0-2); SQUAMOUS EPITHELIAL CELL,UR FEW /LPF (FEW); WBC,URINE 0-4 /HPF (0-4)
[2018-04-04 23:54] LABS: LYMPHOCYTES,BODY FLUID 10 %; MONOCYTES,BODY FLUID 6 %; NEUTROPHILS,BODY FLUID 84 %
[2018-04-04 23:55] LABS: BF WBC COUNT 1670 /CU MM (0-1000); BFAPPEAR HAZY; BFCOLOR YELLOW; BFVOLUME 19 ML
[2018-04-04 23:56] LABS: BF RBC COUNT 1145 /CU MM
[2018-04-05 00:15] VITALS: BP 124/78
--- NOTE | 2018-04-05 00:15 | NUR ---
Received report from Matthieu TURNER from ED. Patient came up to floor via gurney. Patient said he was unable to stand. Used slide board and patient helped scoot over to bed. Vitals taken. Bed locked and low. Call light placed within reach.
[2018-04-05] MEDS: HYDROcodone/acetaminophen 5mg/325mg tablet PO PRN ×3 (00:47→23:55)
[2018-04-05 05:00] VITALS: BP 106/64
--- NOTE | 2018-04-05 06:27 | NUR ---
Problems reprioritized. Patient report given, questions answered & plan of care reviewed with Judit TURNER.
[2018-04-05 07:49] LABS: BASOPHILS % (AUTO) 0 % (0-1); EOSINOPHILS # (AUTO) 0.3 X10'3 (0-0.9); EOSINOPHILS % (AUTO) 2.3 % (0-6); HEMATOCRIT 27.3 % (42.0-52.0); HEMOGLOBIN 9.1 g/dl (14.0-17.9); LYMPHOCYTES # (AUTO) 0.5 X10'3 (1.1-4.8); LYMPHOCYTES % (AUTO) 3.7 % (21-51); MEAN CORPUSCULAR HEMOGLOBIN 29.6 PG (27.0-31.0); MEAN CORPUSCULAR HGB CONC 33.2 % (33.0-36.5); MEAN CORPUSCULAR VOLUME 89.2 FL (78-98); MEAN PLATELET VOLUME 6.4 FL (7.4-10.4); MONOCYTES # (AUTO) 0.7 X10'3 (0-0.9); MONOCYTES % (AUTO) 5.7 % (2-12); NEUTROPHILS # (AUTO) 11.1 X10'3 (1.8-7.7); NEUTROPHILS % (AUTO) 88.3 % (42-75); PLATELET COUNT 115 X10'3 (140-440); RED BLOOD COUNT 3.05 X10'6 (4.70-6.10); WHITE BLOOD COUNT 12.6 X10'3 (4.5-11.0)
[2018-04-05] MEDS ORDERED: docusate sod 100mg capsule PO SCH (08:00)
[2018-04-05 08:14] LABS: ALANINE AMINOTRANSFERASE 15 U/L (12-78); ALBUMIN 1.6 G/DL (3.4-5.0); ALBUMIN/GLOBULIN RATIO 0.4 (1.1-1.5); ALKALINE PHOSPHATASE 121 IU/L (46-116); ASPARTATE AMINO TRANSFERASE 21 U/L (10-37); BILIRUBIN,TOTAL 1.2 MG/DL (0.1-1.0); BLOOD UREA NITROGEN 29 MG/DL (7-18); BUN/CREATININE RATIO 20.9 (5.4-32.0); CALCIUM 7.7 MG/DL (8.5-10.1); CREATININE 1.39 MG/DL (0.60-1.10); GLUCOSE 83 MG/DL (70-104); TOTAL CARBON DIOXIDE 20.7 MMOL/L (24-32); TOTAL PROTEIN 6.1 G/DL (6.4-8.2); eGFR 52 ML/MIN
[2018-04-05 08:33] LABS: ANION GAP 13 (8-16); CHLORIDE 108 MMOL/L (99-107); POTASSIUM 3.6 MMOL/L (3.5-5.1); SODIUM 142 MMOL/L (135-145)
[2018-04-05] MEDS: lactulose 20gm/30ml cup PO SCH ×4 (08:44→23:51)
[2018-04-05] MEDS: azithromycin 250mg tablet PO SCH (08:46)
[2018-04-05] MEDS: CefTRIAXone/D5W-Rocephin 1gm 50 ML IV SCH (08:46)
[2018-04-05] MEDS: furosemide 10 MG/1 ML 10ml inj IV SCH ×2 (08:46→20:21)
[2018-04-05 10:00] VITALS: BP 105/66
--- NOTE | 2018-04-05 14:50 | NUR ---
Doctor at bedside
[2018-04-05 18:00] VITALS: BP 110/65
--- NOTE | 2018-04-05 18:29 | NUR ---
Problems reprioritized. Patient report given, questions answered & plan of care reviewed with Gaby TURNER.
--- NOTE | 2018-04-05 18:39 | NUR ---
Patient in room ORTHO 4014. I have received report from JOHNNY Griffin and had the opportunity to ask questions and assume patient care.
[2018-04-05] MEDS ORDERED: non-formulary drug (Lactobacillus Acidophilus (Probiotic) 1 EACH) PO SCH (20:00)
[2018-04-05] MEDS: rifaximin 550mg tablet PO SCH (20:22)
[2018-04-05 22:00] VITALS: BP 119/69
--- NOTE | 2018-04-06 02:50 | NUR ---
Problems reprioritized. Patient report given, questions answered & plan of care reviewed with JOHNNY Del Cid.
--- NOTE | 2018-04-06 02:59 | NUR ---
ASSUMED CARE OF PT AT 0250, REPORT RECEIVED, PT SLEEPING , RESPIRATION EVEN AND NOT LABORED , Addendum: 04/06/18 at 0307 by Maria Eugenia Mcdonald RN Amended: Links added.
[2018-04-06] MEDS: HYDROcodone/acetaminophen 5mg/325mg tablet PO PRN ×3 (05:20→19:01)
[2018-04-06 06:00] VITALS: BP 117/75
[2018-04-06 06:20] LABS: BASOPHILS % (AUTO) 0 % (0-1); EOSINOPHILS # (AUTO) 0.2 X10'3 (0-0.9); EOSINOPHILS % (AUTO) 1.5 % (0-6); HEMATOCRIT 29.8 % (42.0-52.0); HEMOGLOBIN 9.6 g/dl (14.0-17.9); LYMPHOCYTES # (AUTO) 0.4 X10'3 (1.1-4.8); LYMPHOCYTES % (AUTO) 3.6 % (21-51); MEAN CORPUSCULAR HGB CONC 32.3 % (33.0-36.5); MEAN PLATELET VOLUME 6.3 FL (7.4-10.4); MONOCYTES # (AUTO) 0.9 X10'3 (0-0.9); MONOCYTES % (AUTO) 7.7 % (2-12); NEUTROPHILS # (AUTO) 10.1 X10'3 (1.8-7.7); NEUTROPHILS % (AUTO) 87.2 % (42-75); PLATELET COUNT 125 X10'3 (140-440); RED BLOOD COUNT 3.31 X10'6 (4.70-6.10); RED CELL DISTRIBUTION WIDTH 18.8 % (11.5-14.5); WHITE BLOOD COUNT 11.6 X10'3 (4.5-11.0)
--- NOTE | 2018-04-06 06:30 | NUR ---
Patient in room ORTHO 4010. I have received report from Stephanie TURNER and had the opportunity to ask questions and assume patient care.
[2018-04-06 07:29] LABS: ALANINE AMINOTRANSFERASE 15 U/L (12-78); ALBUMIN 1.5 G/DL (3.4-5.0); ALBUMIN/GLOBULIN RATIO 0.3 (1.1-1.5); ALKALINE PHOSPHATASE 121 IU/L (46-116); ANION GAP 10 (8-16); ASPARTATE AMINO TRANSFERASE 15 U/L (10-37); BILIRUBIN,TOTAL 1.2 MG/DL (0.1-1.0); BLOOD UREA NITROGEN 32 MG/DL (7-18); BUN/CREATININE RATIO 19.4 (5.4-32.0); CALCIUM 7.4 MG/DL (8.5-10.1); CHLORIDE 106 MMOL/L (99-107); CREATININE 1.65 MG/DL (0.60-1.10); GLUCOSE 99 MG/DL (70-104); POTASSIUM 3.3 MMOL/L (3.5-5.1); SODIUM 139 MMOL/L (135-145); TOTAL CARBON DIOXIDE 22.8 MMOL/L (24-32); TOTAL PROTEIN 5.9 G/DL (6.4-8.2); eGFR 42 ML/MIN
[2018-04-06] MEDS: furosemide 10 MG/1 ML 10ml inj IV SCH ×2 (07:39→20:22)
[2018-04-06] MEDS: lactulose 20gm/30ml cup PO SCH ×2 (08:00→15:56)
[2018-04-06] MEDS: ferrous sulfate 325mg tablet PO SCH (08:00)
[2018-04-06] MEDS: folic acid 0.4mg tablet PO SCH (08:00)
[2018-04-06] MEDS: enoxaparin 30mg/0.3ml syringe SQ SCH (08:00)
[2018-04-06] MEDS: potassium chloride 10mEq ER tablet PO SCH (08:35)
[2018-04-06] MEDS: azithromycin 250mg tablet PO SCH (08:35)
[2018-04-06] MEDS: spironolactone 25 MG tablet PO SCH (08:35)
[2018-04-06] MEDS: pantoprazole 40mg Tablet.DR PO SCH (08:35)
[2018-04-06] MEDS: rifaximin 550mg tablet PO SCH ×2 (08:35→20:25)
[2018-04-06] MEDS: thiamine 100mg tablet PO SCH (08:36)
[2018-04-06] MEDS: CefTRIAXone/D5W-Rocephin 1gm 50 ML IV SCH (08:36)
[2018-04-06] MEDS: ondansetron/PF 4mg/2ml inj IV PRN (08:43)
--- NOTE | 2018-04-06 08:44 | NUR ---
Paged Dr. Gee Patient is requesting a paracentesis
[2018-04-06 10:00] VITALS: BP 114/76
[2018-04-06 18:00] VITALS: BP 119/73
--- NOTE | 2018-04-06 18:22 | NUR ---
Problems reprioritized. Patient report given, questions answered & plan of care reviewed with Ashly Payton RN.
--- NOTE | 2018-04-06 18:35 | NUR ---
Patient in room ORTHO 4010. I have received report from JOHNNY Alicia and had the opportunity to ask questions and assume patient care.
--- NOTE | 2018-04-06 19:30 | NUR ---
PIV right abdomen Addendum: 04/06/18 at 1930 by Rachael DIAMOND Amended: Links added.
[2018-04-06] MEDS: lactobacillus rhamnosus 10,000 MMU CELLS/CAPSULE PO SCH (20:25)
--- NOTE | 2018-04-06 23:46 | NUR ---
Patient refused 2200 vital signs. Rachael Kahn, SN
[2018-04-07] MEDS: lactulose 20gm/30ml cup PO SCH ×3 (00:03→16:00)
[2018-04-07] MEDS: HYDROcodone/acetaminophen 5mg/325mg tablet PO PRN ×4 (00:07→13:59)
[2018-04-07 06:00] VITALS: BP 117/82
--- NOTE | 2018-04-07 06:24 | NUR ---
Problems reprioritized. Patient report given, questions answered & plan of care reviewed with JOHNNY Alicia.
--- NOTE | 2018-04-07 06:43 | NUR ---
Patient in room ORTHO 4010. I have received report from Ashly Payton RN and had the opportunity to ask questions and assume patient care.
[2018-04-07] MEDS: enoxaparin 30mg/0.3ml syringe SQ SCH (07:00)
[2018-04-07 07:06] LABS: BASOPHILS % (AUTO) 0 % (0-1); EOSINOPHILS # (AUTO) 0.4 X10'3 (0-0.9); EOSINOPHILS % (AUTO) 2.9 % (0-6); HEMATOCRIT 31.7 % (42.0-52.0); HEMOGLOBIN 10.3 g/dl (14.0-17.9); LYMPHOCYTES # (AUTO) 0.4 X10'3 (1.1-4.8); LYMPHOCYTES % (AUTO) 3.4 % (21-51); MEAN CORPUSCULAR HEMOGLOBIN 29.1 PG (27.0-31.0); MEAN CORPUSCULAR HGB CONC 32.4 % (33.0-36.5); MEAN CORPUSCULAR VOLUME 89.8 FL (78-98); MEAN PLATELET VOLUME 6.4 FL (7.4-10.4); MONOCYTES # (AUTO) 0.9 X10'3 (0-0.9); MONOCYTES % (AUTO) 7.1 % (2-12); NEUTROPHILS # (AUTO) 10.4 X10'3 (1.8-7.7); NEUTROPHILS % (AUTO) 86.6 % (42-75); PLATELET COUNT 122 X10'3 (140-440); RED BLOOD COUNT 3.52 X10'6 (4.70-6.10); RED CELL DISTRIBUTION WIDTH 18.9 % (11.5-14.5)
[2018-04-07 07:35] LABS: ALANINE AMINOTRANSFERASE 13 U/L (12-78); ALBUMIN 1.4 G/DL (3.4-5.0); ALBUMIN/GLOBULIN RATIO 0.3 (1.1-1.5); ALKALINE PHOSPHATASE 123 IU/L (46-116); ANION GAP 10 (8-16); ASPARTATE AMINO TRANSFERASE 15 U/L (10-37); BILIRUBIN,TOTAL 1.2 MG/DL (0.1-1.0); BLOOD UREA NITROGEN 37 MG/DL (7-18); BUN/CREATININE RATIO 19.2 (5.4-32.0); CALCIUM 7.3 MG/DL (8.5-10.1); CHLORIDE 104 MMOL/L (99-107); CREATININE 1.93 MG/DL (0.60-1.10); GLUCOSE 94 MG/DL (70-104); POTASSIUM 3.2 MMOL/L (3.5-5.1); SODIUM 137 MMOL/L (135-145); TOTAL PROTEIN 6.1 G/DL (6.4-8.2); eGFR 35 ML/MIN
[2018-04-07] MEDS: folic acid 0.4mg tablet PO SCH (07:47)
[2018-04-07] MEDS: potassium chloride 10mEq ER tablet PO SCH (07:50)
[2018-04-07] MEDS: lactobacillus rhamnosus 10,000 MMU CELLS/CAPSULE PO SCH ×2 (07:50→19:59)
[2018-04-07] MEDS: ferrous sulfate 325mg tablet PO SCH (07:51)
[2018-04-07] MEDS: pantoprazole 40mg Tablet.DR PO SCH (07:51)
[2018-04-07] MEDS: rifaximin 550mg tablet PO SCH ×2 (07:51→19:59)
[2018-04-07] MEDS: azithromycin 250mg tablet PO SCH (07:51)
[2018-04-07] MEDS: thiamine 100mg tablet PO SCH (07:51)
[2018-04-07] MEDS: spironolactone 25 MG tablet PO SCH (07:51)
[2018-04-07] MEDS: CefTRIAXone/D5W-Rocephin 1gm 50 ML IV SCH (07:52)
[2018-04-07] MEDS: ascorbic acid 500mg tablet PO SCH (07:52)
[2018-04-07] MEDS: furosemide 10 MG/1 ML 10ml inj IV SCH (08:00)
[2018-04-07 10:00] VITALS: BP 133/83
[2018-04-07] MEDS ORDERED: diphenhydrAMINE 25mg capsule PO PRN (10:00)
[2018-04-07] MEDS ORDERED: LIDOcaine 1%/PF 5ML 10 MG/ML VIAL ONE (10:18)
[2018-04-07 10:34] VITALS: BP 133/83
[2018-04-07 11:24] VITALS: BP 111/64
[2018-04-07] MEDS: vancomycin inj 1,250 MG in normal saline 250ml IV soln 250 ML IV SCH ×2 (12:01→23:00)
--- NOTE | 2018-04-07 14:00 | NUR ---
Patient had a 3.2 potassium today and had a 3.3 potassium yesterday. Held Lasix both times and paged the MD. No changes were made to the orders, patient on on protocol. Will continue to monitor.
[2018-04-07 18:00] VITALS: BP 112/69
--- NOTE | 2018-04-07 18:28 | NUR ---
Problems reprioritized. Patient report given, questions answered & plan of care reviewed with Karo TURNER.
--- NOTE | 2018-04-07 18:42 | NUR ---
Patient in room ORTHO 4006. I have received report from Maral TURNER and had the opportunity to ask questions and assume patient care.
[2018-04-07] MEDS ORDERED: potassium Cl 20 mEq SR tablet PO PRN ×2 (19:20)
[2018-04-07] MEDS ORDERED: potassium Cl 20 mEq SR tablet PO ONE (19:20)
[2018-04-07] MEDS ORDERED: potassium Cl 40MEQ/NS 500ml 500 ML IV PRN ×2 (19:20)
[2018-04-07 22:00] VITALS: BP 126/66
[2018-04-08] MEDS: lactulose 20gm/30ml cup PO SCH ×3 (00:01→16:00)
[2018-04-08] MEDS: HYDROcodone/acetaminophen 5mg/325mg tablet PO PRN ×2 (01:00→08:55)
[2018-04-08 06:00] VITALS: BP 126/75
--- NOTE | 2018-04-08 06:34 | NUR ---
Problems reprioritized. Patient report given, questions answered & plan of care reviewed with REJI TURNER.
--- NOTE | 2018-04-08 06:40 | NUR ---
Patient in room ORTHO 4006. I have received report from Karo TURNER and had the opportunity to ask questions and assume patient care.
[2018-04-08] MEDS: K and/or MAG REPLACEMENT MC SCH (08:00)
[2018-04-08] MEDS: lactobacillus rhamnosus 10,000 MMU CELLS/CAPSULE PO SCH ×2 (08:42→21:04)
[2018-04-08] MEDS: rifaximin 550mg tablet PO SCH ×2 (08:42→21:04)
[2018-04-08] MEDS: enoxaparin 30mg/0.3ml syringe SQ SCH (08:43)
[2018-04-08] MEDS: thiamine 100mg tablet PO SCH (08:44)
[2018-04-08] MEDS: folic acid 0.4mg tablet PO SCH (08:44)
[2018-04-08] MEDS: pantoprazole 40mg Tablet.DR PO SCH (08:44)
[2018-04-08] MEDS: potassium chloride 10mEq ER tablet PO SCH (08:44)
[2018-04-08] MEDS: ferrous sulfate 325mg tablet PO SCH (08:44)
[2018-04-08 09:20] LABS: BASOPHILS # (AUTO) 0.1 X10'3 (0-0.2); BASOPHILS % (AUTO) 0.7 % (0-1); EOSINOPHILS # (AUTO) 0.2 X10'3 (0-0.9); EOSINOPHILS % (AUTO) 1.5 % (0-6); HEMATOCRIT 31.6 % (42.0-52.0); HEMOGLOBIN 10.3 g/dl (14.0-17.9); LYMPHOCYTES # (AUTO) 0.4 X10'3 (1.1-4.8); LYMPHOCYTES % (AUTO) 2.5 % (21-51); MEAN CORPUSCULAR HEMOGLOBIN 29.1 PG (27.0-31.0); MEAN CORPUSCULAR HGB CONC 32.6 % (33.0-36.5); MEAN CORPUSCULAR VOLUME 89.3 FL (78-98); MEAN PLATELET VOLUME 6.5 FL (7.4-10.4); MONOCYTES # (AUTO) 0.8 X10'3 (0-0.9); NEUTROPHILS % (AUTO) 90.3 % (42-75); PLATELET COUNT 106 X10'3 (140-440); RED BLOOD COUNT 3.54 X10'6 (4.70-6.10); RED CELL DISTRIBUTION WIDTH 18.4 % (11.5-14.5); WHITE BLOOD COUNT 16.6 X10'3 (4.5-11.0)
[2018-04-08 09:43] LABS: ALANINE AMINOTRANSFERASE 10 U/L (12-78); ALBUMIN 1.2 G/DL (3.4-5.0); ALBUMIN/GLOBULIN RATIO 0.3 (1.1-1.5); ALKALINE PHOSPHATASE 119 IU/L (46-116); ANION GAP 13 (8-16); ASPARTATE AMINO TRANSFERASE 15 U/L (10-37); BILIRUBIN,TOTAL 1.1 MG/DL (0.1-1.0); BLOOD UREA NITROGEN 40 MG/DL (7-18); BUN/CREATININE RATIO 21.2 (5.4-32.0); CALCIUM 7.6 MG/DL (8.5-10.1); CHLORIDE 105 MMOL/L (99-107); CREATININE 1.89 MG/DL (0.60-1.10); GLUCOSE 94 MG/DL (70-104); SODIUM 136 MMOL/L (135-145); TOTAL CARBON DIOXIDE 18.4 MMOL/L (24-32); TOTAL PROTEIN 5.7 G/DL (6.4-8.2); eGFR 36 ML/MIN
[2018-04-08 10:00] VITALS: BP 116/74
[2018-04-08] MEDS: spironolactone 25 MG tablet PO SCH (10:05)
[2018-04-08] MEDS: furosemide 10 MG/1 ML 10ml inj IV SCH ×2 (10:07→21:05)
[2018-04-08] MEDS: vancomycin inj 1,250 MG in normal saline 250ml IV soln 250 ML IV SCH (11:41)
--- NOTE | 2018-04-08 11:50 | NUR ---
Paged Dr. Gee that Blood cultures positive for MRSA
[2018-04-08 18:00] VITALS: BP 108/59
--- NOTE | 2018-04-08 18:38 | NUR ---
Problems reprioritized. Patient report given, questions answered & plan of care reviewed with Maria Eugenia TURNER.
[2018-04-08 22:00] VITALS: BP 122/75
[2018-04-08] MEDS ORDERED: VANCOMYCIN LEVEL IV ONE (22:30)
[2018-04-09] MEDS: vancomycin inj 1,250 MG in normal saline 250ml IV soln 250 ML IV SCH ×3 (00:01→11:00)
[2018-04-09] MEDS: morphine 2 MG/ML inj. syringe IV PRN ×3 (00:03→19:49)
[2018-04-09 01:21] LABS: ALANINE AMINOTRANSFERASE 12 U/L (12-78); ALBUMIN 1.3 G/DL (3.4-5.0); ALBUMIN/GLOBULIN RATIO 0.3 (1.1-1.5); ALKALINE PHOSPHATASE 115 IU/L (46-116); ANION GAP 13 (8-16); ASPARTATE AMINO TRANSFERASE 15 U/L (10-37); BILIRUBIN,TOTAL 1.1 MG/DL (0.1-1.0); BLOOD UREA NITROGEN 43 MG/DL (7-18); BUN/CREATININE RATIO 21.6 (5.4-32.0); CALCIUM 7.7 MG/DL (8.5-10.1); CHLORIDE 104 MMOL/L (99-107); CREATININE 1.99 MG/DL (0.60-1.10); GLUCOSE 85 MG/DL (70-104); SODIUM 138 MMOL/L (135-145); TOTAL CARBON DIOXIDE 21.4 MMOL/L (24-32); TOTAL PROTEIN 5.7 G/DL (6.4-8.2); eGFR 34 ML/MIN
[2018-04-09 01:36] LABS: VANCOMYCIN,TROUGH 31.7 UG/ML (6.0-14.0)
[2018-04-09 01:54] LABS: BASOPHILS % (AUTO) 0.1 % (0-1); EOSINOPHILS # (AUTO) 0.3 X10'3 (0-0.9); EOSINOPHILS % (AUTO) 1.6 % (0-6); HEMATOCRIT 32.7 % (42.0-52.0); HEMOGLOBIN 10.7 g/dl (14.0-17.9); LYMPHOCYTES # (AUTO) 0.5 X10'3 (1.1-4.8); LYMPHOCYTES % (AUTO) 2.3 % (21-51); MEAN CORPUSCULAR HEMOGLOBIN 29.3 PG (27.0-31.0); MEAN CORPUSCULAR HGB CONC 32.6 % (33.0-36.5); MEAN CORPUSCULAR VOLUME 89.8 FL (78-98); MEAN PLATELET VOLUME 6.5 FL (7.4-10.4); MONOCYTES # (AUTO) 0.7 X10'3 (0-0.9); MONOCYTES % (AUTO) 3.7 % (2-12); NEUTROPHILS % (AUTO) 92.3 % (42-75); PLATELET COUNT 120 X10'3 (140-440); RED BLOOD COUNT 3.64 X10'6 (4.70-6.10); RED CELL DISTRIBUTION WIDTH 19.1 % (11.5-14.5); WHITE BLOOD COUNT 19.5 X10'3 (4.5-11.0)
[2018-04-09 06:00] VITALS: BP 111/69
--- NOTE | 2018-04-09 06:44 | NUR ---
Patient in room ORTHO 4006. I have received report from Maria Eugenia TURNER and had the opportunity to ask questions and assume patient care.
[2018-04-09 07:42] LABS: MAGNESIUM 1.9 MG/DL (1.5-2.4)
[2018-04-09] MEDS: furosemide 10 MG/1 ML 10ml inj IV SCH ×2 (08:00→22:49)
[2018-04-09] MEDS: K and/or MAG REPLACEMENT MC SCH (08:00)
[2018-04-09] MEDS: lactobacillus rhamnosus 10,000 MMU CELLS/CAPSULE PO SCH ×2 (08:53→19:49)
[2018-04-09] MEDS: spironolactone 25 MG tablet PO SCH (08:53)
[2018-04-09] MEDS: folic acid 0.4mg tablet PO SCH (08:53)
[2018-04-09] MEDS: potassium chloride 10mEq ER tablet PO SCH (08:53)
[2018-04-09] MEDS: thiamine 100mg tablet PO SCH (08:53)
[2018-04-09] MEDS: pantoprazole 40mg Tablet.DR PO SCH (08:54)
[2018-04-09] MEDS: ferrous sulfate 325mg tablet PO SCH (08:54)
[2018-04-09] MEDS: lactulose 20gm/30ml cup PO SCH ×3 (08:54→16:40)
[2018-04-09] MEDS: rifaximin 550mg tablet PO SCH ×2 (09:06→19:49)
[2018-04-09 10:00] VITALS: BP 104/67
[2018-04-09] MEDS: CefTRIAXone 2gm/D5W 50ml 50 ML IV SCH (10:58)
[2018-04-09] MEDS ORDERED: VANCOMYCIN LEVEL IV ONE (11:40)
--- NOTE | 2018-04-09 11:59 | NUR ---
Pharmacy to redose Vanco due to critical high tough at midnight on 04/09/2018. A random vanco level was redrawn at 1030, pharmacy aware of level and must redose Vanco. Patient continued to refuse Lasix even though I educated the patient several times regarding the importance of maintaining fluid balance. Dr. Gee is aware. Will continue to monitor.
--- NOTE | 2018-04-09 14:11 | NUR ---
Initial: Pt admit w/ hx end stage liver disease and etoh. S/p paracentesis w/ 12.8L removed per MD note. LBM 04/08. Receiving folic, thiamin for etoh. Abdomen +4 and BLE +3 pitting edema present. PO decreased to 0% meals from 100% previous. Will monitor for ONS needs. Rec: 1. continue regular/fluid restricted diet 2. monitor for ONS needs 3. wt per rx Addendum: 04/09/18 at [address] Amended: Links added.
--- NOTE | 2018-04-09 14:44 | NUR ---
PAGER ID: [phone] MESSAGE: [phone] Arian Humphrey Would you like to renew Morphine order? Thank you, Tereza [phone]
--- NOTE | 2018-04-09 16:43 | NUR ---
PAGER ID: [phone] MESSAGE: [phone] Arian Humphrey May I renew the Morphine order please? Thank you, Tereza [phone]
[2018-04-09 18:00] VITALS: BP 108/65
[2018-04-09 22:00] VITALS: BP 114/64
--- NOTE | 2018-04-10 00:30 | NUR ---
ASSUMED CARE OF PT , PT ASSESSMENT CONTINUES SAME EARLIER ON PMS , PT UP TO THE BATHROOM AND GAIT IS FAIRLY STEADY, NO C/O AT THIS TIME , LINEN CHANGED PT SPILLED HIS URINAL , PT RETURNED TO BED AND POSITION OF COMFORT , PT WANTS TO TAKE A SHOWER , WILL TRY IN THE EARLY AM Addendum: 04/10/18 at 0344 by Maria Eugenia Mcdonald RN Amended: Links added.
--- NOTE | 2018-04-10 00:30 | NUR ---
Problems reprioritized. Patient report given, questions answered & plan of care reviewed with Maria Eugenia TURNER.
[2018-04-10 06:00] VITALS: BP 98/68
--- NOTE | 2018-04-10 06:20 | NUR ---
Patient in room ORTHO 4006. I have received report from Maria Eugenia TURNER and had the opportunity to ask questions and assume patient care.
--- NOTE | 2018-04-10 06:48 | NUR ---
Patient in room ORTHO 4006. I have received report from Katie and had the opportunity to ask questions and assume patient care.
[2018-04-10 07:14] VITALS: BP 100/60
[2018-04-10] MEDS: CefTRIAXone 2gm/D5W 50ml 50 ML IV SCH (07:15)
[2018-04-10] MEDS: morphine 2 MG/ML inj. syringe IV PRN ×3 (07:16→18:43)
[2018-04-10] MEDS: K and/or MAG REPLACEMENT MC SCH (08:00)
[2018-04-10] MEDS: furosemide 10 MG/1 ML 10ml inj IV SCH ×2 (08:00→20:00)
[2018-04-10] MEDS: rifaximin 550mg tablet PO SCH ×2 (08:49→20:00)
[2018-04-10] MEDS: spironolactone 25 MG tablet PO SCH (08:49)
[2018-04-10] MEDS: lactulose 20gm/30ml cup PO SCH ×3 (08:51→16:00)
[2018-04-10] MEDS: potassium chloride 10mEq ER tablet PO SCH (08:52)
[2018-04-10] MEDS: folic acid 0.4mg tablet PO SCH (08:55)
[2018-04-10] MEDS: thiamine 100mg tablet PO SCH (08:55)
[2018-04-10] MEDS: pantoprazole 40mg Tablet.DR PO SCH (08:56)
[2018-04-10] MEDS: lactobacillus rhamnosus 10,000 MMU CELLS/CAPSULE PO SCH ×2 (08:58→20:00)
[2018-04-10] MEDS: ascorbic acid 500mg tablet PO SCH (08:58)
[2018-04-10] MEDS: ferrous sulfate 325mg tablet PO SCH (08:59)
[2018-04-10 10:00] VITALS: BP 110/69
[2018-04-10] MEDS ORDERED: VANCOMYCIN LEVEL IV ONE (11:00)
--- NOTE | 2018-04-10 11:48 | NUR ---
Student Medication Administration:For this medication-pass time frame 8472-4401, all medications were reviewed, administered and documented per hospital policy by Matthieu Shay. Student documentation: I have reviewed and agree with all interventions, assessments performed and documented by Matthieu Shay.
--- NOTE | 2018-04-10 12:00 | NUR ---
Problems reprioritized. Patient report given, questions answered & plan of care reviewed with Katie.
[2018-04-10 18:00] VITALS: BP 110/64
--- NOTE | 2018-04-10 18:00 | NUR ---
Patient continues to state he does not want any medication except for his morphine. This was witnessed at shift report with Tereza Unger RN
--- NOTE | 2018-04-10 18:38 | NUR ---
RECEIVED REPORT FROM RAYMUNDO TURNER AND ASSUMED PATIENT CARE
--- NOTE | 2018-04-10 20:47 | NUR ---
PATIENT REFUSING ALL EVENING MEDS AT THIS TIME. STATES HE WANTS ONLY COMFORT MEASURES AT THIS TIME AND IS CONSIDERING COMFORT CARE. PATIENT IS ALERT AND ORIENTED X4 AT THIS TIME. WILL CONTINUE TO EDUCATE AND MONITOR.
[2018-04-10 22:00] VITALS: BP 103/70
[2018-04-11] MEDS: morphine 2 MG/ML inj. syringe IV PRN ×5 (00:37→20:35)
[2018-04-11] MEDS ORDERED: VANCOMYCIN LEVEL IV ONE (04:00)
--- NOTE | 2018-04-11 05:00 | NUR ---
PATIENT REFUSING 0600 VITALS
--- NOTE | 2018-04-11 06:07 | NUR ---
REPORT GIVEN TO RAYMUNDO TURNER
[2018-04-11] MEDS: rifaximin 550mg tablet PO SCH (08:00)
[2018-04-11] MEDS: ferrous sulfate 325mg tablet PO SCH (08:00)
[2018-04-11] MEDS: folic acid 0.4mg tablet PO SCH (08:00)
[2018-04-11] MEDS: potassium chloride 10mEq ER tablet PO SCH (08:00)
[2018-04-11] MEDS: furosemide 10 MG/1 ML 10ml inj IV SCH (08:00)
[2018-04-11] MEDS: lactobacillus rhamnosus 10,000 MMU CELLS/CAPSULE PO SCH (08:00)
[2018-04-11] MEDS: spironolactone 25 MG tablet PO SCH (08:00)
[2018-04-11] MEDS: K and/or MAG REPLACEMENT MC SCH (08:00)
[2018-04-11] MEDS: lactulose 20gm/30ml cup PO SCH ×3 (08:00→16:00)
[2018-04-11] MEDS: thiamine 100mg tablet PO SCH (08:00)
[2018-04-11] MEDS: CefTRIAXone 2gm/D5W 50ml 50 ML IV SCH (08:00)
[2018-04-11] MEDS ORDERED: LORazepam 2 mg/ml vial IV PRN (09:55)
[2018-04-11] MEDS: ondansetron/PF 4mg/2ml inj IV PRN (09:59)
[2018-04-11 10:00] VITALS: BP 103/57
--- NOTE | 2018-04-11 17:09 | NUR ---
Paged Dr Gee, patient requesting morphine more often secondary to increasing pain. New order
[2018-04-11 18:00] VITALS: BP 105/66
--- NOTE | 2018-04-11 18:42 | NUR ---
Routine po meds dc secondary to comfort care and patient refusing
[2018-04-11] MEDS: VANCOMYCIN LEVEL IV SCH (20:24)
[2018-04-11 22:00] VITALS: BP 95/62
[2018-04-12] MEDS: morphine 2 MG/ML inj. syringe IV PRN ×3 (01:02→06:25)
[2018-04-12] MEDS ORDERED: morphine 4 MG/ML inj SYRINge IV PRN (07:50)
[2018-04-12] MEDS ORDERED: morphine 10mg/ml inj. IV PRN (07:55)
[2018-04-12] MEDS: K and/or MAG REPLACEMENT MC SCH (08:00)
[2018-04-12] MEDS ORDERED: vancomycin inj 1,250 MG in normal saline 250ml IV soln 250 ML IV PRN (08:00)
[2018-04-12 10:00] VITALS: BP 107/69
--- NOTE | 2018-04-12 11:19 | NUR ---
Pt has been made DNR w/ comfort care. [facility] 04/10. Will follow per protocol. Addendum: 04/12/18 at [address] Amended: Links added.
--- NOTE | 2018-04-12 18:33 | NUR ---
Report to Maria Eugenia TURNER
[2018-04-12] MEDS: morphine 4 MG/ML inj SYRINge IV PRN (21:50)
[2018-04-12 22:00] VITALS: BP 105/71
[2018-04-13] MEDS: VANCOMYCIN LEVEL IV SCH (03:00)
[2018-04-13] MEDS: morphine 4 MG/ML inj SYRINge IV PRN ×3 (04:49→15:02)
--- NOTE | 2018-04-13 06:39 | NUR ---
Patient in room ORTHO 4006. I have received report from Maria Eugenia TURNER and had the opportunity to ask questions and assume patient care.
[2018-04-13 10:02] VITALS: BP 96/61
--- NOTE | 2018-04-13 11:13 | NUR ---
Student documentation: I have reviewed and agree with all interventions, assessments performed and documented by Lindsay Amusement [employer] Ride Mechanic.
--- NOTE | 2018-04-13 15:15 | NUR ---
Student Medication Administration: For this medication-pass time frame, all medication were reviewed, dispensed, administered and documented per hospital policy by Klarissa Garland Medication was not administered as ordered as patient's IV was leaking and needed to be discontined.
[2018-04-13] MEDS: morphine 10 MG/5 ML UD oral solution PO PRN ×2 (16:06→21:35)
--- NOTE | 2018-04-13 17:59 | NUR ---
Problems reprioritized. Patient report given, questions answered & plan of care reviewed with Cherelle TURNER.
--- NOTE | 2018-04-13 18:15 | NUR ---
Patient in room ORTHO 4006. I have received report from JOHNNY Helm and had the opportunity to ask questions and assume patient care.
[2018-04-13 22:00] VITALS: BP 96/57
[2018-04-14] MEDS: morphine 10 MG/5 ML UD oral solution PO PRN ×5 (01:58→20:41)
--- NOTE | 2018-04-14 06:33 | NUR ---
Patient in room ORTHO 4006. I have received report from Cherelle TURNER and had the opportunity to ask questions and assume patient care.
--- NOTE | 2018-04-14 06:38 | NUR ---
Problems reprioritized. Patient report given, questions answered & plan of care reviewed with JOHNNY Helm.
[2018-04-14 10:00] VITALS: BP 79/48
--- NOTE | 2018-04-14 18:00 | NUR ---
Patient in room ORTHO 4006. I have received report from JOHNNY Helm and had the opportunity to ask questions and assume patient care.
--- NOTE | 2018-04-14 18:07 | NUR ---
Problems reprioritized. Patient report given, questions answered & plan of care reviewed with Cherelle TURNER.
[2018-04-14] MEDS: nystatin 15 GM powder TP SCH (20:42)
[2018-04-14 22:00] VITALS: BP 105/66
[2018-04-15] MEDS: morphine 10 MG/5 ML UD oral solution PO PRN ×5 (00:52→22:49)
--- NOTE | 2018-04-15 06:00 | NUR ---
Problems reprioritized. Patient report given, questions answered & plan of care reviewed with .
--- NOTE | 2018-04-15 06:27 | NUR ---
Problems reprioritized. Patient report given, questions answered & plan of care reviewed with JOHNNY Helm.
--- NOTE | 2018-04-15 06:37 | NUR ---
Patient in room ORTHO 4006. I have received report from Cherelle TURNER and had the opportunity to ask questions and assume patient care.
[2018-04-15] MEDS: nystatin 15 GM powder TP SCH ×3 (07:32→20:43)
[2018-04-15 10:00] VITALS: BP 90/52
--- NOTE | 2018-04-15 17:58 | NUR ---
Problems reprioritized. Patient report given, questions answered & plan of care reviewed with Cherelle TURNER.
--- NOTE | 2018-04-15 18:05 | NUR ---
Patient in room ORTHO 4006. I have received report from JOHNNY Helm and had the opportunity to ask questions and assume patient care.
[2018-04-16] MEDS: morphine 10 MG/5 ML UD oral solution PO PRN ×3 (03:01→12:23)
--- NOTE | 2018-04-16 06:10 | NUR ---
Problems reprioritized. Patient report given, questions answered & plan of care reviewed with JOHNNY Alicia.
[2018-04-16] MEDS: nystatin 15 GM powder TP SCH ×3 (08:15→22:40)
[2018-04-16 10:00] VITALS: BP 98/65
--- NOTE | 2018-04-16 18:14 | NUR ---
Problems reprioritized. Patient report given, questions answered & plan of care reviewed with Kajal TURNER.
--- NOTE | 2018-04-16 18:53 | NUR ---
REPORT REC'D FROM JOHNNY TOBAR. ELEVATED BP, NITROPATCH APPLIED. Addendum: 04/16/18 at 1855 by Kajal Colin RN REPORT REC'D FROM JOHNNY TOBAR. NO NITROPATCH FOR THIS PATIENT.
--- NOTE | 2018-04-16 19:24 | NUR ---
FAMILY MEMBER, BROTHER CALLED TO CHECK ON PT. PT IS RESTING IN BED COMFORTABLY ASLEEP.
[2018-04-16] MEDS: ondansetron 4mg rapidly disintigrating tab PO PRN (19:36)
[2018-04-16] MEDS: LORazepam 1 MG tablet PO PRN (19:36)
[2018-04-16] MEDS: traMADol 50MG tablet PO PRN (19:37)
[2018-04-16 22:00] VITALS: BP 98/67
[2018-04-17] MEDS: morphine 10 MG/5 ML UD oral solution PO PRN ×3 (01:10→22:26)
[2018-04-17 01:13] VITALS: BP 154/94
--- NOTE | 2018-04-17 06:13 | NUR ---
REPORT GIVEN TO JOHNNY TOBAR.
[2018-04-17] MEDS: nystatin 15 GM powder TP SCH ×3 (08:48→21:00)
[2018-04-17 10:00] VITALS: BP 100/70
--- NOTE | 2018-04-17 18:09 | NUR ---
Problems reprioritized. Patient report given, questions answered & plan of care reviewed with Kajal TURNER.
[2018-04-17 22:00] VITALS: BP 96/66
[2018-04-18] MEDS: morphine 10 MG/5 ML UD oral solution PO PRN ×3 (03:32→19:59)
[2018-04-18] MEDS: LORazepam 1 MG tablet PO PRN ×2 (05:25→16:27)
[2018-04-18] MEDS: traMADol 50MG tablet PO PRN (05:25)
--- NOTE | 2018-04-18 06:31 | NUR ---
Report given to Maral TURNER.
[2018-04-18] MEDS: nystatin 15 GM powder TP SCH ×3 (08:42→20:32)
[2018-04-18 10:00] VITALS: BP 83/61
[2018-04-18] MEDS ORDERED: LIDOcaine 1%/PF 5ML 10 MG/ML VIAL ONE (14:17)
[2018-04-18 14:30] VITALS: BP 88/65
[2018-04-18 15:05] VITALS: BP 82/63
[2018-04-18] MEDS ORDERED: albumin (human) 25% 100ml IV 100 ML IV ONE (15:10)
[2018-04-18 15:32] VITALS: BP 92/49
--- NOTE | 2018-04-18 18:15 | NUR ---
Patient in room ORTHO 4006. I have received report from Maral TURNER and had the opportunity to ask questions and assume patient care.
--- NOTE | 2018-04-18 18:23 | NUR ---
Problems reprioritized. Patient report given, questions answered & plan of care reviewed with Gaby TURNER.
[2018-04-18 21:00] VITALS: BP 88/62
--- NOTE | 2018-04-19 06:23 | NUR ---
Problems reprioritized. Patient report given, questions answered & plan of care reviewed with Yvette TURNER.
[2018-04-19] MEDS: morphine 10 MG/5 ML UD oral solution PO PRN ×2 (07:12→17:07)
[2018-04-19] MEDS: nystatin 15 GM powder TP SCH ×3 (07:20→21:32)
[2018-04-19 10:00] VITALS: BP 81/53
--- NOTE | 2018-04-19 11:09 | NUR ---
Student documentation/Student Medication Administration: I have reviewed all interventions, assessments performed and documented [facility]. For this medication-pass time frame, all medication were reviewed, dispensed, administered and documented per hospital policy by Lindsay [facility].
[2018-04-19 22:00] VITALS: BP 83/48
[2018-04-20] MEDS: morphine 10 MG/5 ML UD oral solution PO PRN ×3 (05:06→21:08)
--- NOTE | 2018-04-20 06:00 | NUR ---
Patient in room ORTHO 4006. I have received report from Maria Eugenia TURNER and had the opportunity to ask questions and assume patient care.
[2018-04-20] MEDS: nystatin 15 GM powder TP SCH ×3 (09:08→21:09)
[2018-04-20 10:56] VITALS: BP 78/47
--- NOTE | 2018-04-20 18:00 | NUR ---
Patient in room ORTHO 4006. I have received report from JOHNNY Levin and had the opportunity to ask questions and assume patient care.
--- NOTE | 2018-04-20 18:00 | NUR ---
Problems reprioritized. Patient report given, questions answered & plan of care reviewed with Cherelle TURNER.
[2018-04-20 22:00] VITALS: BP 92/60
[2018-04-21] MEDS: morphine 10 MG/5 ML UD oral solution PO PRN ×5 (04:51→23:27)
--- NOTE | 2018-04-21 06:23 | NUR ---
Problems reprioritized. Patient report given, questions answered & plan of care reviewed with JOHNNY Helm.
--- NOTE | 2018-04-21 06:39 | NUR ---
Patient in room ORTHO 4006. I have received report from Cherelle TURNER and had the opportunity to ask questions and assume patient care.
--- NOTE | 2018-04-21 06:41 | NUR ---
Patient in room ORTHO 4006. I have received report from Cherelle TURNER and had the opportunity to ask questions and assume patient care.
[2018-04-21] MEDS: nystatin 15 GM powder TP SCH ×3 (08:46→21:45)
[2018-04-21 10:00] VITALS: BP 75/50
--- NOTE | 2018-04-21 18:00 | NUR ---
Problems reprioritized. Patient report given, questions answered & plan of care reviewed with Mago TURNER.
--- NOTE | 2018-04-21 18:30 | NUR ---
Patient in room ORTHO 4006. I have received report from Volodymyr TURNER and had the opportunity to ask questions and assume patient care.
[2018-04-22 01:59] VITALS: BP 94/64
--- NOTE | 2018-04-22 06:00 | NUR ---
Patient in room ORTHO 4006. I have received report from Mago TURNER and had the opportunity to ask questions and assume patient care.
--- NOTE | 2018-04-22 06:31 | NUR ---
Problems reprioritized. Patient report given, questions answered & plan of care reviewed with Poonam TURNER.
[2018-04-22] MEDS: nystatin 15 GM powder TP SCH ×3 (08:00→21:07)
[2018-04-22 10:00] VITALS: BP 85/55
[2018-04-22] MEDS: ondansetron 4mg rapidly disintigrating tab PO PRN (13:23)
[2018-04-22] MEDS: morphine 10 MG/5 ML UD oral solution PO PRN ×2 (13:23→18:21)
--- NOTE | 2018-04-22 14:20 | NUR ---
Paged Dr. Palmer. [phone]. Wanted to confirm discharge home today? [place] [phone]
--- NOTE | 2018-04-22 18:00 | NUR ---
Patient in room ORTHO 4006. I have received report from JOHNNY Levin and had the opportunity to ask questions and assume patient care.
--- NOTE | 2018-04-22 18:05 | NUR ---
Problems reprioritized. Patient report given, questions answered & plan of care reviewed with Cherelle TURNER.
[2018-04-22 22:00] VITALS: BP 89/59
[2018-04-23] MEDS: morphine 10 MG/5 ML UD oral solution PO PRN ×3 (00:49→15:36)
--- NOTE | 2018-04-23 06:07 | NUR ---
Problems reprioritized. Patient report given, questions answered & plan of care reviewed with JOHNNY Sears.
--- NOTE | 2018-04-23 06:25 | NUR ---
Patient in room ORTHO 4006. I have received report from JOHNNY Villarreal and had the opportunity to ask questions and assume patient care.
[2018-04-23] MEDS: nystatin 15 GM powder TP SCH ×3 (08:00→20:45)
[2018-04-23 10:00] VITALS: BP 85/48
--- NOTE | 2018-04-23 18:33 | NUR ---
Problems reprioritized. Patient report given, questions answered & plan of care reviewed with JOHNNY Crawford.
--- NOTE | 2018-04-24 01:00 | NUR ---
Assumed care of pt at this time report from Yvette.
[2018-04-24] MEDS: morphine 10 MG/5 ML UD oral solution PO PRN ×4 (03:42→20:29)
--- NOTE | 2018-04-24 06:35 | NUR ---
received report from Peggy
[2018-04-24 07:22] VITALS: BP 96/63
[2018-04-24] MEDS: nystatin 15 GM powder TP SCH ×3 (08:18→20:29)
[2018-04-24 18:00] VITALS: BP 86/57
--- NOTE | 2018-04-24 18:10 | NUR ---
Received report from Laly TURNER assumed care of patient.
[2018-04-25 06:00] VITALS: BP 85/56
--- NOTE | 2018-04-25 06:35 | NUR ---
Report given to Maarl TURNER.
[2018-04-25] MEDS: nystatin 15 GM powder TP SCH ×3 (08:32→19:37)
--- NOTE | 2018-04-25 18:17 | NUR ---
Problems reprioritized. Patient report given, questions answered & plan of care reviewed with Virgie TURNER.
[2018-04-25] MEDS: morphine 10 MG/5 ML UD oral solution PO PRN (19:36)
[2018-04-26] MEDS: morphine 10 MG/5 ML UD oral solution PO PRN ×2 (02:40→08:55)
[2018-04-26 06:00] VITALS: BP 88/56
--- NOTE | 2018-04-26 06:12 | NUR ---
received report from page franklin
--- NOTE | 2018-04-26 06:21 | NUR ---
Problems reprioritized. Patient report given, questions answered & plan of care reviewed with JOHNNY LAGUNAS.
[2018-04-26] MEDS: nystatin 15 GM powder TP SCH ×3 (08:55→21:17)
[2018-04-26] MEDS ORDERED: morphine 10mg/0.5ml (conc. morphine) oral syringe PO PRN (10:55)
[2018-04-26] MEDS: morphine 10mg/0.5ml (conc. morphine) oral syringe PO SCH ×3 (12:28→21:17)
[2018-04-26 18:00] VITALS: BP 83/54
--- NOTE | 2018-04-26 18:40 | NUR ---
gave report to page garcia
--- NOTE | 2018-04-26 18:43 | NUR ---
PATIENT REPORT RECEIVED FROM JANNETH TURNER.
[2018-04-26 22:00] VITALS: BP 100/50
[2018-04-27] MEDS: morphine 10mg/0.5ml (conc. morphine) oral syringe PO SCH ×4 (02:57→19:31)
[2018-04-27 06:00] VITALS: BP 92/61
--- NOTE | 2018-04-27 06:00 | NUR ---
Patient in room ORTHO 4006. I have received report from Jayshree Payton and had the opportunity to ask questions and assume patient care.
--- NOTE | 2018-04-27 06:36 | NUR ---
PATIENT REPORT GIVEN TO NICOLE TURNER.
[2018-04-27] MEDS: nystatin 15 GM powder TP SCH ×3 (08:48→21:41)
[2018-04-27 10:00] VITALS: BP 92/60
--- NOTE | 2018-04-27 18:00 | NUR ---
Patient in room ORTHO 4006. I have received report from Norma abel and had the opportunity to ask questions and assume patient care.
--- NOTE | 2018-04-27 18:00 | NUR ---
Problems reprioritized. Patient report given, questions answered & plan of care reviewed with Kelly TURNER.
[2018-04-28] MEDS: morphine 10mg/0.5ml (conc. morphine) oral syringe PO SCH ×4 (01:58→20:23)
--- NOTE | 2018-04-28 06:10 | NUR ---
Patient in room ORTHO 4006. I have received report from Kelly TURNER and had the opportunity to ask questions and assume patient care.
--- NOTE | 2018-04-28 06:22 | NUR ---
Problems reprioritized. Patient report given, questions answered & plan of care reviewed with Poonam TURNER.
[2018-04-28] MEDS: nystatin 15 GM powder TP SCH ×3 (08:34→20:24)
[2018-04-28 10:00] VITALS: BP 84/57
--- NOTE | 2018-04-28 18:00 | NUR ---
Problems reprioritized. Patient report given, questions answered & plan of care reviewed with Gerardo TURNER.
--- NOTE | 2018-04-28 18:30 | NUR ---
Patient in room ORTHO 4006. I have received report from Poonam TURNER and had the opportunity to ask questions and assume patient care. Pt lying in bed, asleep. no s/s of distress.
[2018-04-28 22:00] VITALS: BP_SYST 87; BP_SYST 96; BP_DIAS 59; BP_DIAS 62
[2018-04-29] MEDS: morphine 10mg/0.5ml (conc. morphine) oral syringe PO SCH ×4 (02:05→20:47)
[2018-04-29] MEDS: morphine 10mg/0.5ml (conc. morphine) oral syringe PO PRN (05:33)
--- NOTE | 2018-04-29 06:00 | NUR ---
Patient in room ORTHO 4006. I have received report from Gerardo TURNER and had the opportunity to ask questions and assume patient care.
--- NOTE | 2018-04-29 06:23 | NUR ---
Problems reprioritized. Patient report given, questions answered & plan of care reviewed with Poonam TURNER.
[2018-04-29] MEDS: nystatin 15 GM powder TP SCH ×3 (08:00→20:48)
[2018-04-29 10:00] VITALS: BP 87/57
--- NOTE | 2018-04-29 18:00 | NUR ---
Problems reprioritized. Patient report given, questions answered & plan of care reviewed with Cherelle TURNER.
--- NOTE | 2018-04-29 18:00 | NUR ---
Patient in room ORTHO 4006. I have received report from JOHNNY Levin and had the opportunity to ask questions and assume patient care.
[2018-04-30] MEDS: morphine 10mg/0.5ml (conc. morphine) oral syringe PO SCH ×4 (01:19→20:10)
--- NOTE | 2018-04-30 06:37 | NUR ---
Problems reprioritized. Patient report given, questions answered & plan of care reviewed with JOHNNY Alicia.
[2018-04-30] MEDS: nystatin 15 GM powder TP SCH ×3 (07:43→21:00)
[2018-04-30 10:00] VITALS: BP 99/66
--- NOTE | 2018-04-30 15:03 | NUR ---
Pt has been made DNR w/ comfort care. [facility] 04/28. Will follow per protocol Addendum: 04/30/18 at [address] Amended: Links added.
--- NOTE | 2018-04-30 18:24 | NUR ---
Problems reprioritized. Patient report given, questions answered & plan of care reviewed with Stephanie TURNER.
[2018-04-30 22:00] VITALS: BP 95/61
[2018-05-01] MEDS: morphine 10mg/0.5ml (conc. morphine) oral syringe PO SCH ×4 (02:18→20:55)
[2018-05-01] MEDS: nystatin 15 GM powder TP SCH ×3 (07:36→20:56)
[2018-05-01 10:00] VITALS: BP 96/67
--- NOTE | 2018-05-01 18:05 | NUR ---
RECEIVED REPORT FROM AMADOU TURNER AND ASSUMED PATIENT CARE
--- NOTE | 2018-05-01 18:15 | NUR ---
Problems reprioritized. Patient report given, questions answered & plan of care reviewed with Tereza TURNER.
[2018-05-02] MEDS: morphine 10mg/0.5ml (conc. morphine) oral syringe PO SCH ×4 (02:12→20:43)
[2018-05-02 06:00] VITALS: BP 92/64
--- NOTE | 2018-05-02 06:18 | NUR ---
REPORT GIVEN TO AMADOU TURNER
[2018-05-02] MEDS: nystatin 15 GM powder TP SCH ×3 (07:25→20:48)
[2018-05-02] MEDS: ondansetron 4mg rapidly disintigrating tab PO PRN (08:01)
--- NOTE | 2018-05-02 18:00 | NUR ---
Problems reprioritized. Patient report given, questions answered & plan of care reviewed with Tereza TURNER.
--- NOTE | 2018-05-02 18:12 | NUR ---
RECEIVED REPORT FROM AMADOU TURNER AND ASSUMED PATIENT CARE
[2018-05-03] MEDS: morphine 10mg/0.5ml (conc. morphine) oral syringe PO SCH ×4 (02:01→21:05)
[2018-05-03 06:00] VITALS: BP 89/59
--- NOTE | 2018-05-03 06:34 | NUR ---
REPORT GIVEN TO NICOLE TURNER
[2018-05-03 10:00] VITALS: BP 90/61
[2018-05-03] MEDS: nystatin 15 GM powder TP SCH ×3 (10:14→21:00)
--- NOTE | 2018-05-03 18:00 | NUR ---
Problems reprioritized. Patient report given, questions answered & plan of care reviewed with Maria Eugenia TURNER.
[2018-05-03 22:00] VITALS: BP 92/67
[2018-05-04] MEDS: morphine 10mg/0.5ml (conc. morphine) oral syringe PO SCH ×4 (02:55→20:02)
--- NOTE | 2018-05-04 06:05 | NUR ---
Patient in room ORTHO 4006. I have received report from JUSTINA TURNER and had the opportunity to ask questions and assume patient care.
[2018-05-04] MEDS: nystatin 15 GM powder TP SCH ×3 (09:48→20:02)
[2018-05-04 10:00] VITALS: BP 83/57
--- NOTE | 2018-05-04 18:35 | NUR ---
Problems reprioritized. Patient report given, questions answered & plan of care reviewed with TUNDE TURNER.
[2018-05-04 22:00] VITALS: BP 87/51
[2018-05-05] MEDS: morphine 10mg/0.5ml (conc. morphine) oral syringe PO SCH ×4 (02:00→21:03)
--- NOTE | 2018-05-05 06:25 | NUR ---
Patient in room ORTHO 4006. I have received report from jonathan and had the opportunity to ask questions and assume patient care. Addendum: 05/05/18 at 0628 by Tana Rodriguez RN TUNDE TURNER
[2018-05-05] MEDS: nystatin 15 GM powder TP SCH ×3 (07:20→21:03)
[2018-05-05 10:00] VITALS: BP 92/55
--- NOTE | 2018-05-05 18:25 | NUR ---
Problems reprioritized. Patient report given, questions answered & plan of care reviewed with GREGOR TURNER.
--- NOTE | 2018-05-05 18:26 | NUR ---
Patient in room ORTHO 4006. I have received report from JOHNNY Fajardo and had the opportunity to ask questions and assume patient care.
[2018-05-05 22:00] VITALS: BP 86/64
[2018-05-06] MEDS: morphine 10mg/0.5ml (conc. morphine) oral syringe PO SCH ×4 (02:17→19:45)
--- NOTE | 2018-05-06 06:25 | NUR ---
Patient in room ORTHO 4006. I have received report from GREGOR TURNER and had the opportunity to ask questions and assume patient care.
--- NOTE | 2018-05-06 06:25 | NUR ---
Problems reprioritized. Patient report given, questions answered & plan of care reviewed with JOHNNY Fajardo.
[2018-05-06] MEDS: nystatin 15 GM powder TP SCH ×3 (08:15→19:45)
[2018-05-06 10:00] VITALS: BP 88/59
--- NOTE | 2018-05-06 13:24 | NUR ---
Pt comfort care. Will follow per protocol Addendum: 05/06/18 at [address] Amended: Links added.
--- NOTE | 2018-05-06 18:00 | NUR ---
Problems reprioritized. Patient report given, questions answered & plan of care reviewed with TIARA TURNER.
--- NOTE | 2018-05-06 18:18 | NUR ---
Patient in room ORTHO 4006. I have received report from JOHNNY Fajardo and had the opportunity to ask questions and assume patient care.
--- NOTE | 2018-05-06 19:49 | NUR ---
Just changed so applied nystatin now
[2018-05-06 22:00] VITALS: BP 85/53
[2018-05-07] MEDS: morphine 10mg/0.5ml (conc. morphine) oral syringe PO SCH ×4 (01:41→19:45)
--- NOTE | 2018-05-07 06:20 | NUR ---
Problems reprioritized. Patient report given, questions answered & plan of care reviewed with JOHNNY LAGUNAS.
--- NOTE | 2018-05-07 06:24 | NUR ---
received report from radha rn
[2018-05-07] MEDS: nystatin 15 GM powder TP SCH ×3 (08:35→19:45)
[2018-05-07 11:00] VITALS: BP 95/56
[2018-05-07] MEDS: ondansetron 4mg rapidly disintigrating tab PO PRN (14:16)
--- NOTE | 2018-05-07 18:20 | NUR ---
gave report to page franklin
--- NOTE | 2018-05-07 18:30 | NUR ---
Patient in room ORTHO 4006. I have received report from JOHNNY LAGUNAS and had the opportunity to ask questions and assume patient care.
[2018-05-07 22:00] VITALS: BP 92/56
[2018-05-08] MEDS: morphine 10mg/0.5ml (conc. morphine) oral syringe PO SCH ×4 (01:22→21:14)
--- NOTE | 2018-05-08 06:08 | NUR ---
received report from page franklin
--- NOTE | 2018-05-08 06:20 | NUR ---
Problems reprioritized. Patient report given, questions answered & plan of care reviewed with JOHNNY LAGUNAS.
[2018-05-08] MEDS: furosemide 20MG tablet PO SCH (07:56)
[2018-05-08] MEDS: nystatin 15 GM powder TP SCH ×3 (07:58→21:14)
[2018-05-08 10:00] VITALS: BP 89/60
--- NOTE | 2018-05-08 18:10 | NUR ---
Received report from Amy TURNER, assumed care of patient.
--- NOTE | 2018-05-08 18:12 | NUR ---
GAVE REPORT TO ETHAN Ballesteros RN
[2018-05-08 22:00] VITALS: BP 90/60
[2018-05-09] MEDS: morphine 10mg/0.5ml (conc. morphine) oral syringe PO SCH ×4 (02:00→20:00)
--- NOTE | 2018-05-09 06:15 | NUR ---
Report given to Volodymyr TURNER.
--- NOTE | 2018-05-09 06:27 | NUR ---
Patient in room ORTHO 4006. I have received report from Ashly Ballesteros RN and had the opportunity to ask questions and assume patient care.
[2018-05-09 07:28] VITALS: BP 92/54
[2018-05-09] MEDS: furosemide 20MG tablet PO SCH (07:28)
[2018-05-09] MEDS: nystatin 15 GM powder TP SCH ×3 (07:31→21:00)
[2018-05-09 10:21] VITALS: BP 81/55
--- NOTE | 2018-05-09 17:56 | NUR ---
Problems reprioritized. Patient report given, questions answered & plan of care reviewed with [].
--- NOTE | 2018-05-09 18:17 | NUR ---
RECEIVED REPORT FROM REIJ TURNER AND ASSUMED PATIENT CARE
[2018-05-09 22:00] VITALS: BP 86/46
[2018-05-10] MEDS: morphine 10mg/0.5ml (conc. morphine) oral syringe PO SCH ×4 (02:00→17:14)
[2018-05-10] MEDS: LORazepam 1 MG tablet PO PRN (05:00)
--- NOTE | 2018-05-10 06:05 | NUR ---
REPORT GIVEN TO AMADOU TURNER
[2018-05-10] MEDS: furosemide 20MG tablet PO SCH (07:05)
[2018-05-10] MEDS: nystatin 15 GM powder TP SCH ×3 (07:07→21:00)
[2018-05-10 10:00] VITALS: BP 87/58
[2018-05-10] MEDS: ondansetron 4mg rapidly disintigrating tab PO PRN ×2 (10:51→17:14)
--- NOTE | 2018-05-10 18:24 | NUR ---
Problems reprioritized. Patient report given, questions answered & plan of care reviewed with Tereza TURNER.
--- NOTE | 2018-05-10 18:34 | NUR ---
RECEIVED REPORT FROM AMADOU TURNER AND ASSUMED PATIENT CARE
--- NOTE | 2018-05-10 20:33 | NUR ---
PATIENT REFUSED ROXENOL. STATES, "HE JUST GOT TWO DOSES." EXPLAINED TO PATIENT IF HE WANTS DOSE HE CAN HAVE IT AND TO LET ME KNOW. WILL CONTINUE TO MONITOR. PATIENT APPEARS TIRED TONIGHT.
[2018-05-10 22:00] VITALS: BP 90/59
[2018-05-11] MEDS: ondansetron 4mg rapidly disintigrating tab PO PRN (01:58)
[2018-05-11] MEDS: morphine 10mg/0.5ml (conc. morphine) oral syringe PO SCH ×4 (01:58→20:31)
--- NOTE | 2018-05-11 06:13 | NUR ---
REPORT GIVEN TO AMADOU TURNER
[2018-05-11] MEDS: furosemide 20MG tablet PO SCH (07:05)
[2018-05-11] MEDS: nystatin 15 GM powder TP SCH ×3 (07:08→20:36)
[2018-05-11 10:00] VITALS: BP 79/57
--- NOTE | 2018-05-11 18:18 | NUR ---
Problems reprioritized. Patient report given, questions answered & plan of care reviewed with Ashly Payton RN.
--- NOTE | 2018-05-11 18:30 | NUR ---
Patient in room ORTHO 4006. I have received report from JOHNNY Alicia and had the opportunity to ask questions and assume patient care. Patient awake and alert. No c/o pain at this time.
[2018-05-11 22:00] VITALS: BP 90/57
[2018-05-12] MEDS: morphine 10mg/0.5ml (conc. morphine) oral syringe PO SCH ×4 (02:06→19:58)
--- NOTE | 2018-05-12 06:10 | NUR ---
Patient in room ORTHO 4006. I have received report from Ashly Brody and had the opportunity to ask questions and assume patient care.
--- NOTE | 2018-05-12 06:47 | NUR ---
Problems reprioritized. Patient report given, questions answered & plan of care reviewed with JOHNNY Cervantes.
[2018-05-12 10:00] VITALS: BP 85/59
[2018-05-12] MEDS: furosemide 20MG tablet PO SCH (10:02)
[2018-05-12] MEDS: nystatin 15 GM powder TP SCH ×3 (10:02→19:19)
[2018-05-12] MEDS: ondansetron 4mg rapidly disintigrating tab PO PRN (12:23)
--- NOTE | 2018-05-12 16:37 | NUR ---
Pt has been made DNR w/ comfort care. [facility] 05/11. Will follow per protocol. Addendum: 05/12/18 at [address] Amended: Links added.
--- NOTE | 2018-05-12 18:15 | NUR ---
Problems reprioritized. Patient report given, questions answered & plan of care reviewed with Ashly Hawkins
--- NOTE | 2018-05-12 18:27 | NUR ---
Patient in room ORTHO 4006. I have received report from JOHNNY Cervantes and had the opportunity to ask questions and assume patient care.
[2018-05-12 22:00] VITALS: BP 83/49
[2018-05-13] MEDS: morphine 10mg/0.5ml (conc. morphine) oral syringe PO SCH ×5 (02:00→20:15)
[2018-05-13] MEDS: furosemide 20MG tablet PO SCH (08:48)
[2018-05-13] MEDS: nystatin 15 GM powder TP SCH ×3 (08:50→20:18)
[2018-05-13 10:00] VITALS: BP 87/58
[2018-05-13 10:59] LABS: BASOPHILS % (AUTO) 0.3 % (0-1); EOSINOPHILS # (AUTO) 0.1 X10'3 (0-0.9); LYMPHOCYTES # (AUTO) 0.4 X10'3 (1.1-4.8); LYMPHOCYTES % (AUTO) 10.9 % (21-51); MEAN CORPUSCULAR HEMOGLOBIN 27.5 PG (27.0-31.0); MEAN CORPUSCULAR HGB CONC 31.7 % (33.0-36.5); MEAN CORPUSCULAR VOLUME 86.9 FL (78-98); MEAN PLATELET VOLUME 6.5 FL (7.4-10.4); MONOCYTES # (AUTO) 0.2 X10'3 (0-0.9); MONOCYTES % (AUTO) 5.7 % (2-12); NEUTROPHILS # (AUTO) 2.9 X10'3 (1.8-7.7); NEUTROPHILS % (AUTO) 80.1 % (42-75); PLATELET COUNT 65 X10'3 (140-440); RED BLOOD COUNT 2.26 X10'6 (4.70-6.10); RED CELL DISTRIBUTION WIDTH 14.5 % (11.5-14.5); WHITE BLOOD COUNT 3.6 X10'3 (4.5-11.0)
[2018-05-13 11:26] LABS: HEMATOCRIT 19.6 % (42.0-52.0); HEMOGLOBIN 6.2 g/dl (14.0-17.9)
[2018-05-13 11:30] LABS: ALANINE AMINOTRANSFERASE 15 U/L (12-78); ALBUMIN 0.8 G/DL (3.4-5.0); ALBUMIN/GLOBULIN RATIO 0.1 (1.1-1.5); ALKALINE PHOSPHATASE 155 IU/L (46-116); ANION GAP 7 (8-16); ASPARTATE AMINO TRANSFERASE 24 U/L (10-37); BILIRUBIN,TOTAL 0.4 MG/DL (0.1-1.0); BLOOD UREA NITROGEN 38 MG/DL (7-18); BUN/CREATININE RATIO 15.1 (5.4-32.0); CHLORIDE 101 MMOL/L (99-107); CREATININE 2.51 MG/DL (0.60-1.10); GLUCOSE 108 MG/DL (70-104); POTASSIUM 3.8 MMOL/L (3.5-5.1); SODIUM 133 MMOL/L (135-145); TOTAL CARBON DIOXIDE 24.6 MMOL/L (24-32); TOTAL PROTEIN 6.4 G/DL (6.4-8.2); eGFR 26 ML/MIN
--- NOTE | 2018-05-13 11:30 | NUR ---
Paged Dr. Rogers: MESSAGE: [phone]. Arian Humphrey. Critical lab, hemoglobin 6.2 hemotcrit 19.6 Prior comfort care patient. [place] [phone]
[2018-05-13 16:06] VITALS: BP 80/56
[2018-05-13 16:23] VITALS: BP 89/61
--- NOTE | 2018-05-13 17:30 | NUR ---
Patients IV came out while blood was transfusing. Patient is a hard stick for IV's, brittle veins. Called ER and ICU to get a nurse to insert another IV. All attempts were failed. Patient received estimation of 125 ml of PRBC's
--- NOTE | 2018-05-13 18:00 | NUR ---
Problems reprioritized. Patient report given, questions answered & plan of care reviewed with Ashly Payton RN.
--- NOTE | 2018-05-13 18:30 | NUR ---
Patient in room ORTHO 4006. I have received report from JOHNNY Levin and had the opportunity to ask questions and assume patient care. ICU nurse in room trying to place new PIV at this time
[2018-05-13] MEDS: pantoprazole 40 MG vial IV SCH (20:00)
[2018-05-13] MEDS: lactulose 20gm/30ml cup PO SCH (20:14)
[2018-05-13 21:58] VITALS: BP 88/57
--- NOTE | 2018-05-13 22:00 | NUR ---
Nursing able to place piv in abdomen. New order for another bag of PRBC to replace wasted unit. Took blood and tubing to lab and got replacement to start transfusion. Patient tolerating well.
[2018-05-13 22:12] VITALS: BP 91/58
[2018-05-13 23:15] VITALS: BP 98/62
[2018-05-14] VITALS (7 sets, daily range): BP systolic 88–103; BP diastolic 55–68
[2018-05-14] MEDS: morphine 10mg/0.5ml (conc. morphine) oral syringe PO PRN (00:38)
[2018-05-14] MEDS: morphine 10mg/0.5ml (conc. morphine) oral syringe PO SCH ×4 (02:00→20:24)
--- NOTE | 2018-05-14 06:52 | NUR ---
6Problems reprioritized. Patient report given, questions answered & plan of care reviewed with JOHNNY Valencia.
[2018-05-14 06:55] LABS: BASOPHILS % (AUTO) 0.5 % (0-1); EOSINOPHILS # (AUTO) 0.1 X10'3 (0-0.9); EOSINOPHILS % (AUTO) 3.4 % (0-6); HEMATOCRIT 24.4 % (42.0-52.0); HEMOGLOBIN 8.1 g/dl (14.0-17.9); LYMPHOCYTES # (AUTO) 0.6 X10'3 (1.1-4.8); LYMPHOCYTES % (AUTO) 14.8 % (21-51); MEAN CORPUSCULAR HEMOGLOBIN 28.8 PG (27.0-31.0); MEAN CORPUSCULAR HGB CONC 33.2 % (33.0-36.5); MEAN CORPUSCULAR VOLUME 86.9 FL (78-98); MEAN PLATELET VOLUME 6.2 FL (7.4-10.4); MONOCYTES # (AUTO) 0.3 X10'3 (0-0.9); MONOCYTES % (AUTO) 7.6 % (2-12); NEUTROPHILS # (AUTO) 2.8 X10'3 (1.8-7.7); NEUTROPHILS % (AUTO) 73.7 % (42-75); PLATELET COUNT 57 X10'3 (140-440); RED BLOOD COUNT 2.81 X10'6 (4.70-6.10); RED CELL DISTRIBUTION WIDTH 13.6 % (11.5-14.5); WHITE BLOOD COUNT 3.9 X10'3 (4.5-11.0)
[2018-05-14] MEDS: lactulose 20gm/30ml cup PO SCH ×2 (08:49→20:23)
[2018-05-14] MEDS: furosemide 20MG tablet PO SCH (08:49)
[2018-05-14] MEDS: pantoprazole 40 MG vial IV SCH (08:49)
[2018-05-14] MEDS: nystatin 15 GM powder TP SCH ×3 (08:51→20:33)
--- NOTE | 2018-05-14 14:00 | NUR ---
PATIENT REFUSED 1400 DOSE OF ROXANOL DROPS AND STATES THAT HE IS NOT EXPERIENCING TOO MUCH PAIN AT THIS TIME. PATIENT STATES THAT HE WILL LET NURSE KNOW WHEN HE NEEDS PAIN MEDICATION.
--- NOTE | 2018-05-14 18:01 | NUR ---
PATIENT HAD BM EARLIER AND OPTIFOAM DRESSING CAME OFF. COCCYX ASSESSED FOR 2 SMALL OPEN AREAS, APPROX. .5 CM DIAM, NON-DRAINING. NEW OPTIFOAM APPLIED AND SECURED.
--- NOTE | 2018-05-14 18:10 | NUR ---
Received report from Annie TURNER. Assumed care of patient.
--- NOTE | 2018-05-14 18:30 | NUR ---
Problems reprioritized. Patient report given, questions answered & plan of care reviewed with JOHNNY LONG.
[2018-05-14] MEDS: pantoprazole 40mg Tablet.DR PO SCH (20:23)
--- NOTE | 2018-05-14 23:36 | NUR ---
Notified MD [place] Pt pulled out IV. okay with leave IV out at this time.
[2018-05-15] MEDS: morphine 10mg/0.5ml (conc. morphine) oral syringe PO SCH ×4 (02:08→20:00)
[2018-05-15 06:00] VITALS: BP 107/64
--- NOTE | 2018-05-15 06:24 | NUR ---
Report given to Juliann TURNER.
[2018-05-15 07:22] LABS: ALBUMIN 0.8 G/DL (3.4-5.0); ANION GAP 7 (8-16); BLOOD UREA NITROGEN 35 MG/DL (7-18); BUN/CREATININE RATIO 15.3 (5.4-32.0); CALCIUM 7.7 MG/DL (8.5-10.1); CHLORIDE 103 MMOL/L (99-107); CREATININE 2.29 MG/DL (0.60-1.10); GLUCOSE 80 MG/DL (70-104); POTASSIUM 3.9 MMOL/L (3.5-5.1); SODIUM 134 MMOL/L (135-145); TOTAL CARBON DIOXIDE 23.6 MMOL/L (24-32); eGFR 29 ML/MIN
[2018-05-15] MEDS: nystatin 15 GM powder TP SCH ×2 (09:30→13:00)
[2018-05-15] MEDS: furosemide 20MG tablet PO SCH (09:32)
[2018-05-15] MEDS: pantoprazole 40mg Tablet.DR PO SCH ×2 (09:32→19:47)
[2018-05-15] MEDS: lactulose 20gm/30ml cup PO SCH ×4 (09:32→19:47)
[2018-05-15 10:30] VITALS: BP 90/60
--- NOTE | 2018-05-15 18:34 | NUR ---
Report to Ashly Payton RN
[2018-05-15] MEDS: albumin (Human) 5% 250ml 250 ML IV SCH ×2 (19:46→20:00)
[2018-05-16] MEDS: albumin (Human) 5% 250ml 250 ML IV SCH ×3 (00:23→20:00)
[2018-05-16] MEDS: morphine 10mg/0.5ml (conc. morphine) oral syringe PO SCH ×4 (01:29→20:33)
[2018-05-16 02:00] VITALS: BP 92/62
--- NOTE | 2018-05-16 06:30 | NUR ---
Patient in room ORTHO 4006. I have received report from Ashly Payton RN and had the opportunity to ask questions and assume patient care.
[2018-05-16] MEDS: lactulose 20gm/30ml cup PO SCH ×4 (09:17→20:36)
[2018-05-16] MEDS: furosemide 20MG tablet PO SCH (09:17)
[2018-05-16] MEDS: pantoprazole 40mg Tablet.DR PO SCH ×2 (09:17→20:32)
[2018-05-16] MEDS: ondansetron 4mg rapidly disintigrating tab PO PRN (09:34)
[2018-05-16 10:00] VITALS: BP 82/54
[2018-05-16] MEDS ORDERED: LIDOcaine 2% 10ml TOPICAL JELLY (Urojet) MM ONE (14:50)
[2018-05-16 18:00] VITALS: BP 83/57
--- NOTE | 2018-05-16 18:26 | NUR ---
Patient in room ORTHO 4006. I have received report from Renu TURNER and had the opportunity to ask questions and assume patient care.
--- NOTE | 2018-05-16 20:39 | NUR ---
Patient refusing to try for a new IV at this time. Patient has no IV access. Educated on the importance of needing albumin at this time but patient still refused IV placement.
[2018-05-16 22:00] VITALS: BP 86/55
[2018-05-17] MEDS: morphine 10mg/0.5ml (conc. morphine) oral syringe PO SCH ×4 (02:28→19:35)
[2018-05-17] MEDS: albumin (Human) 5% 250ml 250 ML IV SCH ×3 (02:39→19:34)
[2018-05-17 06:00] VITALS: BP 86/54
--- NOTE | 2018-05-17 06:22 | NUR ---
Problems reprioritized. Patient report given, questions answered & plan of care reviewed with Renu TURNER.
--- NOTE | 2018-05-17 06:23 | NUR ---
Patient in room ORTHO 4006. I have received report from JOHNNY Mercedes and had the opportunity to ask questions and assume patient care.
[2018-05-17] MEDS: lactulose 20gm/30ml cup PO SCH ×4 (08:45→20:54)
[2018-05-17] MEDS: pantoprazole 40mg Tablet.DR PO SCH ×2 (08:45→19:34)
[2018-05-17] MEDS: furosemide 20MG tablet PO SCH (08:46)
[2018-05-17 10:00] VITALS: BP 89/45
--- NOTE | 2018-05-17 18:00 | NUR ---
Refused 1800 vitals
--- NOTE | 2018-05-17 18:26 | NUR ---
Patient in room ORTHO 4006. I have received report from Renu TURNER and had the opportunity to ask questions and assume patient care.
[2018-05-17 22:00] VITALS: BP 90/47
[2018-05-18] MEDS: morphine 10mg/0.5ml (conc. morphine) oral syringe PO SCH ×4 (01:44→20:32)
[2018-05-18 06:00] VITALS: BP 91/50
--- NOTE | 2018-05-18 06:00 | NUR ---
Patient in room ORTHO 4006. I have received report from Mago TURNER and had the opportunity to ask questions and assume patient care.
--- NOTE | 2018-05-18 06:33 | NUR ---
Problems reprioritized. Patient report given, questions answered & plan of care reviewed with Poonam TURNER.
[2018-05-18] MEDS: lactulose 20gm/30ml cup PO SCH ×4 (08:31→20:31)
[2018-05-18] MEDS: pantoprazole 40mg Tablet.DR PO SCH ×2 (08:31→20:31)
[2018-05-18] MEDS: furosemide 20MG tablet PO SCH (08:31)
[2018-05-18 10:00] VITALS: BP 85/55
[2018-05-18] MEDS: albumin (Human) 5% 250ml 250 ML IV SCH ×2 (10:08→20:00)
[2018-05-18 18:00] VITALS: BP 91/53
--- NOTE | 2018-05-18 18:14 | NUR ---
Problems reprioritized. Patient report given, questions answered & plan of care reviewed with Mago TURNER.
--- NOTE | 2018-05-18 18:20 | NUR ---
Patient in room ORTHO 4006. I have received report from Poonam TURNER and had the opportunity to ask questions and assume patient care.
--- NOTE | 2018-05-18 19:59 | NUR ---
Patient is refusing for koch catheter to come out. Patient not on comfort care but states he doesn't want the catheter to come out. Attempted an IV twice and unable to obtain. Patient is a difficult IV stick. Will have another nurse attempt later.
[2018-05-18 22:00] VITALS: BP 97/64
[2018-05-19] MEDS: morphine 10mg/0.5ml (conc. morphine) oral syringe PO SCH ×5 (02:20→20:18)
[2018-05-19] MEDS: albumin (Human) 5% 250ml 250 ML IV SCH ×3 (03:07→20:17)
[2018-05-19 05:00] VITALS: BP 87/55
--- NOTE | 2018-05-19 06:24 | NUR ---
Problems reprioritized. Patient report given, questions answered & plan of care reviewed with Judit TURNER.
[2018-05-19] MEDS: lactulose 20gm/30ml cup PO SCH ×4 (08:53→20:16)
[2018-05-19] MEDS: pantoprazole 40mg Tablet.DR PO SCH ×2 (08:54→20:17)
[2018-05-19] MEDS: furosemide 20MG tablet PO SCH (08:54)
[2018-05-19 10:00] VITALS: BP 84/62
--- NOTE | 2018-05-19 14:28 | NUR ---
Reassessment: Patient's code status has been changed to DNR. Pt with hepatic encephalopathy with elevated ammonia, improving per MD notes. Pt on regular diet with increasing PO intake, previously 25%, now averaging 50% and endorsing hunger per MD notes. Pt with no N/V per MD notes. [facility] 05/19. Will continue to follow and monitor need for ONS. Recommendations: 1) Continue with regular diet 2) Monitor need for ONS 3) Wt per rx Addendum: 05/19/18 at [address] Amended: Links added.
[2018-05-19 18:00] VITALS: BP 90/56
--- NOTE | 2018-05-19 18:30 | NUR ---
Patient in room ORTHO 4006. I have received report from JOHNNY Spain and had the opportunity to ask questions and assume patient care.
--- NOTE | 2018-05-19 18:42 | NUR ---
Problems reprioritized. Patient report given, questions answered & plan of care reviewed with Cherelle TURNER.
[2018-05-19 22:00] VITALS: BP 88/59
[2018-05-20] MEDS: morphine 10mg/0.5ml (conc. morphine) oral syringe PO SCH ×4 (02:15→20:28)
[2018-05-20 05:00] VITALS: BP 87/57
--- NOTE | 2018-05-20 06:23 | NUR ---
Problems reprioritized. Patient report given, questions answered & plan of care reviewed with JOHNNY Spain.
[2018-05-20] MEDS: lactulose 20gm/30ml cup PO SCH ×4 (08:33→20:27)
[2018-05-20] MEDS: furosemide 20MG tablet PO SCH (08:33)
[2018-05-20] MEDS: albumin (Human) 5% 250ml 250 ML IV SCH ×2 (08:33→20:27)
[2018-05-20] MEDS: pantoprazole 40mg Tablet.DR PO SCH ×2 (08:33→20:28)
[2018-05-20 10:00] VITALS: BP 99/64
[2018-05-20 18:00] VITALS: BP 104/61
--- NOTE | 2018-05-20 18:04 | NUR ---
Problems reprioritized. Patient report given, questions answered & plan of care reviewed with Cherelle TURNER.
[2018-05-20 22:00] VITALS: BP 95/63
[2018-05-21] MEDS: morphine 10mg/0.5ml (conc. morphine) oral syringe PO SCH ×2 (02:00→08:36)
[2018-05-21] MEDS: ondansetron 4mg rapidly disintigrating tab PO PRN ×2 (05:58→22:45)
[2018-05-21 06:00] VITALS: BP 92/61
--- NOTE | 2018-05-21 06:10 | NUR ---
Problems reprioritized. Patient report given, questions answered & plan of care reviewed with JOHNNY Helm.
--- NOTE | 2018-05-21 06:42 | NUR ---
Patient in room ORTHO 4006. I have received report from Nimco TURNER and had the opportunity to ask questions and assume patient care.
[2018-05-21 08:00] VITALS: BP 93/56
[2018-05-21] MEDS: furosemide 20MG tablet PO SCH (08:00)
[2018-05-21] MEDS: albumin (Human) 5% 250ml 250 ML IV SCH ×2 (08:34→20:52)
[2018-05-21] MEDS: lactulose 20gm/30ml cup PO SCH ×4 (08:35→20:51)
[2018-05-21] MEDS: pantoprazole 40mg Tablet.DR PO SCH ×2 (08:36→20:51)
[2018-05-21 10:00] VITALS: BP 101/64
[2018-05-21 18:00] VITALS: BP 100/65
--- NOTE | 2018-05-21 18:05 | NUR ---
Problems reprioritized. Patient report given, questions answered & plan of care reviewed with Kajal TURNER.
--- NOTE | 2018-05-21 19:04 | NUR ---
REPORT REC'D FROM JOHNNY MENDOZA.
[2018-05-21 23:00] VITALS: BP 102/63
[2018-05-22] VITALS (19 sets, daily range): BP systolic 86–105; BP diastolic 54–64
[2018-05-22] MEDS: HYDROcodone/acetaminophen 5mg/325mg tablet PO PRN ×4 (03:05→19:27)
--- NOTE | 2018-05-22 06:25 | NUR ---
REPORT GIVEN TO JOHNNY LOBO.
[2018-05-22 06:49] LABS: BASOPHILS % (AUTO) 0.2 % (0-1); EOSINOPHILS # (AUTO) 0.1 X10'3 (0-0.9); EOSINOPHILS % (AUTO) 3.3 % (0-6); LYMPHOCYTES # (AUTO) 0.3 X10'3 (1.1-4.8); LYMPHOCYTES % (AUTO) 9.4 % (21-51); MEAN CORPUSCULAR HEMOGLOBIN 28.2 PG (27.0-31.0); MEAN CORPUSCULAR VOLUME 85.6 FL (78-98); MEAN PLATELET VOLUME 6.1 FL (7.4-10.4); MONOCYTES # (AUTO) 0.3 X10'3 (0-0.9); NEUTROPHILS # (AUTO) 2.6 X10'3 (1.8-7.7); NEUTROPHILS % (AUTO) 79.1 % (42-75); RED CELL DISTRIBUTION WIDTH 15.5 % (11.5-14.5); WHITE BLOOD COUNT 3.3 X10'3 (4.5-11.0)
[2018-05-22 07:00] LABS: HEMOGLOBIN 5.9 g/dl (14.0-17.9)
[2018-05-22 07:01] LABS: ALANINE AMINOTRANSFERASE 13 U/L (12-78); ALBUMIN 1.6 G/DL (3.4-5.0); ALBUMIN/GLOBULIN RATIO 0.4 (1.1-1.5); ALKALINE PHOSPHATASE 124 IU/L (46-116); ANION GAP 11 (8-16); ASPARTATE AMINO TRANSFERASE 20 U/L (10-37); BILIRUBIN,TOTAL 0.6 MG/DL (0.1-1.0); BLOOD UREA NITROGEN 18 MG/DL (7-18); BUN/CREATININE RATIO 9.1 (5.4-32.0); CALCIUM 6.8 MG/DL (8.5-10.1); CHLORIDE 106 MMOL/L (99-107); CREATININE 1.98 MG/DL (0.60-1.10); GLUCOSE 94 MG/DL (70-104); PLATELET COUNT 50 X10'3 (140-440); POTASSIUM 3.3 MMOL/L (3.5-5.1); SODIUM 138 MMOL/L (135-145); TOTAL CARBON DIOXIDE 21.2 MMOL/L (24-32); TOTAL PROTEIN 5.8 G/DL (6.4-8.2); eGFR 34 ML/MIN
[2018-05-22] MEDS: lactulose 20gm/30ml cup PO SCH ×4 (07:44→20:37)
[2018-05-22] MEDS: furosemide 20MG tablet PO SCH (07:44)
[2018-05-22] MEDS: pantoprazole 40mg Tablet.DR PO SCH ×3 (07:45→19:23)
[2018-05-22] MEDS: albumin (Human) 5% 250ml 250 ML IV SCH ×2 (07:47→19:32)
[2018-05-22 07:51] LABS: PLATELET ESTIMATE DECREASED
[2018-05-22 07:52] LABS: ANISOCYTOSIS 1+; HYPOCHROMASIA 1+; TARGET CELLS FEW
[2018-05-22] MEDS ORDERED: LIDOcaine 1%/PF 5ML 10 MG/ML VIAL ONE (09:57)
[2018-05-22] MEDS ORDERED: fentaNYL/PF 50MCG/1 ML 2ML syringe ONE (16:39)
[2018-05-22] MEDS ORDERED: MIDAZolam 5mg/5ml vial ONE (16:40)
[2018-05-22] MEDS ORDERED: LIDOcaine Viscous 15ml cup ONE (16:40)
--- NOTE | 2018-05-22 18:47 | NUR ---
Report received from Yvette TURNER, assumed care of patient.
--- NOTE | 2018-05-23 06:12 | NUR ---
Report given to Yvette TURNER.
[2018-05-23] MEDS: pantoprazole 40mg Tablet.DR PO SCH ×3 (07:00→17:02)
[2018-05-23 07:24] VITALS: BP 88/56
[2018-05-23] MEDS ORDERED: carvedilol 6.25mg tablet PO SCH (08:00)
[2018-05-23] MEDS: furosemide 20MG tablet PO SCH (08:43)
[2018-05-23] MEDS: lactulose 20gm/30ml cup PO SCH ×4 (08:43→21:00)
[2018-05-23] MEDS: HYDROcodone/acetaminophen 5mg/325mg tablet PO PRN ×3 (08:43→19:19)
[2018-05-23] MEDS: fluconazole 100mg tablet PO SCH (08:44)
[2018-05-23] MEDS: albumin (Human) 5% 250ml 250 ML IV SCH ×2 (08:45→18:52)
[2018-05-23 10:49] LABS: BASOPHILS % (AUTO) 0.1 % (0-1); EOSINOPHILS % (AUTO) 1.4 % (0-6); HEMATOCRIT 24.2 % (42.0-52.0); LYMPHOCYTES # (AUTO) 0.2 X10'3 (1.1-4.8); LYMPHOCYTES % (AUTO) 5.9 % (21-51); MEAN CORPUSCULAR HEMOGLOBIN 28.6 PG (27.0-31.0); MEAN CORPUSCULAR HGB CONC 33.2 % (33.0-36.5); MEAN CORPUSCULAR VOLUME 86.3 FL (78-98); MEAN PLATELET VOLUME 6.4 FL (7.4-10.4); MONOCYTES # (AUTO) 0.2 X10'3 (0-0.9); MONOCYTES % (AUTO) 6.4 % (2-12); NEUTROPHILS % (AUTO) 86.2 % (42-75); RED BLOOD COUNT 2.81 X10'6 (4.70-6.10); RED CELL DISTRIBUTION WIDTH 15.7 % (11.5-14.5); WHITE BLOOD COUNT 3.5 X10'3 (4.5-11.0)
[2018-05-23 10:52] LABS: PLATELET COUNT 48 X10'3 (140-440)
[2018-05-23 11:52] VITALS: BP 98/56
[2018-05-23] MEDS: spironolactone 50 MG tablet PO SCH (14:18)
[2018-05-23 18:00] VITALS: BP 92/61
[2018-05-23] MEDS: carVEDilol 3.125mg tablet PO SCH (18:48)
--- NOTE | 2018-05-23 20:50 | NUR ---
noted pt has decreased bp, no sxs distress at this time. encouraged pt to use urinal instead of incontinence. urinal w/in reach. pt req norco as often as possible. educated pt that pain meds are prn and when able they will be given. verbalized understanding.
[2018-05-23 22:00] VITALS: BP 85/53
[2018-05-24] MEDS: HYDROcodone/acetaminophen 5mg/325mg tablet PO PRN ×4 (05:16→21:45)
[2018-05-24 05:36] VITALS: BP 90/70
--- NOTE | 2018-05-24 06:37 | NUR ---
reported to days. noted pt low BP and order for BID coreg. rivera XIONG to re-evaluate beta mary with decreased BP. anticipate discharge to [facility] soon.
[2018-05-24] MEDS: furosemide 40mg tablet PO SCH (08:00)
[2018-05-24] MEDS: fluconazole 100mg tablet PO SCH (08:01)
[2018-05-24] MEDS: pantoprazole 40mg Tablet.DR PO SCH ×2 (08:01→17:07)
[2018-05-24] MEDS: lactulose 20gm/30ml cup PO SCH ×4 (08:02→21:00)
[2018-05-24] MEDS: albumin (Human) 5% 250ml 250 ML IV SCH ×2 (08:03→20:14)
[2018-05-24] MEDS: spironolactone 50 MG tablet PO SCH (08:30)
[2018-05-24 10:00] VITALS: BP 92/62
--- NOTE | 2018-05-24 11:20 | NUR ---
Reassessment: Per MD notes pt s/p paracentesis with 10L ascitic fluid removed. Documented PO intake 100% on regular diet meeting nutrient needs at this time. [facility] 05/22. Will continue to follow. Recommendations: 1) Continue with regular diet 2) Monitor need for additional bowel care 3) Wt per rx Addendum: 05/24/18 at [address] Amended: Links added.
[2018-05-24] MEDS: carVEDilol 3.125mg tablet PO SCH ×2 (12:44→20:00)
[2018-05-24 18:00] VITALS: BP 91/55
[2018-05-24 22:00] VITALS: BP 96/60
[2018-05-25] MEDS: HYDROcodone/acetaminophen 5mg/325mg tablet PO PRN ×5 (02:12→22:50)
[2018-05-25 06:00] VITALS: BP 86/54
[2018-05-25] MEDS: carVEDilol 3.125mg tablet PO SCH ×2 (08:00→20:00)
[2018-05-25] MEDS: furosemide 40mg tablet PO SCH (08:00)
[2018-05-25] MEDS: lactulose 20gm/30ml cup PO SCH ×5 (08:00→20:10)
[2018-05-25] MEDS: spironolactone 50 MG tablet PO SCH (08:30)
[2018-05-25] MEDS ORDERED: COR3.125T PO (08:44)
[2018-05-25] MEDS ORDERED: FERR325T28 PO (08:44)
[2018-05-25] MEDS ORDERED: LACT10SO PO (08:44)
[2018-05-25] MEDS ORDERED: PANT40TA4 PO (08:44)
[2018-05-25] MEDS ORDERED: SPIR50TA5 PO (08:44)
[2018-05-25] MEDS ORDERED: HYDR-4383 PO (08:44)
[2018-05-25] MEDS ORDERED: FURO40TA4 PO (08:44)
[2018-05-25] MEDS ORDERED: FLUC100T9 PO (08:44)
[2018-05-25 10:00] VITALS: BP 93/66
[2018-05-25] MEDS: pantoprazole 40mg Tablet.DR PO SCH ×2 (10:15→18:42)
[2018-05-25] MEDS: albumin (Human) 5% 250ml 250 ML IV SCH ×2 (10:16→20:09)
[2018-05-25] MEDS: fluconazole 100mg tablet PO SCH (10:17)
[2018-05-25 18:00] VITALS: BP 98/68
--- NOTE | 2018-05-25 18:40 | NUR ---
Received report from primary care nurse Ghazala TURNER. Assumed patient care. Patient is being changed by PCT and turned. In no apparent distress on room air. Call light and items of frequent use within reach. Will continue to monitor for changes.
[2018-05-25 22:00] VITALS: BP 94/61
[2018-05-26] MEDS: HYDROcodone/acetaminophen 5mg/325mg tablet PO PRN ×3 (04:09→15:14)
[2018-05-26 06:00] VITALS: BP 93/61
--- NOTE | 2018-05-26 06:38 | NUR ---
Reported off to Ghazala TURNER. Patient is resting with relaxed and unlabored respirations. On room air. In no apparent distress. Call light and items of frequent use within reach.
[2018-05-26] MEDS: furosemide 40mg tablet PO SCH (08:00)
[2018-05-26] MEDS: albumin (Human) 5% 250ml 250 ML IV SCH (08:00)
[2018-05-26] MEDS: lactulose 20gm/30ml cup PO SCH ×2 (08:00→13:00)
[2018-05-26] MEDS: carVEDilol 3.125mg tablet PO SCH (08:00)
[2018-05-26] MEDS: spironolactone 50 MG tablet PO SCH (08:30)
[2018-05-26] MEDS: pantoprazole 40mg Tablet.DR PO SCH (09:49)
[2018-05-26] MEDS: fluconazole 100mg tablet PO SCH (09:49)
[2018-05-26 10:00] VITALS: BP 94/60
== END 2018-05-26 17:00 | disposition home or self-care (01) | DRG 720 ==
LOC: ER 19:05 → ED HOLD 22:02 → EDBEDREQ 23:26 → ORTHO 4S 04-05 00:15 → CMPBEDREQ 04-05 00:30 → ORTHO 4S 04-06 00:20
PROVIDERS: ADMIT Family Medicine; ATTEND Internal Medicine
PROC: 0W9G3ZZ Drainage of Peritoneal Cavity, Percutaneous Approach (ICD-10-PCS; 2018-04-04)
PROC: 0W9G3ZZ Drainage of Peritoneal Cavity, Percutaneous Approach (ICD-10-PCS; 2018-04-07)
PROC: 0W9G3ZZ Drainage of Peritoneal Cavity, Percutaneous Approach (ICD-10-PCS; 2018-04-18)
PROC: 30233N1 Transfusion of Nonautologous Red Blood Cells into Peripheral Vein, Percutaneous Approach (ICD-10-PCS; 2018-05-13)
PROC: 30233N1 Transfusion of Nonautologous Red Blood Cells into Peripheral Vein, Percutaneous Approach (ICD-10-PCS; 2018-05-14)
PROC: 0DB58ZX Excision of Esophagus, Via Natural or Artificial Opening Endoscopic, Diagnostic (ICD-10-PCS; principal; 2018-05-22)
PROC: 30233N1 Transfusion of Nonautologous Red Blood Cells into Peripheral Vein, Percutaneous Approach (ICD-10-PCS; 2018-05-22)
PROC: 0W9G3ZZ Drainage of Peritoneal Cavity, Percutaneous Approach (ICD-10-PCS; 2018-05-22)
DX: A41.02 Sepsis due to Methicillin resistant Staphylococcus aureus (principal); I50.33 Acute on chronic diastolic (congestive) heart failure; J15.212 Pneumonia due to Methicillin resistant Staphylococcus aureus; B37.81 Candidal esophagitis; N17.9 Acute kidney failure, unspecified; K29.61 Other gastritis with bleeding; D68.9 Coagulation defect, unspecified; D62 Acute posthemorrhagic anemia; N18.3 Chronic kidney disease, stage 3 (moderate); D69.6 Thrombocytopenia, unspecified; F11.90 Opioid use, unspecified, uncomplicated; K31.89 Other diseases of stomach and duodenum; K42.9 Umbilical hernia without obstruction or gangrene; K70.31 Alcoholic cirrhosis of liver with ascites; F15.10 Other stimulant abuse, uncomplicated; K72.90 Hepatic failure, unspecified without coma; E87.6 Hypokalemia; K76.6 Portal hypertension; K80.20 Calculus of gallbladder without cholecystitis without obstruction; Z66 Do not resuscitate; E88.09 Other disorders of plasma-protein metabolism, not elsewhere classified; F10.10 Alcohol abuse, uncomplicated; Z59.0 Homelessness; Z82.49 Family history of ischemic heart disease and other diseases of the circulatory system; Z79.899 Other long term (current) drug therapy
CPT/HCPCS: 36415; 43239; 49083; 71045; 74176; 80048; 80053; 80202; 80305; 81001; 82042; 82140; 83605; 83615; 83735; 83880; 84100; 84145; 84157; 85025; 85610; 85730; 86885; 86900; 86901; 86920; 87040; 87070; 87075; 87077; 87186; 89051; 93005; 94760; 96365; 96375; 97110; 97116; 97161; 97530; 99152; 99285; A4620; C9113; G0378; J0696; J1650; J1940; J2001; J2060; J2250; J2270; J2405; J3010; J3370; J3490; J7030; P9016; P9045; P9047

== ENCOUNTER 2018-06-06 23:07 | Emergency (ER) | payer MEDICARE, MEDICAID ==
[~2018-06-06] VITALS: Ht 175.3 cm; Wt 75.0 kg
[~2018-06-06 23:07] MED LIST changes: +COR3.125T PO; +FLUC100T9 PO; -FURO-150 PO; +FURO40TA4 PO; +HYDR-4383 PO; -POTA10TA15 PO; -RIFA550T PO; -SPIR25TA5 PO; +SPIR50TA5 PO; -TRAM50TA2 PO
[2018-06-07 00:22] LABS: BASOPHILS % (AUTO) 0.1 % (0-1); EOSINOPHILS # (AUTO) 0.1 X10'3 (0-0.9); LYMPHOCYTES # (AUTO) 0.4 X10'3 (1.1-4.8); LYMPHOCYTES % (AUTO) 11.3 % (21-51); MEAN CORPUSCULAR HEMOGLOBIN 29.1 PG (27.0-31.0); MEAN CORPUSCULAR HGB CONC 33.5 % (33.0-36.5); MEAN CORPUSCULAR VOLUME 86.8 FL (78-98); MEAN PLATELET VOLUME 6.1 FL (7.4-10.4); MONOCYTES # (AUTO) 0.3 X10'3 (0-0.9); MONOCYTES % (AUTO) 8.6 % (2-12); NEUTROPHILS # (AUTO) 2.9 X10'3 (1.8-7.7); PLATELET COUNT 65 X10'3 (140-440); RED BLOOD COUNT 2.32 X10'6 (4.70-6.10); WHITE BLOOD COUNT 3.7 X10'3 (4.5-11.0)
[2018-06-07 00:25] LABS: ALANINE AMINOTRANSFERASE 15 U/L (12-78); ALBUMIN 1.7 G/DL (3.4-5.0); ALBUMIN/GLOBULIN RATIO 0.3 (1.1-1.5); ALKALINE PHOSPHATASE 169 IU/L (46-116); ANION GAP 11 (8-16); ASPARTATE AMINO TRANSFERASE 19 U/L (10-37); BILIRUBIN,TOTAL 0.8 MG/DL (0.1-1.0); BLOOD UREA NITROGEN 19 MG/DL (7-18); BUN/CREATININE RATIO 9.3 (5.4-32.0); CALCIUM 7.5 MG/DL (8.5-10.1); CHLORIDE 111 MMOL/L (99-107); CREATININE 2.05 MG/DL (0.60-1.10); GLUCOSE 83 MG/DL (70-104); POTASSIUM 5.4 MMOL/L (3.5-5.1); SODIUM 138 MMOL/L (135-145); TOTAL CARBON DIOXIDE 15.6 MMOL/L (24-32); TOTAL PROTEIN 7.1 G/DL (6.4-8.2); eGFR 33 ML/MIN
--- NOTE | 2018-06-07 00:28 | NUR ---
when asked if pt is still drinking alcohol, son in law states, he has a few beers every once in a while.
[2018-06-07 00:36] LABS: HEMATOCRIT 20.1 % (42.0-52.0); HEMOGLOBIN 6.8 g/dl (14.0-17.9)
--- NOTE | 2018-06-07 01:41 | NUR ---
patient had an incontinent bm, patient cleaned by bry mcadams and I,provided dry,clean pull up [facility] gown and patient is currently dry comfortable and changed in [facility] no observable s/s of acute stress at this time
[2018-06-07 03:09] VITALS: BP 112/57
[2018-06-07 03:24] VITALS: BP 104/66
[2018-06-07 04:20] VITALS: BP 113/70
[2018-06-07 04:47] VITALS: BP 113/70
[2018-06-07 04:49] VITALS: BP 113/70
== END 2018-06-07 05:05 | disposition home or self-care (01) ==
LOC: ER 23:08
DX: K70.9 Alcoholic liver disease, unspecified (principal); D64.9 Anemia, unspecified; N18.9 Chronic kidney disease, unspecified; F15.90 Other stimulant use, unspecified, uncomplicated; F11.90 Opioid use, unspecified, uncomplicated; R60.0 Localized edema; Z59.0 Homelessness; Z79.899 Other long term (current) drug therapy
CPT/HCPCS: 36415; 36430; 80053; 85025; 86885; 86900; 86901; 86920; 99285; P9016

== ENCOUNTER 2018-06-13 03:32 | Emergency (ER) | payer MEDICARE, MEDICAID ==
[~2018-06-13] VITALS: Ht 175.3 cm; Wt 85.9 kg
[2018-06-13 05:14] LABS: BASOPHILS % (AUTO) 0.1 % (0-1); EOSINOPHILS # (AUTO) 0.2 X10'3 (0-0.9); EOSINOPHILS % (AUTO) 2.8 % (0-6); HEMATOCRIT 22.9 % (42.0-52.0); HEMOGLOBIN 7.8 g/dl (14.0-17.9); LYMPHOCYTES # (AUTO) 0.3 X10'3 (1.1-4.8); LYMPHOCYTES % (AUTO) 4.4 % (21-51); MEAN CORPUSCULAR HGB CONC 34.1 % (33.0-36.5); MEAN CORPUSCULAR VOLUME 87.9 FL (78-98); MEAN PLATELET VOLUME 5.9 FL (7.4-10.4); MONOCYTES # (AUTO) 0.4 X10'3 (0-0.9); MONOCYTES % (AUTO) 6.5 % (2-12); NEUTROPHILS # (AUTO) 5.9 X10'3 (1.8-7.7); NEUTROPHILS % (AUTO) 86.2 % (42-75); PLATELET COUNT 141 X10'3 (140-440); RED CELL DISTRIBUTION WIDTH 20.4 % (11.5-14.5); WHITE BLOOD COUNT 6.8 X10'3 (4.5-11.0)
[2018-06-13 05:29] LABS: ALANINE AMINOTRANSFERASE 13 U/L (12-78); ALBUMIN/GLOBULIN RATIO 0.4 (1.1-1.5); ALKALINE PHOSPHATASE 191 IU/L (46-116); ANION GAP 10 (8-16); ASPARTATE AMINO TRANSFERASE 18 U/L (10-37); BILIRUBIN,TOTAL 0.8 MG/DL (0.1-1.0); BLOOD UREA NITROGEN 22 MG/DL (7-18); BUN/CREATININE RATIO 13.8 (5.4-32.0); CALCIUM 7.5 MG/DL (8.5-10.1); CHLORIDE 107 MMOL/L (99-107); LIPASE 223 U/L (73-393); POTASSIUM 5.1 MMOL/L (3.5-5.1); SODIUM 137 MMOL/L (135-145); TOTAL CARBON DIOXIDE 19.7 MMOL/L (24-32); TOTAL PROTEIN 7.6 G/DL (6.4-8.2); eGFR 44 ML/MIN
[2018-06-13 05:35] LABS: GLUCOSE 97 MG/DL (70-104)
[2018-06-13 06:15] VITALS: BP 104/66
[2018-06-13] MEDS ORDERED: FURO-150 PO (07:37)
[2018-06-13] MEDS ORDERED: LACT10SO74 PO (07:37)
[2018-06-13] MEDS ORDERED: SPIR100T5 PO (07:37)
[2018-06-13] MEDS ORDERED: PANT40TA4 PO (07:40)
[2018-06-13 09:45] LABS: PLATELET ESTIMATE NORMAL
[2018-06-13 09:46] LABS: ANISOCYTOSIS 2+; POIKILOCYTOSIS 1+; ROULEAUX 1+
[2018-06-13 09:47] LABS: ELLIPTOCYTES 1+; SCHISTOCYTES 1+; TEAR DROP CELLS 1+
== END 2018-06-13 06:20 | disposition home or self-care (01) ==
LOC: ER 03:33
DX: K42.9 Umbilical hernia without obstruction or gangrene (principal); R18.8 Other ascites; N18.9 Chronic kidney disease, unspecified; F11.90 Opioid use, unspecified, uncomplicated; Z60.2 Problems related to living alone; Z59.0 Homelessness; Z79.899 Other long term (current) drug therapy
CPT/HCPCS: 36415; 80053; 83605; 83690; 85025; 99284

== ENCOUNTER 2018-07-04 07:31 | Day surgery (SDC) | payer MEDICARE, MEDICAID ==
[~2018-07-04] VITALS: Ht 175.3 cm; Wt 58.7 kg
[~2018-07-04 07:31] MED LIST changes: -COR3.125T PO; -FERR325T28 PO; -FLUC100T9 PO; +FURO-150 PO; -FURO40TA4 PO; -HYDR-4383 PO; -LACT10SO PO; +LACT10SO74 PO; +SPIR100T5 PO; -SPIR50TA5 PO
[2018-07-04 07:46] VITALS: BP 117/76
[2018-07-04] MEDS ORDERED: albumin 25% 50mL bottle X 2 BOTTLES IV ONE (07:55)
[2018-07-04] MEDS ORDERED: normal saline 1000ml 1,000 ML IV PRN (07:55)
[2018-07-04] MEDS ORDERED: HYDR-4353 PO (08:11)
[2018-07-04] MEDS ORDERED: TRAM50TA2 PO (08:11)
[2018-07-04] MEDS ORDERED: LIDOcaine 1% 30ml preserv. free vial SQ ONE (08:30)
== END 2018-07-04 10:30 | disposition home or self-care (01) ==
LOC: SSTAY O 07:31
PROVIDERS: ATTEND Radiology Diagnostic Radiology
DX: Z03.89 Encounter for observation for other suspected diseases and conditions ruled out (principal)
CPT/HCPCS: 76705; J3490; J7030

== ENCOUNTER 2018-09-08 10:44 | Emergency (ER) | payer MEDICARE, MEDICAID ==
[~2018-09-08] VITALS: Ht 175.3 cm; Wt 79.8 kg
[~2018-09-08 10:44] MED LIST changes: -ASCO500T20 PO; +HYDR-4353 PO; +TRAM50TA2 PO
[2018-09-08 12:01] LABS: BASOPHILS % (AUTO) 0.5 % (0-1); EOSINOPHILS # (AUTO) 0.5 X10'3 (0-0.9); EOSINOPHILS % (AUTO) 7.7 % (0-6); HEMATOCRIT 23.5 % (42.0-52.0); HEMOGLOBIN 7.6 g/dl (14.0-17.9); LYMPHOCYTES # (AUTO) 0.4 X10'3 (1.1-4.8); LYMPHOCYTES % (AUTO) 6.6 % (21-51); MEAN CORPUSCULAR HEMOGLOBIN 28.4 PG (27.0-31.0); MEAN CORPUSCULAR HGB CONC 32.3 g/dL (33.0-36.5); MEAN CORPUSCULAR VOLUME 87.9 FL (78-98); MEAN PLATELET VOLUME 6.5 FL (7.4-10.4); MONOCYTES # (AUTO) 0.5 X10'3 (0-0.9); MONOCYTES % (AUTO) 7.9 % (2-12); NEUTROPHILS # (AUTO) 4.7 X10'3 (1.8-7.7); NEUTROPHILS % (AUTO) 77.3 % (42-75); PLATELET COUNT 72 X10'3 (140-440); RED BLOOD COUNT 2.67 X10'6 (4.70-6.10); RED CELL DISTRIBUTION WIDTH 14.8 % (11.5-14.5); WHITE BLOOD COUNT 6.1 X10'3 (4.5-11.0)
[2018-09-08 12:14] LABS: ALANINE AMINOTRANSFERASE 20 U/L (12-78); ALBUMIN 1.9 G/DL (3.4-5.0); ALBUMIN/GLOBULIN RATIO 0.4 (1.1-1.5); ALKALINE PHOSPHATASE 203 IU/L (46-116); ANION GAP 9 (8-16); ASPARTATE AMINO TRANSFERASE 24 U/L (10-37); BLOOD UREA NITROGEN 18 MG/DL (7-18); BUN/CREATININE RATIO 15.9 (5.4-32.0); CALCIUM 7.7 MG/DL (8.5-10.1); CHLORIDE 111 MMOL/L (99-107); CREATININE 1.13 MG/DL (0.60-1.10); GLUCOSE 101 MG/DL (70-104); LIPASE 224 U/L (73-393); MAGNESIUM 1.7 MG/DL (1.5-2.4); POTASSIUM 3.3 MMOL/L (3.5-5.1); SODIUM 140 MMOL/L (135-145); TOTAL CARBON DIOXIDE 20.5 MMOL/L (24-32); TOTAL PROTEIN 6.3 G/DL (6.4-8.2); eGFR 66 ML/MIN
[2018-09-08 14:06] LABS: CLARITY,URINE CLEAR (Clear); COLOR,URINE YELLOW (Yellow); GLUCOSE, URINE NEGATIVE (Neg); KETONES,URINE NEGATIVE (Neg); LEUKOCYTE ESTERASE ,URINE SMALL (Neg); NITRITES, URINE POSITIVE (Neg); OCCULT BLOOD,URINE LARGE (Neg); PROTEIN,URINE 30 mg/dl (Neg); UROBILINOGEN,URINE 0.2 E.U/dL (0.2-1.0)
[2018-09-08 14:09] LABS: UA COLLECTION TYPE NON-SPECIFIED
[2018-09-08 14:14] LABS: BACTERIA,URINE NONE SEEN /HPF (Neg); MUCUS STRANDS NONE SEEN /LPF (Neg); RBC,URINE 20-50 /HPF (0-2); SQUAMOUS EPITHELIAL CELL,UR NONE SEEN /LPF (FEW)
[2018-09-08] MEDS ORDERED: LIDOcaine 1% 30ml preserv. free vial IJ ONE (15:10)
--- NOTE | 2018-09-08 15:30 | NUR ---
INFORMED CONSENT OBTAINED. PT DRAPED USING STERILE TECHNIQUE. PARACENTESIS PERFORMED BY GREGORIO NEGRON.
[2018-09-08] MEDS ORDERED: albumin (human) 25% 100 ML IV solution IV ONE (15:45)
--- NOTE | 2018-09-08 16:39 | NUR ---
Total of 5,425 mL of yellow fluid drained from the abdomen via paracentesis. Pt tolerated procedure well. Albumin administered.
--- NOTE | 2018-09-08 16:43 | NUR ---
DRESSING APPLIED TO SITE OF PARACENTESIS. DRAINAGE STOPPED. HEMOCCULT TEST DONE BY GREGORIO NEGRON. IT WAS NEGATIVE.
[2018-09-08] MEDS ORDERED: CefTRIAXone 2gm/D5W 50ml 50 ML IV ONE (16:45)
--- NOTE | 2018-09-08 17:04 | NUR ---
DISC REQUESED FROM RADIOLOGY
--- NOTE | 2018-09-08 17:07 | NUR ---
NO BEDS AT [facility].
[2018-09-08] MEDS ORDERED: CARV3.123 PO ×2 (17:31→20:50)
[2018-09-08] MEDS ORDERED: HYDROmorphone 1 mg/ml syringe IV ONE (18:35)
--- NOTE | 2018-09-08 19:17 | NUR ---
CALLED DR. LLAMAS FOR SECOND TIME AT 19:17 AND HAVE LEFT TWO MESSAGES FOR HIM TO CALL DR. LANDRUM
[2018-09-08] MEDS ORDERED: spironolactone 50 MG tablet PO SCH (20:35)
[2018-09-08] MEDS ORDERED: spironolactone 25 MG tablet PO SCH (20:45)
[2018-09-08] MEDS ORDERED: SPIR100T5 PO (20:50)
[2018-09-08] MEDS ORDERED: FURO-150 PO (20:50)
[2018-09-08] MEDS ORDERED: carVEDilol 3.125mg tablet PO SCH (20:55)
[2018-09-08] MEDS: furosemide 20MG tablet PO ONE ×2 (20:57→21:03)
--- NOTE | 2018-09-08 21:02 | NUR ---
ALERTED DR LANDRUM OF PT LASIX DUE BUT POTASSIUM 3.3. DIALLO ORDERED TO CONTINUE TO ADMINISTER AND HE WOULD PLACE ORDERS FOR A POTASSIUM AND MAG REPLACEMENT PO.
[2018-09-08 21:03] LABS: URINE AMPHETAMINE SCREEN NEGATIVE (Neg); URINE BARBITUATE SCREEN NEGATIVE (Neg); URINE BENZODIAZEPINES SCREEN NEGATIVE (Neg); URINE CANNABINOID SCREEN NEGATIVE (Neg); URINE COCAINE SCREEN NEGATIVE (Neg); URINE METHADONE SCREEN NEGATIVE (Neg); URINE OPIATE SCREEN NEGATIVE (Neg); URINE PHENCYCLIDINE SCREEN NEGATIVE (Neg)
[2018-09-08] MEDS ORDERED: magnesium oxide 400mg tablet PO ONE (21:05)
[2018-09-08] MEDS ORDERED: potassium Cl 20 mEq SR tablet PO ONE (21:05)
[2018-09-08] MEDS ORDERED: HYDR-4383 PO (22:19)
[2018-09-08] MEDS ORDERED: HYDROcodone/acetaminophen 5mg/325mg tablet PO ONE (22:20)
[2018-09-08 22:28] VITALS: BP 122/83
[2018-09-09 08:36] LABS: OCCULT BLOOD STOOL NEGATIVE (Neg)
--- NOTE | 2018-09-15 10:21 | NUR ---
Attempted to call patient at listed contact number, this number has been disconnected. Called next of kin number, brother Jm, who stated that he would try and get a hold of patient unsure if he would be able to. I also sent out a letter to listed address per brothers request. Patient has UTI at which needs to be placed on Macrobid 100 mg PO BID x7 days #14 Gisella Molina MD
== END 2018-09-08 22:29 | disposition home or self-care (01) ==
LOC: ER 10:44
DX: R18.8 Other ascites (principal); D64.9 Anemia, unspecified; K42.9 Umbilical hernia without obstruction or gangrene; N39.0 Urinary tract infection, site not specified; K74.60 Unspecified cirrhosis of liver; I81 Portal vein thrombosis; N18.9 Chronic kidney disease, unspecified; I50.9 Heart failure, unspecified; F15.90 Other stimulant use, unspecified, uncomplicated; F11.90 Opioid use, unspecified, uncomplicated; Z59.0 Homelessness
CPT/HCPCS: 36415; 49083; 71045; 74176; 74177; 80053; 80305; 81001; 82140; 82272; 83605; 83690; 83735; 85025; 87040; 87077; 87088; 87186; 93005; 96365; 96367; 96375; 99291; J0696; J1170; J3490; P9047

== ENCOUNTER 2018-09-29 09:31 | Emergency (ER) | payer MEDICARE, MEDICAID ==
[~2018-09-29] VITALS: Ht 175.3 cm; Wt 83.8 kg
[~2018-09-29 09:31] MED LIST changes: +CARV3.123 PO; +HYDR-4383 PO
[2018-09-29 10:22] LABS: BASOPHILS % (AUTO) 0.6 % (0-1); EOSINOPHILS # (AUTO) 0.3 X10'3 (0-0.9); EOSINOPHILS % (AUTO) 5.2 % (0-6); HEMATOCRIT 23.7 % (42.0-52.0); HEMOGLOBIN 7.8 g/dl (14.0-17.9); LYMPHOCYTES # (AUTO) 0.4 X10'3 (1.1-4.8); LYMPHOCYTES % (AUTO) 6.3 % (21-51); MEAN CORPUSCULAR HEMOGLOBIN 29.4 PG (27.0-31.0); MEAN CORPUSCULAR VOLUME 89.1 FL (78-98); MEAN PLATELET VOLUME 6.4 FL (7.4-10.4); MONOCYTES # (AUTO) 0.5 X10'3 (0-0.9); MONOCYTES % (AUTO) 8.5 % (2-12); NEUTROPHILS # (AUTO) 4.8 X10'3 (1.8-7.7); NEUTROPHILS % (AUTO) 79.4 % (42-75); PLATELET COUNT 93 X10'3 (140-440); RED BLOOD COUNT 2.66 X10'6 (4.70-6.10); RED CELL DISTRIBUTION WIDTH 20.8 % (11.5-14.5)
[2018-09-29 10:34] LABS: INR 1.3 INR; PARTIAL THROMBOPLASTIN TIME 39 SECONDS (22-32)
[2018-09-29 10:35] LABS: ALBUMIN 1.8 G/DL (3.4-5.0); ANION GAP 8 (8-16); BILIRUBIN,TOTAL 0.9 MG/DL (0.1-1.0); BLOOD UREA NITROGEN 18 MG/DL (7-18); BUN/CREATININE RATIO 13.7 (5.4-32.0); CALCIUM 7.7 MG/DL (8.5-10.1); CHLORIDE 111 MMOL/L (99-107); CREATININE 1.31 MG/DL (0.60-1.10); GLUCOSE 116 MG/DL (70-104); POTASSIUM 4.1 MMOL/L (3.5-5.1); SODIUM 139 MMOL/L (135-145); TOTAL CARBON DIOXIDE 19.7 MMOL/L (24-32); eGFR 55 ML/MIN
[2018-09-29 10:36] LABS: ALANINE AMINOTRANSFERASE 22 U/L (12-78); ALBUMIN/GLOBULIN RATIO 0.3 (1.1-1.5); ALKALINE PHOSPHATASE 266 IU/L (46-116); ASPARTATE AMINO TRANSFERASE 30 U/L (10-37)
[2018-09-29] MEDS ORDERED: LIDOcaine 1% w/epiNEPHrine 1:200,000 30ml vial IM ONE (11:20)
[2018-09-29 12:12] LABS: PLATELET ESTIMATE DECREASED
[2018-09-29 12:13] LABS: ANISOCYTOSIS 3+
[2018-09-29] MEDS ORDERED: ondansetron/PF 4mg/2ml inj IV ONE (12:40)
--- NOTE | 2018-09-29 12:54 | NUR ---
PT IS GETTING A PARACENTESIS DONE BY MD MCKINNEY. PT'S ABD IS TIGHT AND DISTENDED. HX OF LIVER FAILURE.
[2018-09-29 13:26] VITALS: BP 116/73
--- NOTE | 2018-09-29 13:26 | NUR ---
DRAINED 7 LITERS OF FLUID FROM PT'S ABD. AWARE AND STATES THE CATHETER CAN BE PULLED. PT'S VS ARE STABLE. PT IS CALLING FOR A RIDE HOME
[2018-09-30] MEDS ORDERED: CEPH500C5 PO (23:10)
== END 2018-09-29 13:54 | disposition home or self-care (01) ==
LOC: ER 09:31
DX: R18.8 Other ascites (principal); R06.02 Shortness of breath; N18.9 Chronic kidney disease, unspecified; Z79.899 Other long term (current) drug therapy; Z59.0 Homelessness; Z60.2 Problems related to living alone
CPT/HCPCS: 36415; 49083; 71045; 80053; 84484; 85025; 85610; 85730; 93005; 96374; 99285; J2405; J3490

== ENCOUNTER 2018-10-12 17:22 | Emergency (ER) | payer MEDICARE, MEDICAID ==
[~2018-10-12] VITALS: Ht 175.3 cm; Wt 90.0 kg
[~2018-10-12 17:22] MED LIST changes: +CEPH500C5 PO
[2018-10-12 17:37] VITALS: BP 122/73
[2018-10-12 18:41] LABS: BASOPHILS % (AUTO) 0.6 % (0-1); EOSINOPHILS # (AUTO) 0.3 X10'3 (0-0.9); EOSINOPHILS % (AUTO) 5.6 % (0-6); HEMATOCRIT 24.6 % (42.0-52.0); HEMOGLOBIN 8.1 g/dl (14.0-17.9); LYMPHOCYTES # (AUTO) 0.3 X10'3 (1.1-4.8); LYMPHOCYTES % (AUTO) 4.6 % (21-51); MEAN CORPUSCULAR HEMOGLOBIN 29.8 PG (27.0-31.0); MEAN CORPUSCULAR HGB CONC 32.8 g/dL (33.0-36.5); MEAN CORPUSCULAR VOLUME 90.9 FL (78-98); MEAN PLATELET VOLUME 6.5 FL (7.4-10.4); MONOCYTES # (AUTO) 0.5 X10'3 (0-0.9); MONOCYTES % (AUTO) 9.7 % (2-12); NEUTROPHILS # (AUTO) 4.4 X10'3 (1.8-7.7); NEUTROPHILS % (AUTO) 79.5 % (42-75); PLATELET COUNT 100 X10'3 (140-440); RED CELL DISTRIBUTION WIDTH 20.4 % (11.5-14.5); WHITE BLOOD COUNT 5.5 X10'3 (4.5-11.0)
[2018-10-12 18:46] LABS: ALANINE AMINOTRANSFERASE 44 U/L (12-78); ALBUMIN 1.7 G/DL (3.4-5.0); ALBUMIN/GLOBULIN RATIO 0.3 (1.1-1.5); ALKALINE PHOSPHATASE 284 IU/L (46-116); ANION GAP 8 (8-16); ASPARTATE AMINO TRANSFERASE 55 U/L (10-37); BILIRUBIN,TOTAL 0.7 MG/DL (0.1-1.0); BLOOD UREA NITROGEN 18 MG/DL (7-18); BUN/CREATININE RATIO 14.9 (5.4-32.0); CALCIUM 7.2 MG/DL (8.5-10.1); CHLORIDE 112 MMOL/L (99-107); CREATININE 1.21 MG/DL (0.60-1.10); GLUCOSE 113 MG/DL (70-104); SODIUM 138 MMOL/L (135-145); eGFR 61 ML/MIN
[2018-10-12 19:37] LABS: ANISOCYTOSIS 3+; PLATELET ESTIMATE DECREASED; POIKILOCYTOSIS FEW
[2018-10-12 19:39] LABS: ROULEAUX 1+
== END 2018-10-12 19:51 | disposition left against medical advice (07) ==
LOC: ER 17:23
DX: K70.31 Alcoholic cirrhosis of liver with ascites (principal); N18.9 Chronic kidney disease, unspecified; Z79.899 Other long term (current) drug therapy; Z59.0 Homelessness
CPT/HCPCS: 36415; 80053; 85025; 99283

== ENCOUNTER 2018-11-30 13:15 | Emergency (ER) | payer MEDICARE, MEDICAID ==
[~2018-11-30 13:15] MED LIST changes: -PANT40TA4 PO; -SPIR100T5 PO; -TRAM50TA2 PO
== END 2018-11-30 14:28 | disposition left against medical advice (07) ==
LOC: ER 13:16
DX: N39.0 Urinary tract infection, site not specified (principal); Z53.21 Procedure and treatment not carried out due to patient leaving prior to being seen by health care provider

== ENCOUNTER 2018-12-01 19:57 | Emergency (ER) | payer MEDICARE, MEDICAID ==
[~2018-12-01] VITALS: Ht 175.3 cm; Wt 88.8 kg
[2018-12-01] MEDS ORDERED: epiNEPHrine inj 0.3 MG in LIDOcaine 1% 30ml vial 29.7 ML IJ ONE (21:40)
[2018-12-01] MEDS ORDERED: albumin (human) 25% 100 ML IV solution IV ONE (21:45)
[2018-12-01] MEDS ORDERED: LIDOcaine 1% w/epiNEPHrine 1:200,000 30ml vial IM ONE (21:45)
--- NOTE | 2018-12-02 00:20 | NUR ---
PT HAD 7 LITERS OF FLUID TAKEN OFF STOMACH. CATHETER DISCONNECTED. STERILE DRESSING PLACED.
[2018-12-02 00:22] VITALS: BP 111/88
--- NOTE | 2018-12-02 00:22 | NUR ---
PATIENT APPEARED OT HAVE DC'D HIS OWN PARACENTISIS. WHEN TWO NURSES WALKED IN, IT WAS DRAIN ON THE FLOOR.
== END 2018-12-02 00:32 | disposition home or self-care (01) ==
LOC: ER 19:59
DX: K70.31 Alcoholic cirrhosis of liver with ascites (principal); N50.819 Testicular pain, unspecified; N18.9 Chronic kidney disease, unspecified; R06.02 Shortness of breath; F10.99 Alcohol use, unspecified with unspecified alcohol-induced disorder; Z59.0 Homelessness; Z60.2 Problems related to living alone; Z79.899 Other long term (current) drug therapy; Y90.9 Presence of alcohol in blood, level not specified
CPT/HCPCS: 49082; 93005; 96365; 99285; P9047

== ENCOUNTER 2018-12-06 07:13 | Day surgery (SDC) | payer MEDICARE, MEDICAID ==
[~2018-12-06] VITALS: Ht 175.3 cm; Wt 82.8 kg
[2018-12-06] VITALS (12 sets, daily range): BP systolic 105–129; BP diastolic 66–81
[2018-12-06] MEDS ORDERED: CARV3.122 PO (08:11)
[2018-12-06] MEDS ORDERED: FURO-149 PO (08:13)
[2018-12-06] MEDS: albumin 25% 100mL bottle x 1 IV PRN ×3 (08:34→09:42)
== END 2018-12-06 10:30 | disposition home or self-care (01) ==
LOC: SSTAY O 07:13
PROVIDERS: ATTEND Radiology Diagnostic Radiology
DX: R18.8 Other ascites (principal); D64.9 Anemia, unspecified; K74.60 Unspecified cirrhosis of liver; N18.9 Chronic kidney disease, unspecified; Z79.899 Other long term (current) drug therapy
CPT/HCPCS: 49083; C1729; P9047

== ENCOUNTER 2018-12-30 20:02 | Emergency (ER) | payer MEDICARE, MEDICAID ==
[~2018-12-30] VITALS: Ht 175.3 cm; Wt 77.8 kg
[~2018-12-30 20:02] MED LIST changes: +CARV3.122 PO; -CARV3.123 PO; -CEPH500C5 PO; +FURO-149 PO; -FURO-150 PO; -HYDR-4383 PO
[2018-12-30 20:55] LABS: BASOPHILS % (AUTO) 0.4 % (0-1); EOSINOPHILS # (AUTO) 0.3 X10'3 (0-0.9); EOSINOPHILS % (AUTO) 2.7 % (0-6); LYMPHOCYTES # (AUTO) 0.3 X10'3 (1.1-4.8); LYMPHOCYTES % (AUTO) 3.1 % (21-51); MEAN CORPUSCULAR HEMOGLOBIN 29.8 PG (27.0-31.0); MEAN CORPUSCULAR HGB CONC 33.3 g/dL (33.0-36.5); MEAN CORPUSCULAR VOLUME 89.2 FL (78-98); MEAN PLATELET VOLUME 5.9 FL (7.4-10.4); MONOCYTES # (AUTO) 0.5 X10'3 (0-0.9); NEUTROPHILS # (AUTO) 9.1 X10'3 (1.8-7.7); NEUTROPHILS % (AUTO) 88.8 % (42-75); PLATELET COUNT 90 X10'3 (140-440); RED BLOOD COUNT 2.34 X10'6 (4.70-6.10); RED CELL DISTRIBUTION WIDTH 17.7 % (11.5-14.5); WHITE BLOOD COUNT 10.3 X10'3 (4.5-11.0)
[2018-12-30 21:04] LABS: ALANINE AMINOTRANSFERASE 21 U/L (12-78); ALBUMIN 1.6 G/DL (3.4-5.0); ALBUMIN/GLOBULIN RATIO 0.3 (1.1-1.5); ALKALINE PHOSPHATASE 169 IU/L (46-116); ANION GAP 10 (8-16); ASPARTATE AMINO TRANSFERASE 39 U/L (10-37); BILIRUBIN,TOTAL 0.7 MG/DL (0.1-1.0); BLOOD UREA NITROGEN 18 MG/DL (7-18); BUN/CREATININE RATIO 10.9 (5.4-32.0); CHLORIDE 110 MMOL/L (99-107); CREATININE 1.65 MG/DL (0.60-1.10); ETHANOL < 0.010 GM/DL (0.0-0.010); GLUCOSE 115 MG/DL (70-104); HEMATOCRIT 20.9 % (42.0-52.0); POTASSIUM 3.2 MMOL/L (3.5-5.1); SODIUM 141 MMOL/L (135-145); TOTAL CARBON DIOXIDE 20.9 MMOL/L (24-32); TOTAL PROTEIN 6.4 G/DL (6.4-8.2); eGFR 42 ML/MIN
[2018-12-30 21:07] VITALS: BP 109/80
[2018-12-30 21:20] LABS: PARTIAL THROMBOPLASTIN TIME 34 SECONDS (22-32)
[2018-12-30] MEDS ORDERED: LIDOcaine 1% w/epiNEPHrine 1:200,000 30ml vial IM ONE (21:25)
== END 2018-12-30 22:43 | disposition home or self-care (01) ==
LOC: ER 20:03
DX: S02.81XA Fracture of other specified skull and facial bones, right side, initial encounter for closed fracture (principal); S01.81XA Laceration without foreign body of other part of head, initial encounter; S40.011A Contusion of right shoulder, initial encounter; I50.9 Heart failure, unspecified; N18.9 Chronic kidney disease, unspecified; Z95.1 Presence of aortocoronary bypass graft; Z79.899 Other long term (current) drug therapy; W18.09XA Striking against other object with subsequent fall, initial encounter; Y93.89 Activity, other specified; Y92.810 Car as the place of occurrence of the external cause; Y99.8 Other external cause status
CPT/HCPCS: 12013; 36415; 70450; 70486; 71045; 72125; 73030; 80053; 80320; 85025; 85610; 85730; 99284

== ENCOUNTER 2019-01-01 20:16 | Emergency (ER) | payer MEDICARE, MEDICAID ==
[~2019-01-01] VITALS: Ht 175.3 cm; Wt 85.0 kg
[2019-01-01 20:31] VITALS: BP 115/75
[2019-01-01] MEDS ORDERED: traMADol 50MG tablet PO ONE (22:15)
[2019-01-01] MEDS ORDERED: LIDOcaine 5% patch TP ONE (22:15)
[2019-01-01] MEDS ORDERED: LIDO700A32 TP (22:41)
[2019-01-01] MEDS ORDERED: CYCL-1 PO (22:41)
== END 2019-01-01 23:36 | disposition home or self-care (01) ==
LOC: ER 20:17
DX: S20.211A Contusion of right front wall of thorax, initial encounter (principal); S00.83XA Contusion of other part of head, initial encounter; R42 Dizziness and giddiness; N18.9 Chronic kidney disease, unspecified; I50.9 Heart failure, unspecified; Z79.899 Other long term (current) drug therapy; Z87.19 Personal history of other diseases of the digestive system; Z95.1 Presence of aortocoronary bypass graft; Z60.2 Problems related to living alone; Z59.0 Homelessness; W22.8XXA Striking against or struck by other objects, initial encounter; Y93.89 Activity, other specified; Y92.810 Car as the place of occurrence of the external cause; Y99.8 Other external cause status
CPT/HCPCS: 71045; 93005; 99283

== ENCOUNTER 2019-01-04 04:22 | Inpatient (IN) | payer MEDICARE, MEDICAID ==
[~2019-01-04] VITALS: Ht 147.3 cm; Wt 86.1 kg
[2019-01-04] VITALS (18 sets, daily range): BP systolic 97–122; BP diastolic 65–84
[~2019-01-04 04:22] MED LIST changes: +CYCL-1 PO; +LIDO700A32 TP
--- NOTE | 2019-01-04 04:52 | NUR ---
pt reports he was here on tuesday for a fall and hit his head. pt continues with bruising to his face, abdomen, and right shouder. He states he was given a "shot and a patch that didn't help at all". He reports "I gotta have something for the pain..." Pt reports he was last tapped about 3 weeks ago.
--- NOTE | 2019-01-04 05:04 | NUR ---
PT REPORTS SEVERE 10 OUT OF 10 PAIN TO HIS RIGHT CHEST. DR. GONZALEZ UPDATED AND WILL SEE PT SHORTLY.
[2019-01-04] MEDS ORDERED: albumin (human) 25% 100 ML IV solution IV ONE (05:10)
[2019-01-04] MEDS ORDERED: HYDROcodone/acetaminophen 10/325mg tab PO ONE (05:30)
[2019-01-04] MEDS ORDERED: ondansetron 4mg rapidly disintigrating tab PO ONE (05:30)
--- NOTE | 2019-01-04 05:56 | NUR ---
Dr. Medley at bedside to dc paracentisis catheter. wanted to stop the drainage at 8 liters. fluid specimin collected. Pt tolerated procedure well. Pt given tablet of norco and zofran.
[2019-01-04] MEDS ORDERED: HYDR-4353 PO (05:57)
[2019-01-04] MEDS ORDERED: ONDA4TAB6 PO (05:57)
[2019-01-04 06:06] LABS: BASOPHILS % (AUTO) 0.5 % (0-1); EOSINOPHILS # (AUTO) 0.2 X10'3 (0-0.9); EOSINOPHILS % (AUTO) 3.8 % (0-6); LYMPHOCYTES # (AUTO) 0.4 X10'3 (1.1-4.8); LYMPHOCYTES % (AUTO) 6.2 % (21-51); MEAN CORPUSCULAR HEMOGLOBIN 29.7 PG (27.0-31.0); MEAN CORPUSCULAR HGB CONC 33.1 g/dL (33.0-36.5); MEAN PLATELET VOLUME 6.1 FL (7.4-10.4); MONOCYTES # (AUTO) 0.5 X10'3 (0-0.9); MONOCYTES % (AUTO) 7.9 % (2-12); NEUTROPHILS # (AUTO) 5.1 X10'3 (1.8-7.7); NEUTROPHILS % (AUTO) 81.6 % (42-75); PLATELET COUNT 71 X10'3 (140-440); RED BLOOD COUNT 1.81 X10'6 (4.70-6.10); WHITE BLOOD COUNT 6.2 X10'3 (4.5-11.0)
[2019-01-04 06:11] LABS: ALANINE AMINOTRANSFERASE 17 U/L (12-78); ALBUMIN 1.5 G/DL (3.4-5.0); ALBUMIN/GLOBULIN RATIO 0.3 (1.1-1.5); ALKALINE PHOSPHATASE 147 IU/L (46-116); ANION GAP 10 (8-16); ASPARTATE AMINO TRANSFERASE 24 U/L (10-37); BILIRUBIN,TOTAL 0.7 MG/DL (0.1-1.0); BLOOD UREA NITROGEN 22 MG/DL (7-18); BUN/CREATININE RATIO 13.8 (5.4-32.0); CALCIUM 6.8 MG/DL (8.5-10.1); CHLORIDE 111 MMOL/L (99-107); CREATININE 1.59 MG/DL (0.60-1.10); GLUCOSE 92 MG/DL (70-104); SODIUM 142 MMOL/L (135-145); TOTAL CARBON DIOXIDE 20.8 MMOL/L (24-32); TOTAL PROTEIN 6.1 G/DL (6.4-8.2); eGFR 44 ML/MIN
[2019-01-04 06:20] LABS: POTASSIUM 2.9 MMOL/L (3.5-5.1)
[2019-01-04] MEDS ORDERED: potassium Cl 20 mEq SR tablet PO STA (06:21)
[2019-01-04] MEDS ORDERED: POTA20TA19 PO (06:22)
[2019-01-04 06:27] LABS: GLUCOSE,BODY FLUID 99 MG/DL
[2019-01-04 06:45] LABS: TOTAL PROTEIN,BODY FLUID < 2.0 G/DL
[2019-01-04 06:56] LABS: BF RBC COUNT 136250 /CU MM; BF WBC COUNT 36 /CU MM (0-1000); BFAPPEAR BLOODY; BFCOLOR RED; BFVOLUME 55 ML
[2019-01-04 06:58] LABS: BASOPHILS,BODY FLUID 1 %; EOSINOPHILS,BODY FLUID 1 %; LYMPHOCYTES,BODY FLUID 25 %; MONOCYTES,BODY FLUID 16 %; NEUTROPHILS,BODY FLUID 57 %
[2019-01-04 07:05] LABS: HEMATOCRIT 16.3 % (42.0-52.0); HEMOGLOBIN 5.4 g/dl (14.0-17.9)
[2019-01-04] MEDS ORDERED: iohexol 300mg/ml 100ml inj. ONE (07:28)
[2019-01-04] MEDS: pantoprazole 40MG/NS 100ML BAG 100 ML IV SCH ×4 (07:58→21:54)
[2019-01-04 08:27] LABS: MAGNESIUM 1.8 MG/DL (1.5-2.4)
[2019-01-04] MEDS ORDERED: potassium Cl 10 mEq/100mL bag IV ONE (09:35)
[2019-01-04] MEDS ORDERED: acetaminophen 325mg tablet PO PRN ×2 (10:00)
[2019-01-04] MEDS ORDERED: potassium CL 10mEq/100ml bag 100 ML IV PRN ×2 (10:00)
[2019-01-04] MEDS ORDERED: magnesium hydroxide 30ml (MOM) UD suspension PO PRN (10:00)
[2019-01-04] MEDS ORDERED: potassium Cl 20 mEq SR tablet PO PRN (10:00)
[2019-01-04] MEDS: normal saline 1000ml 1,000 ML IV SCH ×2 (11:10→21:54)
[2019-01-04] MEDS ORDERED: VITC500T PO (11:32)
[2019-01-04] MEDS ORDERED: FERR325T32 PO (11:33)
--- NOTE | 2019-01-04 12:09 | NUR ---
patient arrived to 2040 and transferred to hospital bed and placed on monitor. In no apparent distress; VSS; alert and oriented. Oriented to room and given call light with instructions to call for assistance. Bed alarm set.
[2019-01-04] MEDS: HYDROcodone/acetaminophen 10/325mg tab PO PRN ×2 (13:03→19:11)
[2019-01-04 14:00] LABS: FERRITIN 79 NG/ML (26-388)
[2019-01-04 14:30] LABS: % IRON SATURATION 97 % (11-46); IRON 76 UG/DL (53-167); TOTAL IRON BINDING CAPACITY 78 UG/DL (259-388)
[2019-01-04] MEDS: potassium Cl 20 mEq SR tablet PO PRN ×2 (14:46→19:10)
[2019-01-04 15:51] LABS: HEMATOCRIT 22.5 % (42.0-52.0); HEMOGLOBIN 7.5 g/dl (14.0-17.9); MEAN CORPUSCULAR HGB CONC 33.4 g/dL (33.0-36.5); MEAN CORPUSCULAR VOLUME 89.8 FL (78-98); MEAN PLATELET VOLUME 5.9 FL (7.4-10.4); PLATELET COUNT 71 X10'3 (140-440); RED CELL DISTRIBUTION WIDTH 16.2 % (11.5-14.5); WHITE BLOOD COUNT 5.8 X10'3 (4.5-11.0)
[2019-01-04] MEDS ORDERED: HYDROcodone/acetaminophen 10/325mg tab PO PRN (16:30)
--- NOTE | 2019-01-04 16:44 | NUR ---
Dr Weston updated on post transfusion H/H and troponin
--- NOTE | 2019-01-04 18:35 | NUR ---
Patient in room ICU 2040. I have received report from JOHNNY Guaman and had the opportunity to ask questions and assume patient care.
[2019-01-04] MEDS: folic acid 0.4mg tablet PO SCH (19:08)
[2019-01-04] MEDS: thiamine 100mg tablet PO SCH (19:09)
[2019-01-04] MEDS: lactobacillus rhamnosus 10,000 MMU CELLS/CAPSULE PO SCH (19:09)
[2019-01-04] MEDS: lactulose 20gm/30ml cup PO SCH (23:54)
[2019-01-05] VITALS (24 sets, daily range): BP systolic 110–136; BP diastolic 71–95
[2019-01-05] MEDS: pantoprazole 40MG/NS 100ML BAG 100 ML IV SCH ×5 (01:00→20:41)
[2019-01-05] MEDS: HYDROcodone/acetaminophen 10/325mg tab PO PRN ×3 (02:28→13:56)
[2019-01-05 02:40] LABS: BASOPHILS % (AUTO) 0.4 % (0-1); EOSINOPHILS # (AUTO) 0.4 X10'3 (0-0.9); HEMOGLOBIN 7.1 g/dl (14.0-17.9); LYMPHOCYTES # (AUTO) 0.4 X10'3 (1.1-4.8); LYMPHOCYTES % (AUTO) 7.1 % (21-51); MEAN CORPUSCULAR HEMOGLOBIN 29.9 PG (27.0-31.0); MEAN CORPUSCULAR HGB CONC 33.4 g/dL (33.0-36.5); MEAN CORPUSCULAR VOLUME 89.3 FL (78-98); MEAN PLATELET VOLUME 6.1 FL (7.4-10.4); MONOCYTES # (AUTO) 0.4 X10'3 (0-0.9); MONOCYTES % (AUTO) 7.6 % (2-12); NEUTROPHILS # (AUTO) 4.2 X10'3 (1.8-7.7); NEUTROPHILS % (AUTO) 77.9 % (42-75); PLATELET COUNT 67 X10'3 (140-440); RED BLOOD COUNT 2.38 X10'6 (4.70-6.10); RED CELL DISTRIBUTION WIDTH 16.3 % (11.5-14.5); WHITE BLOOD COUNT 5.4 X10'3 (4.5-11.0)
[2019-01-05 02:53] LABS: HEMATOCRIT 21.3 % (42.0-52.0)
[2019-01-05 02:55] LABS: ALANINE AMINOTRANSFERASE 11 U/L (12-78); ALBUMIN 1.8 G/DL (3.4-5.0); ALBUMIN/GLOBULIN RATIO 0.5 (1.1-1.5); ALKALINE PHOSPHATASE 121 IU/L (46-116); ANION GAP 4 (8-16); ASPARTATE AMINO TRANSFERASE 16 U/L (10-37); BLOOD UREA NITROGEN 19 MG/DL (7-18); BUN/CREATININE RATIO 13.1 (5.4-32.0); CALCIUM 6.5 MG/DL (8.5-10.1); CHLORIDE 115 MMOL/L (99-107); CREATININE 1.45 MG/DL (0.60-1.10); GLUCOSE 99 MG/DL (70-104); POTASSIUM 4.3 MMOL/L (3.5-5.1); SODIUM 140 MMOL/L (135-145); TOTAL CARBON DIOXIDE 20.7 MMOL/L (24-32); TOTAL PROTEIN 5.7 G/DL (6.4-8.2); eGFR 49 ML/MIN
[2019-01-05 02:58] LABS: MAGNESIUM 1.6 MG/DL (1.5-2.4); PHOSPHORUS 3.6 MG/DL (2.3-4.5)
--- NOTE | 2019-01-05 05:20 | NUR ---
Patient appeared to be sleeping for most of the night. Patient wakes up briefly then falls back to sleep. Patient awoke around 0520 this morning stating " I am uncomfortable and I cant breathe." Patient c/o right side abdominal pain, right side rib cage pain, right side shoulder pain. Suggested to patient that we can assist him with repositioning onto his left side. After repositioning patient relates that his pain feels better. Patient appeared to be back to sleep quickly. Physical exam with some increased abdominal distension as reported by patient. Patients abdomen firm to palpation. Will continue to monitor.
--- NOTE | 2019-01-05 06:39 | NUR ---
Problems reprioritized. Patient report given, questions answered & plan of care reviewed with JOHNNY Johnston and JOHNNY Saha.
[2019-01-05] MEDS: ferrous sulfate 325mg tablet PO SCH (07:36)
[2019-01-05] MEDS: lactobacillus rhamnosus 10,000 MMU CELLS/CAPSULE PO SCH ×2 (07:36→20:41)
[2019-01-05] MEDS: lactulose 20gm/30ml cup PO SCH ×2 (07:36→16:00)
[2019-01-05] MEDS: ascorbic acid 500mg tablet PO SCH (07:36)
[2019-01-05] MEDS: folic acid 0.4mg tablet PO SCH (07:37)
[2019-01-05] MEDS: thiamine 100mg tablet PO SCH (07:37)
[2019-01-05] MEDS ORDERED: folic acid 0.4mg tablet PO SCH (08:00)
[2019-01-05] MEDS ORDERED: thiamine 100mg tablet PO SCH (08:00)
[2019-01-05 09:12] LABS: HEMATOCRIT 22.3 % (42.0-52.0); HEMOGLOBIN 7.3 g/dl (14.0-17.9); MEAN CORPUSCULAR HEMOGLOBIN 29.6 PG (27.0-31.0); MEAN CORPUSCULAR HGB CONC 32.5 g/dL (33.0-36.5); MEAN CORPUSCULAR VOLUME 90.9 FL (78-98); MEAN PLATELET VOLUME 5.9 FL (7.4-10.4); PLATELET COUNT 79 X10'3 (140-440); RED BLOOD COUNT 2.45 X10'6 (4.70-6.10); RED CELL DISTRIBUTION WIDTH 16.5 % (11.5-14.5); WHITE BLOOD COUNT 8.4 X10'3 (4.5-11.0)
[2019-01-05] MEDS: normal saline 1000ml 1,000 ML IV SCH (11:46)
[2019-01-05 14:03] LABS: HEMATOCRIT 22.3 % (42.0-52.0); HEMOGLOBIN 7.3 g/dl (14.0-17.9); MEAN CORPUSCULAR HEMOGLOBIN 29.8 PG (27.0-31.0); MEAN CORPUSCULAR HGB CONC 32.6 g/dL (33.0-36.5); MEAN CORPUSCULAR VOLUME 91.2 FL (78-98); MEAN PLATELET VOLUME 6.6 FL (7.4-10.4); PLATELET COUNT 73 X10'3 (140-440); RED BLOOD COUNT 2.45 X10'6 (4.70-6.10); RED CELL DISTRIBUTION WIDTH 16.9 % (11.5-14.5); WHITE BLOOD COUNT 8.2 X10'3 (4.5-11.0)
--- NOTE | 2019-01-05 15:00 | NUR ---
Malnutrition consult. Patient with history of EtOH liver cirrhosis, ESLD, ventral hernia, cholelithiasis, CHF, Meth, frequent paracentesis today with 8 liters out and another 3 and 5 weeks ago. Short of breath. Current ht in EMR documented as error, previous heights are 69 inches, BMI for patient is 27. Per documented wt history pt weighed 113 kg on gurney scale last year on 01/30, 90 kg on bedscale 12/29/17, 95 kg chair scale march 2018. Multiple past visits for ascites, weight fluctuates greatly d/t this. Last October patient weighed 80 kg on chair scale, current weight 82 kg on bedscale. Wt taken prior to 8 liters removed, likely that patient now weighs less. Will use IBW for nutrition recommendations. Patient is eating well, great appetite, eating 100% of meals and meeting nutrition needs including increased needs r/t cirrhosis. No BM yet, pt receiving lactulose. No edema. Much of patient's weight loss may be r/t fluid removal in paracentesis.Does not meet more than two criteria for malnutrition at this time. Addendum: 01/05/19 at [address] Amended: Links added.
[2019-01-05] MEDS: morphine 4 MG/ML inj SYRINge IV PRN (17:14)
--- NOTE | 2019-01-05 18:20 | NUR ---
Problems reprioritized. Patient report given to prop sawyer, questions answered & plan of care reviewed with .
--- NOTE | 2019-01-05 18:31 | NUR ---
received report from Yifan TURNER no questions or concerns after receiving Sbar
--- NOTE | 2019-01-05 19:45 | NUR ---
patient sitting in chair eating dinner laughing with RN jokes , no observable s/s of acute stress at this time
[2019-01-05] MEDS: morphine 2 MG/ML inj. syringe IV PRN (22:17)
[2019-01-05] MEDS: ondansetron/PF 4mg/2ml inj IV PRN (22:17)
--- NOTE | 2019-01-05 23:00 | NUR ---
patient in bed covers on rr even un labored patient tends to grunt every so often, still in sinus tach with no observable s/s of acute stress at this time
[2019-01-06] VITALS (24 sets, daily range): BP systolic 107–147; BP diastolic 70–94
[2019-01-06] MEDS: lactulose 20gm/30ml cup PO SCH ×4 (00:39→23:46)
[2019-01-06] MEDS: normal saline 1000ml 1,000 ML IV SCH (01:00)
[2019-01-06] MEDS: pantoprazole 40MG/NS 100ML BAG 100 ML IV SCH ×5 (01:00→21:00)
--- NOTE | 2019-01-06 03:09 | NUR ---
patient in bed supine covers on rr even un labored still in sinus tach no observable s/s of acute stress at this time appears to be resting comfortably will continue to monitor
[2019-01-06 05:52] LABS: BASOPHILS % (AUTO) 0.3 % (0-1); EOSINOPHILS # (AUTO) 0.2 X10'3 (0-0.9); EOSINOPHILS % (AUTO) 1.3 % (0-6); HEMATOCRIT 22.1 % (42.0-52.0); HEMOGLOBIN 7.2 g/dl (14.0-17.9); LYMPHOCYTES # (AUTO) 0.2 X10'3 (1.1-4.8); LYMPHOCYTES % (AUTO) 1.6 % (21-51); MEAN CORPUSCULAR HEMOGLOBIN 29.5 PG (27.0-31.0); MEAN CORPUSCULAR HGB CONC 32.4 g/dL (33.0-36.5); MEAN CORPUSCULAR VOLUME 90.8 FL (78-98); MONOCYTES # (AUTO) 0.6 X10'3 (0-0.9); MONOCYTES % (AUTO) 4.7 % (2-12); NEUTROPHILS # (AUTO) 12.5 X10'3 (1.8-7.7); NEUTROPHILS % (AUTO) 92.1 % (42-75); PLATELET COUNT 70 X10'3 (140-440); RED BLOOD COUNT 2.44 X10'6 (4.70-6.10); RED CELL DISTRIBUTION WIDTH 16.5 % (11.5-14.5); WHITE BLOOD COUNT 13.6 X10'3 (4.5-11.0)
[2019-01-06 06:16] LABS: ALANINE AMINOTRANSFERASE 15 U/L (12-78); ALBUMIN 1.8 G/DL (3.4-5.0); ALBUMIN/GLOBULIN RATIO 0.4 (1.1-1.5); ALKALINE PHOSPHATASE 131 IU/L (46-116); ANION GAP 8 (8-16); ASPARTATE AMINO TRANSFERASE 24 U/L (10-37); BILIRUBIN,TOTAL 1.6 MG/DL (0.1-1.0); BLOOD UREA NITROGEN 19 MG/DL (7-18); BUN/CREATININE RATIO 11.6 (5.4-32.0); CHLORIDE 113 MMOL/L (99-107); CREATININE 1.64 MG/DL (0.60-1.10); GLUCOSE 76 MG/DL (70-104); MAGNESIUM 1.7 MG/DL (1.5-2.4); PHOSPHORUS 3.4 MG/DL (2.3-4.5); POTASSIUM 4.8 MMOL/L (3.5-5.1); SODIUM 139 MMOL/L (135-145); TOTAL PROTEIN 6.1 G/DL (6.4-8.2); eGFR 43 ML/MIN
--- NOTE | 2019-01-06 06:37 | NUR ---
sbar to suha abel no questions or concerns after assuming care
[2019-01-06] MEDS: folic acid 0.4mg tablet PO SCH (08:06)
[2019-01-06] MEDS: lactobacillus rhamnosus 10,000 MMU CELLS/CAPSULE PO SCH ×2 (08:06→20:27)
[2019-01-06] MEDS: thiamine 100mg tablet PO SCH (08:06)
--- NOTE | 2019-01-06 10:00 | NUR ---
Dr. Callaway updated on patient condition during rounds. Patient still not having BM to be able to obtain occult blood sample. Patient continues to be tachycardic. Patient constantly sounding wheezy. No new orders received besides transfer orders to PCU with a sitter.
[2019-01-06] MEDS: morphine 4 MG/ML inj SYRINge IV PRN (11:43)
[2019-01-06] MEDS: HYDROcodone/acetaminophen 10/325mg tab PO PRN ×2 (13:50→20:28)
--- NOTE | 2019-01-06 18:29 | NUR ---
Patient in room ICU 2040. I have received report from Kelly TURNER and had the opportunity to ask questions and assume patient care. Patient resting in bed with eyes closed, in no apparent distress. Vitals WNL, on room air. Will continue to monitor patient.
--- NOTE | 2019-01-06 22:00 | NUR ---
Patient complaining of ABD pain and SOB. Patient saturating at 100% on room air, lung sounds clear. Notified May [facility] OPERATING ROOM SPECIALIST, states to have daytime RN inform daytime supply requirements officer for possible need for paracentesis. Morphine administered for pain, will continue to monitor patient closely.
[2019-01-06] MEDS: morphine 2 MG/ML inj. syringe IV PRN (22:09)
--- NOTE | 2019-01-06 23:45 | NUR ---
Patient report given to Reyna TURNER. Patient transferred via wheelchair in stable condition, all belongings and chart with patient at time of transfer. Patient transferred by RN.
[2019-01-07] VITALS (11 sets, daily range): BP systolic 104–130; BP diastolic 75–95
--- NOTE | 2019-01-07 00:10 | NUR ---
Patient in room ICU 2040. I have received report from Selena TURNER ICU, and had the opportunity to ask questions and assume patient care.
[2019-01-07] MEDS: HYDROcodone/acetaminophen 10/325mg tab PO PRN (00:30)
--- NOTE | 2019-01-07 00:30 | NUR ---
Pt transferred fr/ICU to 3012B via WC in moderate distress. Assisted to bed w/2 person standby. Appears weak on feet. Abd noted to be very distended and tight, effecting pt's movement. Lge abd hernia also noted to lower Abd. C/O abd discomfort, medicated f/fair relief. No SOB noted. Telemetry placed for ST at 108/min. LE edema noted bilat from mid thigh to feet. BS positive X 4. Voiding sml amt of urine. Oriented to surroundings, awake stating he 'cannot sleep unless he has had a shower'.
[2019-01-07] MEDS: morphine 4 MG/ML inj SYRINge IV PRN ×2 (02:53→07:32)
[2019-01-07] MEDS: pantoprazole 40MG/NS 100ML BAG 100 ML IV SCH ×5 (03:38→19:33)
[2019-01-07 05:18] LABS: BASOPHILS % (AUTO) 0.3 % (0-1); EOSINOPHILS # (AUTO) 0.3 X10'3 (0-0.9); EOSINOPHILS % (AUTO) 3.6 % (0-6); LYMPHOCYTES # (AUTO) 0.3 X10'3 (1.1-4.8); LYMPHOCYTES % (AUTO) 3.5 % (21-51); MEAN CORPUSCULAR HEMOGLOBIN 29.7 PG (27.0-31.0); MEAN CORPUSCULAR HGB CONC 32.1 g/dL (33.0-36.5); MEAN CORPUSCULAR VOLUME 92.5 FL (78-98); MEAN PLATELET VOLUME 6.4 FL (7.4-10.4); MONOCYTES # (AUTO) 0.5 X10'3 (0-0.9); MONOCYTES % (AUTO) 6.6 % (2-12); PLATELET COUNT 68 X10'3 (140-440); RED BLOOD COUNT 2.35 X10'6 (4.70-6.10); RED CELL DISTRIBUTION WIDTH 16.8 % (11.5-14.5); WHITE BLOOD COUNT 8.2 X10'3 (4.5-11.0)
[2019-01-07 05:27] LABS: HEMATOCRIT 21.7 % (42.0-52.0)
[2019-01-07 05:28] LABS: ALANINE AMINOTRANSFERASE 12 U/L (12-78); ALBUMIN 1.7 G/DL (3.4-5.0); ALBUMIN/GLOBULIN RATIO 0.4 (1.1-1.5); ALKALINE PHOSPHATASE 143 IU/L (46-116); ANION GAP 8 (8-16); ASPARTATE AMINO TRANSFERASE 27 U/L (10-37); BILIRUBIN,TOTAL 0.9 MG/DL (0.1-1.0); BLOOD UREA NITROGEN 22 MG/DL (7-18); BUN/CREATININE RATIO 12.7 (5.4-32.0); CALCIUM 7.2 MG/DL (8.5-10.1); CHLORIDE 112 MMOL/L (99-107); CREATININE 1.73 MG/DL (0.60-1.10); GLUCOSE 88 MG/DL (70-104); MAGNESIUM 1.8 MG/DL (1.5-2.4); PHOSPHORUS 3.7 MG/DL (2.3-4.5); POTASSIUM 4.9 MMOL/L (3.5-5.1); SODIUM 138 MMOL/L (135-145); TOTAL CARBON DIOXIDE 18.5 MMOL/L (24-32); TOTAL PROTEIN 6.1 G/DL (6.4-8.2); eGFR 40 ML/MIN
--- NOTE | 2019-01-07 05:30 | NUR ---
Elizabeth Pablo, PRESS BOX CUSTODIAN notified of am lab results Hgb: 7.0, Hct: 21.7. lab order entered per PRESS BOX CUSTODIAN.
--- NOTE | 2019-01-07 06:39 | NUR ---
Patient in room PCU 3012. I have received report from Yumiko TURNER and had the opportunity to ask questions and assume patient care.
--- NOTE | 2019-01-07 07:28 | NUR ---
Problems reprioritized. Patient report given, questions answered & plan of care reviewed with Judit TURNER.
[2019-01-07] MEDS: lactulose 20gm/30ml cup PO SCH ×2 (07:31→16:12)
[2019-01-07] MEDS: lactobacillus rhamnosus 10,000 MMU CELLS/CAPSULE PO SCH ×2 (07:31→19:29)
[2019-01-07] MEDS: thiamine 100mg tablet PO SCH (07:31)
[2019-01-07] MEDS: folic acid 0.4mg tablet PO SCH (07:31)
[2019-01-07 11:41] LABS: HEMATOCRIT 24.3 % (42.0-52.0); HEMOGLOBIN 7.8 g/dl (14.0-17.9); MEAN CORPUSCULAR HEMOGLOBIN 29.4 PG (27.0-31.0); MEAN CORPUSCULAR HGB CONC 32.2 g/dL (33.0-36.5); MEAN CORPUSCULAR VOLUME 91.3 FL (78-98); MEAN PLATELET VOLUME 6.3 FL (7.4-10.4); PLATELET COUNT 71 X10'3 (140-440); RED BLOOD COUNT 2.66 X10'6 (4.70-6.10); WHITE BLOOD COUNT 8.6 X10'3 (4.5-11.0)
[2019-01-07] MEDS: hydrOXYzine 10 MG tablet PO PRN (13:51)
--- NOTE | 2019-01-07 17:29 | NUR ---
[id number], Milagro. Patient nichristine Shane would like to speak to his case timothy. her number is [phone].
--- NOTE | 2019-01-07 18:20 | NUR ---
Problems reprioritized. Patient report given, questions answered & plan of care reviewed with Ludwig TURNER. Patient stable at transfer of care.
--- NOTE | 2019-01-07 18:30 | NUR ---
Patient in room PCU 3026w. I have received report from JOHNNY Spain and had the opportunity to ask questions and assume patient care. Patient asleep for bedside report. Protonix infusing per provider order. Will continue to monitor closely.
[2019-01-07 19:55] LABS: HEMATOCRIT 24.7 % (42.0-52.0); HEMOGLOBIN 8.1 g/dl (14.0-17.9); MEAN CORPUSCULAR HGB CONC 32.8 g/dL (33.0-36.5); MEAN CORPUSCULAR VOLUME 91.3 FL (78-98); MEAN PLATELET VOLUME 6.6 FL (7.4-10.4); PLATELET COUNT 63 X10'3 (140-440); RED CELL DISTRIBUTION WIDTH 16.4 % (11.5-14.5)
[2019-01-08] MEDS: lactulose 20gm/30ml cup PO SCH ×3 (00:36→17:10)
[2019-01-08] MEDS: pantoprazole 40MG/NS 100ML BAG 100 ML IV SCH ×5 (01:34→21:22)
[2019-01-08] MEDS: HYDROcodone/acetaminophen 10/325mg tab PO PRN (02:54)
[2019-01-08 03:00] VITALS: BP 106/86
[2019-01-08 05:47] LABS: ALANINE AMINOTRANSFERASE 12 U/L (12-78); ALBUMIN 1.7 G/DL (3.4-5.0); ALBUMIN/GLOBULIN RATIO 0.4 (1.1-1.5); ALKALINE PHOSPHATASE 145 IU/L (46-116); ANION GAP 9 (8-16); ASPARTATE AMINO TRANSFERASE 20 U/L (10-37); BILIRUBIN,TOTAL 1.3 MG/DL (0.1-1.0); BLOOD UREA NITROGEN 23 MG/DL (7-18); BUN/CREATININE RATIO 13.4 (5.4-32.0); CALCIUM 7.3 MG/DL (8.5-10.1); CHLORIDE 113 MMOL/L (99-107); CREATININE 1.72 MG/DL (0.60-1.10); GLUCOSE 74 MG/DL (70-104); MAGNESIUM 1.7 MG/DL (1.5-2.4); PHOSPHORUS 3.8 MG/DL (2.3-4.5); POTASSIUM 4.7 MMOL/L (3.5-5.1); SODIUM 140 MMOL/L (135-145); TOTAL CARBON DIOXIDE 17.9 MMOL/L (24-32); TOTAL PROTEIN 6.2 G/DL (6.4-8.2); eGFR 40 ML/MIN
--- NOTE | 2019-01-08 06:12 | NUR ---
Problems reprioritized. Patient report given, questions answered & plan of care reviewed with Ludwig TURNER. Patient stable at transfer of care.
[2019-01-08 06:24] LABS: BASOPHILS % (AUTO) 0.3 % (0-1); EOSINOPHILS # (AUTO) 0.2 X10'3 (0-0.9); EOSINOPHILS % (AUTO) 3.1 % (0-6); HEMATOCRIT 24.4 % (42.0-52.0); HEMOGLOBIN 8.1 g/dl (14.0-17.9); LYMPHOCYTES # (AUTO) 0.2 X10'3 (1.1-4.8); LYMPHOCYTES % (AUTO) 3.8 % (21-51); MEAN CORPUSCULAR HEMOGLOBIN 30.5 PG (27.0-31.0); MEAN CORPUSCULAR HGB CONC 33.3 g/dL (33.0-36.5); MEAN CORPUSCULAR VOLUME 91.5 FL (78-98); MEAN PLATELET VOLUME 6.9 FL (7.4-10.4); MONOCYTES # (AUTO) 0.4 X10'3 (0-0.9); MONOCYTES % (AUTO) 7.6 % (2-12); NEUTROPHILS # (AUTO) 4.7 X10'3 (1.8-7.7); NEUTROPHILS % (AUTO) 85.2 % (42-75); PLATELET COUNT 60 X10'3 (140-440); RED BLOOD COUNT 2.67 X10'6 (4.70-6.10); RED CELL DISTRIBUTION WIDTH 16.2 % (11.5-14.5); WHITE BLOOD COUNT 5.5 X10'3 (4.5-11.0)
--- NOTE | 2019-01-08 06:37 | NUR ---
Problems reprioritized. Patient report given, questions answered & plan of care reviewed with JOHNNY Spain.
[2019-01-08 06:47] VITALS: BP 99/81
[2019-01-08] MEDS: folic acid 0.4mg tablet PO SCH (07:10)
[2019-01-08] MEDS: ferrous sulfate 325mg tablet PO SCH (07:10)
[2019-01-08] MEDS: lactobacillus rhamnosus 10,000 MMU CELLS/CAPSULE PO SCH ×2 (07:10→19:51)
[2019-01-08] MEDS: thiamine 100mg tablet PO SCH (07:10)
[2019-01-08] MEDS: ascorbic acid 500mg tablet PO SCH (07:11)
[2019-01-08] MEDS: hydrOXYzine 10 MG tablet PO PRN (07:11)
[2019-01-08 11:00] VITALS: BP 123/81
[2019-01-08] MEDS ORDERED: albumin (human) 25% 100 ML IV solution IV ONE (14:45)
[2019-01-08 14:54] LABS: OCCULT BLOOD STOOL POSITIVE (Neg)
[2019-01-08 15:00] VITALS: BP 111/74
--- NOTE | 2019-01-08 18:13 | NUR ---
Patient in room PCU 8391a. I have received report from Judit RN and Carole RN and had the opportunity to ask questions and assume patient care. Patient asleep for bedside report. No IV access at this time and protonix order still current in eMAR. Will attempt to gain IV access and continue to monitor closely.
--- NOTE | 2019-01-08 18:34 | NUR ---
Problems reprioritized. Patient report given, questions answered & plan of care reviewed with Ludwig TURNER. Patient stable at transfer of care.
--- NOTE | 2019-01-08 18:54 | NUR ---
20G R upper arm placed. Protonix drip restarted at 1850 at 20 mL/hr. Will continue to monitor closely.
[2019-01-08 19:00] VITALS: BP 123/81
[2019-01-08 23:00] VITALS: BP 122/90
[2019-01-09] VITALS (16 sets, daily range): BP systolic 104–132; BP diastolic 52–83
[2019-01-09] MEDS: HYDROcodone/acetaminophen 10/325mg tab PO PRN ×2 (02:41→07:30)
[2019-01-09] MEDS: pantoprazole 40MG/NS 100ML BAG 100 ML IV SCH ×3 (02:46→11:00)
[2019-01-09 05:18] LABS: BASOPHILS % (AUTO) 0.4 % (0-1); EOSINOPHILS # (AUTO) 0.1 X10'3 (0-0.9); EOSINOPHILS % (AUTO) 1.2 % (0-6); HEMATOCRIT 27.9 % (42.0-52.0); LYMPHOCYTES # (AUTO) 0.2 X10'3 (1.1-4.8); LYMPHOCYTES % (AUTO) 3.4 % (21-51); MEAN CORPUSCULAR HEMOGLOBIN 29.6 PG (27.0-31.0); MEAN CORPUSCULAR HGB CONC 32.4 g/dL (33.0-36.5); MEAN CORPUSCULAR VOLUME 91.4 FL (78-98); MEAN PLATELET VOLUME 6.4 FL (7.4-10.4); MONOCYTES # (AUTO) 0.4 X10'3 (0-0.9); MONOCYTES % (AUTO) 7.7 % (2-12); NEUTROPHILS # (AUTO) 5.1 X10'3 (1.8-7.7); NEUTROPHILS % (AUTO) 87.3 % (42-75); PLATELET COUNT 66 X10'3 (140-440); RED BLOOD COUNT 3.05 X10'6 (4.70-6.10); RED CELL DISTRIBUTION WIDTH 16.5 % (11.5-14.5); WHITE BLOOD COUNT 5.8 X10'3 (4.5-11.0)
[2019-01-09 05:41] LABS: ALANINE AMINOTRANSFERASE 9 U/L (12-78); ALBUMIN 1.7 G/DL (3.4-5.0); ALBUMIN/GLOBULIN RATIO 0.4 (1.1-1.5); ALKALINE PHOSPHATASE 154 IU/L (46-116); ANION GAP 11 (8-16); ASPARTATE AMINO TRANSFERASE 15 U/L (10-37); BILIRUBIN,TOTAL 1.2 MG/DL (0.1-1.0); BLOOD UREA NITROGEN 29 MG/DL (7-18); BUN/CREATININE RATIO 16.1 (5.4-32.0); CALCIUM 7.8 MG/DL (8.5-10.1); CHLORIDE 112 MMOL/L (99-107); GLUCOSE 96 MG/DL (70-104); PHOSPHORUS 3.8 MG/DL (2.3-4.5); POTASSIUM 4.9 MMOL/L (3.5-5.1); SODIUM 140 MMOL/L (135-145); TOTAL CARBON DIOXIDE 17.1 MMOL/L (24-32); TOTAL PROTEIN 6.5 G/DL (6.4-8.2); eGFR 38 ML/MIN
--- NOTE | 2019-01-09 06:15 | NUR ---
Problems reprioritized. Patient report given, questions answered & plan of care reviewed with JOHNNY Spain.
[2019-01-09 06:41] LABS: PLATELET ESTIMATE DECREASED
[2019-01-09 06:43] LABS: ANISOCYTOSIS 1+
--- NOTE | 2019-01-09 07:04 | NUR ---
Patient in room PCU 3025. I have received report from Ludwig TURNER, and had the opportunity to ask questions and assume patient care.
[2019-01-09] MEDS: lactobacillus rhamnosus 10,000 MMU CELLS/CAPSULE PO SCH ×2 (07:29→20:14)
[2019-01-09] MEDS: lactulose 20gm/30ml cup PO SCH ×3 (07:29→17:07)
[2019-01-09] MEDS: thiamine 100mg tablet PO SCH (07:29)
[2019-01-09] MEDS: folic acid 0.4mg tablet PO SCH (07:29)
--- NOTE | 2019-01-09 12:06 | NUR ---
Spoke with pharmacy regarding the albumin order. The order states to give 4ooml of albumin and the directions stated only 2 bottles. The pharmacy stated that this was most likely a pre populated message and that they would correct the 2 bottles to 4.
--- NOTE | 2019-01-09 12:15 | NUR ---
Patient had para done with 13 Liters off. Post op vitals being performed.
--- NOTE | 2019-01-09 14:20 | NUR ---
Initial: Pt admit with anemia. Per MD progress notes Hgb stable however ascites is getting worse. Pt s/p paracentesis today with 13.5L removed. Pt continues on Na restricted diet previously with 100% PO intake however slowly has declined to 0-50% likely not meeting nutrient needs. Pt seen at bedside states he has a good appetite and denies any food allergies or difficulty chewing/swallowing. RD attempted to discuss ONS with pt however pt fell asleep and would not wake with verbal cues for further discussion. Pt provided with written heart healthy alternative write in menu to provide additional food options and RD contact information. Pt with cachectic appearance meeting criteria for malnutrition, MD notified. Recommend Nepro TID to optimize PO intake. ONS to be sent pending MD verification in [employer]. [facility] 01/08. Will continue to follow. Recommendations: 1) Continue Na restricted diet 2) Nepro TID to be sent pending MD verification in [facility] 3) Wt per rx Addendum: 01/09/19 at [address] Amended: Links added.
--- NOTE | 2019-01-09 18:30 | NUR ---
Problems reprioritized. Patient report given, questions answered & plan of care reviewed with Ludwig TURNER.
--- NOTE | 2019-01-09 18:35 | NUR ---
Patient in room PCU 3075W. I have received report from JOHNNY Spain and had the opportunity to ask questions and assume patient care. Patient awake for bedside report and stable at this time. On room air and saline locked with 20G in L upper arm. Will continue to monitor closely.
[2019-01-09] MEDS: ESOMEPRAZOLE 40 MG VIAL IV SCH (20:14)
[2019-01-10] VITALS (8 sets, daily range): BP systolic 107–125; BP diastolic 70–84
[2019-01-10] MEDS: lactulose 20gm/30ml cup PO SCH ×3 (00:12→16:00)
[2019-01-10] MEDS: HYDROcodone/acetaminophen 10/325mg tab PO PRN (05:11)
[2019-01-10 06:19] LABS: BASOPHILS % (AUTO) 0.2 % (0-1); EOSINOPHILS # (AUTO) 0.2 X10'3 (0-0.9); EOSINOPHILS % (AUTO) 2.4 % (0-6); HEMATOCRIT 26.5 % (42.0-52.0); HEMOGLOBIN 8.8 g/dl (14.0-17.9); LYMPHOCYTES # (AUTO) 0.4 X10'3 (1.1-4.8); LYMPHOCYTES % (AUTO) 5.4 % (21-51); MEAN CORPUSCULAR HEMOGLOBIN 30.1 PG (27.0-31.0); MEAN CORPUSCULAR HGB CONC 33.3 g/dL (33.0-36.5); MEAN CORPUSCULAR VOLUME 90.3 FL (78-98); MONOCYTES # (AUTO) 0.5 X10'3 (0-0.9); NEUTROPHILS # (AUTO) 5.6 X10'3 (1.8-7.7); PLATELET COUNT 66 X10'3 (140-440); RED BLOOD COUNT 2.93 X10'6 (4.70-6.10); RED CELL DISTRIBUTION WIDTH 16.5 % (11.5-14.5); WHITE BLOOD COUNT 6.6 X10'3 (4.5-11.0)
[2019-01-10 06:27] LABS: ALANINE AMINOTRANSFERASE 9 U/L (12-78); ALBUMIN 2.2 G/DL (3.4-5.0); ALBUMIN/GLOBULIN RATIO 0.6 (1.1-1.5); ALKALINE PHOSPHATASE 124 IU/L (46-116); ANION GAP 12 (8-16); ASPARTATE AMINO TRANSFERASE 14 U/L (10-37); BILIRUBIN,TOTAL 1.1 MG/DL (0.1-1.0); BLOOD UREA NITROGEN 29 MG/DL (7-18); BUN/CREATININE RATIO 16.2 (5.4-32.0); CALCIUM 7.5 MG/DL (8.5-10.1); CHLORIDE 114 MMOL/L (99-107); CREATININE 1.79 MG/DL (0.60-1.10); GLUCOSE 76 MG/DL (70-104); MAGNESIUM 2.1 MG/DL (1.5-2.4); PHOSPHORUS 3.2 MG/DL (2.3-4.5); POTASSIUM 4.7 MMOL/L (3.5-5.1); SODIUM 144 MMOL/L (135-145); TOTAL CARBON DIOXIDE 17.7 MMOL/L (24-32); eGFR 39 ML/MIN
--- NOTE | 2019-01-10 06:33 | NUR ---
Problems reprioritized. Patient report given, questions answered & plan of care reviewed with JOHNNY Liao.
[2019-01-10] MEDS ORDERED: nitroGLYCERIN 0.4mg SUBLingual tab SL PRN (07:30)
[2019-01-10] MEDS ORDERED: nitroGLYCERIN 0.4mg SUBLingual tab SL ONE (07:30)
--- NOTE | 2019-01-10 07:34 | NUR ---
Patient complaining of 10 out of 10 chest pain, substernal, no radiation, tight pain. He states that he has felt pain like this before following paracentesis. Yanni primary RN called Dr Weston. Stat EKG obtained. Orders to give nitro SL. Patient's BP 122/71. EKG taken to ER to be read. Will continue to monitor. - Addendum: 01/10/19 at 0739 by Laly Rainey RN EKG taken to ER. states No STEMI. Will continue to monitor. Addendum: 01/10/19 at 0745 by Laly Rainey RN Patient now states that pain is in abdomen. 01/23 same tightness, no radiation. Will administer morphine. Patient repositioned. Blood pressure 121/81 HR 107. Will continue to monitor.
[2019-01-10] MEDS: morphine 4 MG/ML inj SYRINge IV PRN (07:47)
[2019-01-10] MEDS: thiamine 100mg tablet PO SCH (08:00)
[2019-01-10] MEDS: lactobacillus rhamnosus 10,000 MMU CELLS/CAPSULE PO SCH ×2 (08:00→20:33)
[2019-01-10] MEDS: folic acid 0.4mg tablet PO SCH (08:00)
[2019-01-10] MEDS: ferrous sulfate 325mg tablet PO SCH (08:00)
[2019-01-10] MEDS: ascorbic acid 500mg tablet PO SCH (08:00)
--- NOTE | 2019-01-10 08:00 | NUR ---
Patient states chest pain is gone and now has pain in abdomen. Medicated with IV Morphine. Patient refused all po meds at 0800.
--- NOTE | 2019-01-10 08:30 | NUR ---
Patient resting quietly after meds, sleeping. In nad.
[2019-01-10] MEDS: ESOMEPRAZOLE 40 MG VIAL IV SCH ×2 (08:45→20:33)
--- NOTE | 2019-01-10 13:04 | NUR ---
Attempted visit with pt at bedside however pt was sleeping and did not wake with verbal cues. Written malnutrition education with ONS recommendation following discharge, ONS coupons, and RD contact information left at bedside. [facility] 01/08 and pt refusing meds today per med list, d/w dietary to send prunes with dinner tonight to help with BM. Will continue to follow. Addendum: 01/10/19 at [address] Amended: Links added.
--- NOTE | 2019-01-10 18:47 | NUR ---
Problems reprioritized. Patient report given, questions answered & plan of care reviewed with JOHNNY Key.
[2019-01-11 03:00] VITALS: BP 105/69
[2019-01-11] MEDS: HYDROcodone/acetaminophen 10/325mg tab PO PRN ×2 (03:12→19:20)
[2019-01-11 05:33] LABS: ALANINE AMINOTRANSFERASE 6 U/L (12-78); ALBUMIN 1.8 G/DL (3.4-5.0); ALBUMIN/GLOBULIN RATIO 0.5 (1.1-1.5); ALKALINE PHOSPHATASE 112 IU/L (46-116); ANION GAP 13 (8-16); ASPARTATE AMINO TRANSFERASE 12 U/L (10-37); BILIRUBIN,TOTAL 1.4 MG/DL (0.1-1.0); BLOOD UREA NITROGEN 35 MG/DL (7-18); BUN/CREATININE RATIO 17.2 (5.4-32.0); CALCIUM 7.4 MG/DL (8.5-10.1); CHLORIDE 112 MMOL/L (99-107); CREATININE 2.04 MG/DL (0.60-1.10); GLUCOSE 69 MG/DL (70-104); POTASSIUM 5.2 MMOL/L (3.5-5.1); SODIUM 141 MMOL/L (135-145); TOTAL CARBON DIOXIDE 16.4 MMOL/L (24-32); TOTAL PROTEIN 5.5 G/DL (6.4-8.2); eGFR 33 ML/MIN
[2019-01-11 05:37] LABS: BASOPHILS % (AUTO) 0.1 % (0-1); EOSINOPHILS # (AUTO) 0.1 X10'3 (0-0.9); EOSINOPHILS % (AUTO) 0.4 % (0-6); HEMATOCRIT 28.4 % (42.0-52.0); HEMOGLOBIN 9.2 g/dl (14.0-17.9); LYMPHOCYTES # (AUTO) 0.5 X10'3 (1.1-4.8); LYMPHOCYTES % (AUTO) 3.3 % (21-51); MEAN CORPUSCULAR HEMOGLOBIN 29.5 PG (27.0-31.0); MEAN CORPUSCULAR HGB CONC 32.5 g/dL (33.0-36.5); MEAN CORPUSCULAR VOLUME 90.9 FL (78-98); MEAN PLATELET VOLUME 7.2 FL (7.4-10.4); NEUTROPHILS # (AUTO) 12.3 X10'3 (1.8-7.7); NEUTROPHILS % (AUTO) 89.2 % (42-75); PLATELET COUNT 62 X10'3 (140-440); RED BLOOD COUNT 3.12 X10'6 (4.70-6.10); RED CELL DISTRIBUTION WIDTH 16.8 % (11.5-14.5); WHITE BLOOD COUNT 13.8 X10'3 (4.5-11.0)
[2019-01-11 06:00] VITALS: BP 116/69
--- NOTE | 2019-01-11 06:05 | NUR ---
Patient in room PCU 3025. I have received report from JOHNNY Key and had the opportunity to ask questions and assume patient care.
[2019-01-11] MEDS: ESOMEPRAZOLE 40 MG VIAL IV SCH ×2 (07:26→19:19)
[2019-01-11] MEDS: lactulose 20gm/30ml cup PO SCH ×3 (07:34→16:12)
[2019-01-11] MEDS: lactobacillus rhamnosus 10,000 MMU CELLS/CAPSULE PO SCH ×2 (07:34→19:19)
[2019-01-11] MEDS: thiamine 100mg tablet PO SCH (07:34)
[2019-01-11] MEDS: folic acid 0.4mg tablet PO SCH (07:35)
[2019-01-11 11:00] VITALS: BP 115/72
[2019-01-11 15:00] VITALS: BP 119/73
--- NOTE | 2019-01-11 18:05 | NUR ---
Patient in room PCU 3025. I have received report from Musa TURNER and had the opportunity to ask questions and assume patient care.
--- NOTE | 2019-01-11 18:16 | NUR ---
Problems reprioritized. Patient report given, questions answered & plan of care reviewed with JOHNNY Manriquez.
[2019-01-11 19:00] VITALS: BP 115/57
[2019-01-11] MEDS: ondansetron/PF 4mg/2ml inj IV PRN (19:39)
[2019-01-11 23:00] VITALS: BP 116/76
[2019-01-12 03:00] VITALS: BP 110/73
[2019-01-12 05:15] LABS: BASOPHILS % (AUTO) 0.1 % (0-1); EOSINOPHILS % (AUTO) 0.3 % (0-6); HEMATOCRIT 27.8 % (42.0-52.0); HEMOGLOBIN 9.1 g/dl (14.0-17.9); LYMPHOCYTES # (AUTO) 0.5 X10'3 (1.1-4.8); LYMPHOCYTES % (AUTO) 4.6 % (21-51); MEAN CORPUSCULAR HEMOGLOBIN 29.6 PG (27.0-31.0); MEAN CORPUSCULAR HGB CONC 32.8 g/dL (33.0-36.5); MEAN CORPUSCULAR VOLUME 90.3 FL (78-98); MEAN PLATELET VOLUME 7.1 FL (7.4-10.4); MONOCYTES # (AUTO) 0.8 X10'3 (0-0.9); MONOCYTES % (AUTO) 7.2 % (2-12); NEUTROPHILS # (AUTO) 9.8 X10'3 (1.8-7.7); NEUTROPHILS % (AUTO) 87.8 % (42-75); PLATELET COUNT 54 X10'3 (140-440); RED BLOOD COUNT 3.08 X10'6 (4.70-6.10); RED CELL DISTRIBUTION WIDTH 16.4 % (11.5-14.5); WHITE BLOOD COUNT 11.2 X10'3 (4.5-11.0)
[2019-01-12 05:18] LABS: ALANINE AMINOTRANSFERASE 7 U/L (12-78); ALBUMIN 1.9 G/DL (3.4-5.0); ALBUMIN/GLOBULIN RATIO 0.5 (1.1-1.5); ALKALINE PHOSPHATASE 124 IU/L (46-116); ANION GAP 7 (8-16); ASPARTATE AMINO TRANSFERASE 13 U/L (10-37); BILIRUBIN,TOTAL 1.1 MG/DL (0.1-1.0); BLOOD UREA NITROGEN 45 MG/DL (7-18); BUN/CREATININE RATIO 19.7 (5.4-32.0); CALCIUM 7.7 MG/DL (8.5-10.1); CHLORIDE 112 MMOL/L (99-107); CREATININE 2.29 MG/DL (0.60-1.10); GLUCOSE 87 MG/DL (70-104); MAGNESIUM 2.1 MG/DL (1.5-2.4); PHOSPHORUS 4.4 MG/DL (2.3-4.5); POTASSIUM 5.3 MMOL/L (3.5-5.1); SODIUM 139 MMOL/L (135-145); TOTAL CARBON DIOXIDE 19.6 MMOL/L (24-32); eGFR 29 ML/MIN
[2019-01-12 06:00] VITALS: BP 108/70
--- NOTE | 2019-01-12 06:10 | NUR ---
Patient in room PCU 3025. I have received report from JOHNNY Manriquez and had the opportunity to ask questions and assume patient care.
--- NOTE | 2019-01-12 06:10 | NUR ---
Problems reprioritized. Patient report given, questions answered & plan of care reviewed with Musa TURNER.
[2019-01-12] MEDS: ferrous sulfate 325mg tablet PO SCH (07:37)
[2019-01-12] MEDS: ascorbic acid 500mg tablet PO SCH (07:37)
[2019-01-12] MEDS: ESOMEPRAZOLE 40 MG VIAL IV SCH (07:37)
[2019-01-12] MEDS: lactulose 20gm/30ml cup PO SCH ×4 (07:37→20:11)
[2019-01-12] MEDS: folic acid 0.4mg tablet PO SCH (07:37)
[2019-01-12] MEDS: thiamine 100mg tablet PO SCH (07:37)
[2019-01-12] MEDS: lactobacillus rhamnosus 10,000 MMU CELLS/CAPSULE PO SCH ×2 (07:45→20:12)
[2019-01-12 11:00] VITALS: BP 99/67
--- NOTE | 2019-01-12 12:01 | NUR ---
Left message for Dr Weston about calling [facility].
[2019-01-12] MEDS ORDERED: dextrose 50%-water 50ml dispensing syringe IV ONE ×3 (12:04→12:10)
--- NOTE | 2019-01-12 12:12 | NUR ---
Dr Weston called back. Asked what was happening. I let him know patient was ALOC from baseline, and that blood sugar was 68. Informed him I gave him d50W per protocol. He asked me for his blood pressure and pulse rate. He said, "okay thanks," after I gave him the blood pressure (100/63) and pulse (111).
[2019-01-12 12:35] LABS: ABG BASE EXCESS -7.5 mmol/L (-2.0-3.0); ABG HCO3 15.9 mmol/L (22.0-26.0); ABG OXYGEN SATURATION 96.6 % (95-98); ABG PCO2 (T) 25.5 mmHg (35.0-45.0); ABG PH (T) 7.413 (7.350-7.450); ABG PO2 (T) 93.9 mmHg (83-108); FCOHb 0.6 % (0.5-1.5); FMetHb 0.2 % (0.3-1.12); FO2Hb 95.8 % (94-100); TOTAL HEMOGLOBIN 9.3 G/dl (14.0-17.9)
--- NOTE | 2019-01-12 14:27 | NUR ---
Reassessment: Per RN notes pt s/p rapid response today, currently documented with ALOC and obtunded. Per documentation patient's last PO intake was breakfast yesterday documented at 100/50/100%, 0% PO intake since then. Per RN pt not waking up for meals, discussed recommendation for assistance with meals. RN reports no visible difficulties with chewing or swallowing. ONS verification still pending MD verification in [employer]. Ammonia WNL on 01/04, elevated at 246 today. Pt receiving routine Lactulose. Will f/u with patient for food preferences once more alert and oriented. [facility] 01/11. Will continue to follow. Recommendations: 1) Continue Na restricted diet 2) Nepro TID to be sent pending MD verification in [employer] 3) Pt would likely benefit from assistance with meals to encourage PO intake and ensure pt waking up for meals 4) Continue Lactulose per MD given elevated NH3 5) Wt per rx Addendum: 01/12/19 at [address] Amended: Links added.
[2019-01-12 15:00] VITALS: BP 114/81
[2019-01-12 18:00] VITALS: BP 137/92
--- NOTE | 2019-01-12 18:08 | NUR ---
Problems reprioritized. Patient report given, questions answered & plan of care reviewed with JOHNNY Manriquez.
[2019-01-12] MEDS ORDERED: albumin (human) 25% 100 ML IV solution IV ONE (20:00)
[2019-01-12] MEDS: pantoprazole 40 MG vial IV SCH (20:48)
[2019-01-12 22:00] VITALS: BP 111/69
[2019-01-13 02:00] VITALS: BP 133/81
[2019-01-13] MEDS: lactulose 20gm/30ml cup PO SCH ×4 (03:32→20:42)
[2019-01-13 06:00] VITALS: BP 124/80
--- NOTE | 2019-01-13 06:30 | NUR ---
Problems reprioritized. Patient report given, questions answered & plan of care reviewed with Claudine RN.
[2019-01-13 06:40] LABS: BASOPHILS % (AUTO) 0.1 % (0-1); EOSINOPHILS % (AUTO) 0.2 % (0-6); HEMATOCRIT 27.1 % (42.0-52.0); LYMPHOCYTES # (AUTO) 0.5 X10'3 (1.1-4.8); LYMPHOCYTES % (AUTO) 5.3 % (21-51); MEAN CORPUSCULAR HEMOGLOBIN 29.6 PG (27.0-31.0); MEAN CORPUSCULAR VOLUME 89.8 FL (78-98); MEAN PLATELET VOLUME 6.9 FL (7.4-10.4); MONOCYTES # (AUTO) 0.6 X10'3 (0-0.9); MONOCYTES % (AUTO) 6.9 % (2-12); NEUTROPHILS # (AUTO) 7.9 X10'3 (1.8-7.7); NEUTROPHILS % (AUTO) 87.5 % (42-75); PLATELET COUNT 73 X10'3 (140-440); RED BLOOD COUNT 3.02 X10'6 (4.70-6.10); RED CELL DISTRIBUTION WIDTH 16.7 % (11.5-14.5)
--- NOTE | 2019-01-13 06:45 | NUR ---
Patient in room PCU 3025. I have received report from JOHNNY Manriquez and had the opportunity to ask questions and assume patient care.
[2019-01-13 06:54] LABS: ALANINE AMINOTRANSFERASE 8 U/L (12-78); ALBUMIN 2.5 G/DL (3.4-5.0); ALBUMIN/GLOBULIN RATIO 0.6 (1.1-1.5); ALKALINE PHOSPHATASE 134 IU/L (46-116); ANION GAP 12 (8-16); ASPARTATE AMINO TRANSFERASE 14 U/L (10-37); BILIRUBIN,TOTAL 1.7 MG/DL (0.1-1.0); BLOOD UREA NITROGEN 47 MG/DL (7-18); BUN/CREATININE RATIO 18.8 (5.4-32.0); CALCIUM 7.7 MG/DL (8.5-10.1); CHLORIDE 111 MMOL/L (99-107); GLUCOSE 83 MG/DL (70-104); MAGNESIUM 2.2 MG/DL (1.5-2.4); PHOSPHORUS 4.1 MG/DL (2.3-4.5); POTASSIUM 5.4 MMOL/L (3.5-5.1); SODIUM 140 MMOL/L (135-145); TOTAL CARBON DIOXIDE 16.7 MMOL/L (24-32); TOTAL PROTEIN 6.6 G/DL (6.4-8.2); eGFR 26 ML/MIN
[2019-01-13] MEDS: pantoprazole 40 MG vial IV SCH ×2 (09:33→20:40)
[2019-01-13] MEDS: lactobacillus rhamnosus 10,000 MMU CELLS/CAPSULE PO SCH ×2 (09:33→20:40)
[2019-01-13] MEDS: folic acid 0.4mg tablet PO SCH (09:33)
[2019-01-13] MEDS: thiamine 100mg tablet PO SCH (09:34)
[2019-01-13 11:00] VITALS: BP 134/83
[2019-01-13 15:00] VITALS: BP 128/81
[2019-01-13] MEDS ORDERED: bisacodyl 10mg suppository rectal RC STA (15:03)
[2019-01-13 16:01] LABS: CLARITY,URINE SLIGHTLY CLOUDY (Clear); COLOR,URINE YELLOW (Yellow); GLUCOSE, URINE NEGATIVE (Neg); KETONES,URINE TRACE mg/dl (Neg); LEUKOCYTE ESTERASE ,URINE TRACE (Neg); NITRITES, URINE NEGATIVE (Neg); OCCULT BLOOD,URINE LARGE (Neg); PROTEIN,URINE 30 mg/dl (Neg); UROBILINOGEN,URINE 0.2 E.U/dL (0.2-1.0)
[2019-01-13 16:09] LABS: SODIUM,URINE RANDOM < 15 MEQ/L
[2019-01-13 16:10] LABS: UA COLLECTION TYPE NON-SPECIFIED
[2019-01-13 16:12] LABS: BACTERIA,URINE FEW /HPF (Neg); MUCUS STRANDS FEW /LPF (Neg); RBC,URINE 50-100 /HPF (0-2); SQUAMOUS EPITHELIAL CELL,UR FEW /LPF (FEW)
[2019-01-13 16:31] LABS: UA EOSINOPHILS FEW EOS /HPF
[2019-01-13] MEDS ORDERED: morphine 2 MG/ML inj. syringe IV PRN (17:35)
--- NOTE | 2019-01-13 18:30 | NUR ---
Patient in room PCU 3025. I have received report from Claudine TURNER and had the opportunity to ask questions and assume patient care.
--- NOTE | 2019-01-13 18:30 | NUR ---
Problems reprioritized. Patient report given, questions answered & plan of care reviewed with JOHNNY Manriquez.
[2019-01-13 19:00] VITALS: BP 130/68
--- NOTE | 2019-01-13 19:29 | NUR ---
Pt continuously seizing, Chintan Valencia TIE IN HAND notified and requested to have [facility] called, 2mg ativan ordered and administered
[2019-01-13] MEDS ORDERED: LORazepam 2 mg/ml vial ONE (19:32)
[2019-01-13] MEDS ORDERED: levetiracetam-NS 1000mg/100ml 100 ML IV ONE (19:55)
[2019-01-13] MEDS ORDERED: lactulose 20gm/30ml cup PO SCH (20:00)
--- NOTE | 2019-01-13 22:38 | NUR ---
Chintan Valencia MAT MAKING MACHINE TENDER notified of pts fever and said okay to give tylenol. Also notified him of pt sustaining heart rate in 120s-130s; no new orders.
[2019-01-13 23:00] VITALS: BP 111/68
[2019-01-14] MEDS: lactulose 20gm/30ml cup PO SCH (02:49)
[2019-01-14 03:00] VITALS: BP 110/68
--- NOTE | 2019-01-14 03:29 | NUR ---
Joon Oneill) in room and was made aware of patients declining condition, has been in contact with MD already about the option of comfort care, and is requesting to put pt on comfort care. Chintan Valencia LOGISTICS LEAD notified and orders are in.
[2019-01-14] MEDS ORDERED: acetaminophen 325mg tablet PO PRN (03:35)
[2019-01-14] MEDS: LORazepam 2 mg/ml vial IV PRN ×3 (04:11→19:33)
[2019-01-14] MEDS: morphine 10mg/ml inj. IV PRN ×3 (05:40→19:33)
--- NOTE | 2019-01-14 06:15 | NUR ---
Problems reprioritized. Patient report given, questions answered & plan of care reviewed with Judit TURNER.
[2019-01-14 06:32] LABS: BASOPHILS % (AUTO) 0.2 % (0-1); EOSINOPHILS % (AUTO) 0.1 % (0-6); HEMATOCRIT 25.1 % (42.0-52.0); HEMOGLOBIN 8.3 g/dl (14.0-17.9); LYMPHOCYTES # (AUTO) 0.5 X10'3 (1.1-4.8); LYMPHOCYTES % (AUTO) 6.2 % (21-51); MEAN CORPUSCULAR HEMOGLOBIN 29.6 PG (27.0-31.0); MEAN CORPUSCULAR HGB CONC 33.2 g/dL (33.0-36.5); MEAN PLATELET VOLUME 6.8 FL (7.4-10.4); MONOCYTES # (AUTO) 0.7 X10'3 (0-0.9); MONOCYTES % (AUTO) 8.7 % (2-12); NEUTROPHILS # (AUTO) 6.8 X10'3 (1.8-7.7); NEUTROPHILS % (AUTO) 84.8 % (42-75); PLATELET COUNT 57 X10'3 (140-440); RED BLOOD COUNT 2.82 X10'6 (4.70-6.10); RED CELL DISTRIBUTION WIDTH 16.4 % (11.5-14.5)
[2019-01-14 06:45] LABS: ALBUMIN 2.1 G/DL (3.4-5.0); ALBUMIN/GLOBULIN RATIO 0.5 (1.1-1.5); ALKALINE PHOSPHATASE 131 IU/L (46-116); ANION GAP 18 (8-16); ASPARTATE AMINO TRANSFERASE 15 U/L (10-37); BILIRUBIN,TOTAL 1.8 MG/DL (0.1-1.0); BLOOD UREA NITROGEN 53 MG/DL (7-18); CALCIUM 7.6 MG/DL (8.5-10.1); CHLORIDE 113 MMOL/L (99-107); CREATININE 2.79 MG/DL (0.60-1.10); GLUCOSE 68 MG/DL (70-104); MAGNESIUM 2.2 MG/DL (1.5-2.4); PHOSPHORUS 3.8 MG/DL (2.3-4.5); POTASSIUM 4.9 MMOL/L (3.5-5.1); SODIUM 144 MMOL/L (135-145); TOTAL PROTEIN 6.3 G/DL (6.4-8.2); eGFR 23 ML/MIN
[2019-01-14 06:49] LABS: ALANINE AMINOTRANSFERASE < 6 U/L (12-78)
[2019-01-14 06:54] LABS: TOTAL CARBON DIOXIDE 13.5 MMOL/L (24-32)
[2019-01-14] MEDS ORDERED: Levetiracetam-NS 500mg/100ml 100 ML IV SCH (08:00)
[2019-01-14 11:00] VITALS: BP 115/75
[2019-01-14] MEDS ORDERED: scopolamine 1.5mg patch.TD72 TD SCH (12:25)
--- NOTE | 2019-01-14 12:39 | NUR ---
Patient on comfort care. Focus assessment performed with minimal movement to patient in order to keep the patient as comfortable as possible.
--- NOTE | 2019-01-14 14:14 | NUR ---
Pt has been made DNR w/ comfort care. [facility] 01/13. Will continue to follow per protocol. Rec: 1. routine bowel care Addendum: 01/14/19 at [address] Amended: Links added.
[2019-01-14 18:00] VITALS: BP 123/79
--- NOTE | 2019-01-14 18:20 | NUR ---
Patient in room PCU 3025. I have received report from Judit TURNER and had the opportunity to ask questions and assume patient care.
[2019-01-15] MEDS: morphine 10mg/ml inj. IV PRN ×2 (00:46→05:13)
[2019-01-15] MEDS: LORazepam 2 mg/ml vial IV PRN (00:47)
--- NOTE | 2019-01-15 06:05 | NUR ---
Patient in room PCU 3025. I have received report from Damián RN and had the opportunity to ask questions and assume patient care.
--- NOTE | 2019-01-15 06:10 | NUR ---
Problems reprioritized. Patient report given, questions answered & plan of care reviewed with Henok TURNER.
[2019-01-15 06:51] VITALS: BP 113/74
== END 2019-01-15 16:05 | disposition expired | DRG 441 ==
LOC: ER 04:23 → ICU 2S 11:59 → PCU 3S 01-07
PROVIDERS: ADMIT Internal Medicine Critical Care Medicine; ATTEND Internal Medicine Critical Care Medicine
PROC: 30233N1 Transfusion of Nonautologous Red Blood Cells into Peripheral Vein, Percutaneous Approach (ICD-10-PCS; 2019-01-04)
PROC: 0W9G3ZZ Drainage of Peritoneal Cavity, Percutaneous Approach (ICD-10-PCS; 2019-01-04)
PROC: 30233N1 Transfusion of Nonautologous Red Blood Cells into Peripheral Vein, Percutaneous Approach (ICD-10-PCS; 2019-01-07)
PROC: 0W9G3ZZ Drainage of Peritoneal Cavity, Percutaneous Approach (ICD-10-PCS; principal; 2019-01-09)
DX: K72.90 Hepatic failure, unspecified without coma (principal); I81 Portal vein thrombosis; E43 Unspecified severe protein-calorie malnutrition; K92.2 Gastrointestinal hemorrhage, unspecified; S02.81XA Fracture of other specified skull and facial bones, right side, initial encounter for closed fracture; S22.31XA Fracture of one rib, right side, initial encounter for closed fracture; K76.6 Portal hypertension; D62 Acute posthemorrhagic anemia; K70.31 Alcoholic cirrhosis of liver with ascites; G40.409 Other generalized epilepsy and epileptic syndromes, not intractable, without status epilepticus; K42.9 Umbilical hernia without obstruction or gangrene; E87.6 Hypokalemia; I50.9 Heart failure, unspecified; N18.3 Chronic kidney disease, stage 3 (moderate); X58.XXXA Exposure to other specified factors, initial encounter; W18.39XA Other fall on same level, initial encounter; Y93.89 Activity, other specified; Y92.89 Other specified places as the place of occurrence of the external cause; Y99.8 Other external cause status; Z95.1 Presence of aortocoronary bypass graft; Z82.49 Family history of ischemic heart disease and other diseases of the circulatory system; Z79.899 Other long term (current) drug therapy; Z68.39 Body mass index [BMI] 39.0-39.9, adult; Z59.0 Homelessness; Z66 Do not resuscitate; Z51.5 Encounter for palliative care
CPT/HCPCS: 36415; 36600; 49083; 71045; 74018; 74177; 80053; 81001; 82140; 82272; 82570; 82607; 82728; 82803; 82945; 82948; 83540; 83550; 83735; 83986; 84100; 84132; 84157; 84300; 84484; 85018; 85025; 85027; 85610; 86885; 86900; 86901; 86920; 87070; 87081; 87207; 89051; 93005; 96365; 97110; 97116; 97162; 97530; 99291; 99292; C9113; G0378; J1953; J2060; J2270; J2405; J3480; P9016; P9047; Q9967